=== PATIENT | male | born 1950 | race Caucasian/White ===

== ENCOUNTER 2016-11-22 15:38 | Inpatient (IN) | payer BC, OTHER ==
[~2016-11-22] VITALS: Ht 182.9 cm; Wt 95.0 kg
[2016-11-22 15:41] VITALS: Ht 182.9 cm; Wt 95.0 kg
[2016-11-22] MEDS ORDERED: SODIUM CHLORIDE 0.9% 500ML 500 ML IV STA (15:59)
[2016-11-22] MEDS ORDERED: SODIUM CHLORIDE 0.9% 1000ML 1,000 ML IV STA (15:59)
[2016-11-22] MEDS ORDERED: ONDANSETRON INJ 2 MG/ML 2 ML VIAL IV STA (15:59)
[2016-11-22] MEDS ORDERED: MULT-506 PO (16:11)
[2016-11-22] MEDS ORDERED: ASPI81TA28 PO (16:11)
[2016-11-22] MEDS: MoRPHine SULFATE 10 MG/ML CARP/VIAL IV PRN ×3 (16:13→17:14)
[2016-11-22] MEDS ORDERED: OPTIRAY 320 IV PRN (16:15)
--- NOTE | 2016-11-22 16:22 | EMERGENCY ROOM VISIT NOTE ---
History Report prepared by Ashwin: Sanjuana Yi Under the Supervision of: Dr. Aftab Yañez M.D. First contact with patient: 15:53 Chief Complaint: FALL Stated Complaint: FALL, BACK PAIN History of Present Illness The patient is a 66 year old male who presents to the Emergency Room with complaints of an episode of a fall occurring last night. He tripped going down the carpeted stairs. was outside when the incident occurred. They estimate that he fell down 6-7 stairs. He tumbled down the stairs as opposed to sliding down on his back and buttocks. He denies hitting his head or LOC. The patient is unsure if he hit his back when he fell. Immediately after the fall, he began experiencing back pain. Movement and deep breaths exacerbate his pain. The patient lay on the ground all night because he was having too much pain to move. He states that he feels better if he remains still. His pain comes in spasms and he rates it has a 10/10 in severity. The patient denies neck pain, abdominal pain, numbness, tingling, and any history of back injuries. He was brought to the ED by ambulance. He was given 200 mcg of fentanyl en route, which helped to alleviate some of his pain. He takes a daily baby aspirin and denies any other blood thinners. Family states that the patient's head looks "swollen" so they are not sure if he hit his head or not. Source of History: patient, family, spouse/significant other Onset: last night Position: other (global) Symptom Intensity: 10/10 Quality: other (spasm) Timing: other (episode) Modifying Factors (Worsening): breathing, movement Modifying Factors (Relieving): narcotics, other (remaining still) Associated Symptoms: + back pain, No LOC, No neck pain, No abdominal pain, No numbness Review of Systems See HPI for pertinent positives & negatives. A total of 10 systems reviewed and were otherwise negative. Past Medical & Surgical Medical Problems: (1) UMBILICAL HERNIA W OBSTR Family History No pertinent history stated. Social History Smoking Status: Current Every Day Smoker Alcohol Use: none Drug Use: none Marital Status: Housing Status: lives with family Occupation Status: employed Current/Historical Medications Scheduled Aspirin (Aspirin Ec), 81 MG PO DAILY Multivitamin (Multivitamin), 1 TAB PO DAILY Allergies Coded Allergies: No Known Allergies (Unverified , 11/22/16) Physical Exam Vital Signs Date Time Temp Pulse Resp B/P (MAP) Pulse Ox O2 Delivery O2 Flow Rate FiO2 11/22/16 16:41 99 18 154/94 96 Nasal Cannula 2.0 11/22/16 15:41 37.0 101 16 144/104 90 Room Air Physical Exam GENERAL: Patient is in moderate distress secondary to pain, lying on his right side. HEENT: No acute trauma, normocephalic atraumatic, mucous membranes moist, no nasal congestion, no scleral icterus. NECK: No stridor, no adenopathy, no meningismus, trachea is midline. LUNGS: Clear to auscultation bilaterally, no wheeze, no rhonchi, breath sounds equal. HEART: Without murmurs gallops or rubs, regular rate and rhythm. ABDOMEN: Soft, nontender, bowel sounds positive, no hernias, no peritonitis. BACK: Tender to the upper lumbar spine although there is no bony step-off. He is tender along the left lumbar musculature with what appears to be a contusion forming. Pain worsens with movement. EXTREMITIES: There is no obvious gross deformity. Contusion to the left elbow posteriorly and right knee anteriorly but no cellulitis or edema. NEUROLOGIC: Oriented x 3, no acute motor or sensory deficits, no focal weakness. SKIN: No rash, no jaundice, no diaphoresis. Medical Decision & Procedures ER Provider Diagnostic Interpretation: Radiology results as stated below per my review and radiologist interpretation: CHEST ONE VIEW PORTABLE CLINICAL HISTORY: 66 years-old Male presenting with fall. TECHNIQUE: Portable upright AP view of the chest was obtained. COMPARISON: 05/19/2010. FINDINGS: Cardiomediastinal silhouette shifted to the right, new from prior. Right lung volume loss with elevation of the right hemidiaphragm. Overall increased density of the right lung diffusely. Blunting of the right costophrenic angle. No pneumothorax. Osseous structures normal. Gaseous distention of the stomach. IMPRESSION: 1. Interval development of diffuse right lung volume loss with associated mediastinal shift. This could be related to prior surgery in the appropriate clinical setting. If no prior surgical history exists, further evaluation with CT is warranted. 2. Small right pleural effusion or pleural thickening. Electronically signed by: Charles Castañeda M.D. 11/22/2016 4:59 PM Dictated Date/Time: 11/22/2016 4:56 PM Laboratory Results 11/22/16 16:20 11/22/16 16:20 Test 11/22/16 16:20 Red Blood Count 4.58 M/uL (4.7-6.1) Mean Corpuscular Volume 98.3 fL (80-100) Mean Corpuscular Hemoglobin 34.1 pg (25-34) Mean Corpuscular Hemoglobin Concent 34.7 g/dl (32-36) RDW Standard Deviation 45.3 fL (36.4-46.3) RDW Coefficient of Variation 12.7 % (11.5-14.5) Mean Platelet Volume 10.7 fL (7.4-10.4) Anion Gap 7.0 mmol/L (3-11) Est Creatinine Clear Calc Drug Dose 98.4 ml/min Estimated GFR () 107.1 Estimated GFR (Non- 92.4 BUN/Creatinine Ratio 15.9 (10-20) Calcium Level 8.6 mg/dl (8.5-10.1) Total Bilirubin 0.7 mg/dl (0.2-1) Aspartate Amino Transf (AST/SGOT) 27 U/L (15-37) Alanine Aminotransferase (ALT/SGPT) 43 U/L (12-78) Alkaline Phosphatase 69 U/L (45-117) Total Creatine Kinase 123 U/L (39-308) Troponin I < 0.015 ng/ml (0-0.045) Total Protein 7.8 gm/dl (6.4-8.2) Albumin 3.4 gm/dl (3.4-5.0) Globulin 4.4 gm/dl (2.5-4.0) Albumin/Globulin Ratio 0.8 (0.9-2) Laboratory results reviewed by me. Medications Administered Medications (Trade) Dose Ordered Sig/[place] Route Start Time Stop Time Status Last Admin Dose Admin Morphine Sulfate (MoRPHine SULFATE INJ) 6 mg Q15M PRN IV 11/22/16 16:00 12/06/16 15:59 11/22/16 17:14 6 MG Ondansetron HCl (Zofran Inj) 4 mg NOW STAT IV 11/22/16 15:59 11/22/16 16:04 DC 11/22/16 16:13 4 MG Sodium Chloride 500 ml @ 999 mls/hr Q31M STAT IV 11/22/16 15:59 11/22/16 16:29 DC 11/22/16 15:59 999 MLS/HR ECG Indication: back/shoulder pain Rate (beats per minute): 93 Rhythm: normal sinus Findings: no acute ischemic change, no ectopy ED Course 1553: The patient was evaluated in room C10. A complete history and physical exam was performed. 1559: NSS 1000 ml @ 125 mls/hr IV, NSS 500 ml @ 999 mls/hr IV, Zofran 4 mg IV 1600: Morphine sulfate 6 mg IV - PRN 1722: Lorazepam 1 mg IV 1735: The patient was signed out to Dr. Navas at the change of shift. Medical Decision Differential diagnoses includes lumbar or thoracic fracture, lumbar spasm, cervical spine injury, head injury, dehydration, electrolyte imbalance, anemia, intraabdominal or chest trauma. There is no leukocytosis or concerning anemia. No significant electrolyte abnormality, kidney failure or hepatitis. No evidence for rhabdomyolysis. EKG shows a normal sinus rhythm, no acute ischemia. Cardiac enzyme testing times one is not consistent with acute cardiac injury. Chest x-ray shows some mediastinal shift to the right and a small right pleural effusion-a chest CT was recommended. Imaging of the brain, C-spine, thoracic/lumbar spine, chest and abdomen are pending. The patient received IV saline, he was given IV morphine and IV Zofran, he received IV Ativan. He is still having pain with movement. At this point, the case is being assumed by Dr. Navas, please see her notes for the results of the CT imaging. I suspect the patient will require a hospitalization just given the amount of pain he seems to be experiencing. I am somewhat reassured by the fact that he has no radicular symptoms or numbness or tingling in his lower extremities. He is under log roll only precautions as we are still waiting for the CT results. Certainly, fracture is a concern given his severe pain. Medication Reconcilliation Current Medication List: was personally reviewed by me Blood Pressure Screening Patient's blood pressure: Elevated blood pressure Blood pressure disposition: Elevated BP felt to be situational Impression Primary Impression: Lower back pain Additional Impressions: Abnormal chest xray Fall down stairs Scribe Attestation The scribe's documentation has been prepared under my direction and personally reviewed by me in its entirety. I confirm that the note above accurately reflects all work, treatment, procedures, and medical decision making performed by me. Departure Information Dispostion Still a Patient Referrals Elmer Farias M.D. (PCP) Patient Instructions My [facility] Problem Qualifiers Primary Impression: Lower back pain Chronicity: acute Back pain laterality: left Sciatica presence: without sciatica Qualified Codes: M54.5 - Low back pain Additional Impressions: Fall down stairs Encounter type: initial encounter Qualified Codes: W10.8XXA - Fall (on) ( from) other stairs and steps, initial encounter
[2016-11-22 16:44] LABS: MEAN CELL VOLUME 98.3 fL (80-100); MEAN CORPUSCULAR HEMOGLOBIN 34.1 pg (25-34); MEAN CORPUSCULAR HGB CONC 34.7 g/dl (32-36); MEAN PLATELET VOLUME 10.7 fL (7.4-10.4); PLATELET COUNT 181 K/uL (130-400); RED BLOOD COUNT 4.58 M/uL (4.7-6.1); WHITE BLOOD COUNT 8.42 K/uL (4.8-10.8)
--- NOTE | 2016-11-22 17:01 | DIAGNOSTIC IMAGING REPORT ---
CHEST ONE VIEW PORTABLE CLINICAL HISTORY: 66 years-old Male presenting with fall. TECHNIQUE: Portable upright AP view of the chest was obtained. COMPARISON: 05/19/2010. FINDINGS: Cardiomediastinal silhouette shifted to the right, new from prior. Right lung volume loss with elevation of the right hemidiaphragm. Overall increased density of the right lung diffusely. Blunting of the right costophrenic angle. No pneumothorax. Osseous structures normal. Gaseous distention of the stomach. IMPRESSION: 1. Interval development of diffuse right lung volume loss with associated mediastinal shift. This could be related to prior surgery in the appropriate clinical setting. If no prior surgical history exists, further evaluation with CT is warranted. 2. Small right pleural effusion or pleural thickening. Electronically signed by: Charles Castañeda M.D. 11/22/2016 4:59 PM Dictated Date/Time: 11/22/2016 4:56 PM
[2016-11-22 17:04] LABS: ALT/SGPT 43 U/L (12-78); AST/SGOT 27 U/L (15-37); BLOOD UREA NITROGEN 13 mg/dl (7-18); BUN/CREATININE RATIO 15.9 (10-20); CALCIUM 8.6 mg/dl (8.5-10.1); CARBON DIOXIDE 26 mmol/L (21-32); CHLORIDE 106 mmol/L (98-107); GLUCOSE 124 mg/dl (70-99); POTASSIUM 4.2 mmol/L (3.5-5.1); SODIUM 139 mmol/L (136-145)
[2016-11-22 17:09] LABS: ALB/GLOB RATIO 0.8 (0.9-2); ALKALINE PHOSPHATASE 69 U/L (45-117)
[2016-11-22] MEDS ORDERED: LORAZEPAM 2 MG/ML 1 ML VIAL IV STA (17:22)
--- NOTE | 2016-11-22 17:39 | DIAGNOSTIC IMAGING REPORT ---
CT SCAN OF THE BRAIN WITHOUT IV CONTRAST CLINICAL HISTORY: Fall. Trauma. COMPARISON STUDY: No priors. TECHNIQUE: Unenhanced axial CT scan of the brain is performed from the vertex to the skull base. FINDINGS: Brain parenchyma: There are age-related involutional changes noting mild subcortical and periventricular microangiopathic change. There is no hemorrhage, mass effect, or evidence of acute territorial ischemia by CT criteria. Mineralization is noted in the basal ganglia. Ashley-white matter is preserved. No extra-axial fluid collection is seen. Ventricles, sulci, cisterns: Prominent secondary to involutional change. Intracranial vasculature: There is atherosclerotic calcification of the cavernous carotid arteries. Calvarium: There is no depressed calvarial fracture. Sinuses and mastoids: The visualized paranasal sinuses are clear. The mastoid air cells are well pneumatized. Orbits: The bony orbits are grossly intact. IMPRESSION: No acute intracranial abnormality. Electronically signed by: Aftab Stringer M.D. 11/22/2016 5:28 PM Dictated Date/Time: 11/22/2016 5:26 PM
--- NOTE | 2016-11-22 17:39 | DIAGNOSTIC IMAGING REPORT ---
CT SCAN OF THE CERVICAL SPINE CLINICAL HISTORY: Trauma. Fall. COMPARISON STUDY: No priors. TECHNIQUE: CT scan of the cervical spine is performed from the skull base to the upper thoracic spine. Images are reviewed in the axial, sagittal, and coronal planes. IV contrast was not administered for this examination. A dose lowering technique was utilized adhering to the principles of ALARA. FINDINGS: Skeletal structures: The skeletal structures are osteopenic. There is no evidence of fracture or subluxation involving the cervical spine. Vertebral body height and alignment are maintained. The odontoid process and lateral masses are intact noting mild productive degenerative change. The atlantoaxial articulation is preserved. The spinous processes appear intact. Anterior osteophytes are seen from C4 through C6. There is mild to moderate multilevel cervical spondylosis. Uncovertebral and facet arthropathy are seen at several levels. Intervertebral discs: There is moderate degenerative disc space narrowing seen at C5-C6. Only mild disc space narrowing is seen at the remaining cervical levels. Central canal: A posterior disc osteophyte complex at C5-C6 may contribute to mild acquired compromise of the central canal. Soft tissues: The prevertebral and paraspinous soft tissues are within normal limits. A calcified sialolith is noted in the left parotid gland. Mild atherosclerotic calcification is seen in the left carotid bulb. Calvarium: The visualized calvarium at the skull base appears intact. Brain parenchyma: Partially visualized brain parenchyma the skull base is within normal limits. Sinuses and mastoids: The visualized paranasal sinuses are clear. The mastoid air cells are well pneumatized. Lung apices: Clear as visualized. IMPRESSION: 1. There is no evidence of fracture or subluxation involving the cervical spine. 2. Osteopenia and spondylotic change as above. Electronically signed by: Aftab Stringer M.D. 11/22/2016 5:36 PM Dictated Date/Time: 11/22/2016 5:32 PM
--- NOTE | 2016-11-22 17:56 | DIAGNOSTIC IMAGING REPORT ---
LUMBAR SPINE WITHOUT CLINICAL HISTORY: 66 years-old Male presenting with fall, pain. TECHNIQUE: Multidetector CT of the lumbar spine was performed without the use of intravenous contrast. IV contrast: None. A dose lowering technique was used consistent with the principles of ALARA (as low as reasonably achievable). COMPARISON: Correlation made to CT chest from 2011. CT DOSE (mGy.cm): The estimated cumulative dose is 3017.14 inclusive of the abdomen and pelvis, thoracic and cervical spine. FINDINGS: Lead Nitrate Processor topogram: Unremarkable. Dextroscoliotic curvature of the lumbar spine centered at L2-3. Vertebral body heights and alignment otherwise preserved. L3-4 and L5-S1 demonstrate osteophytosis and small disc bulges. Minimal intervertebral height loss at L5-S1. Multilevel facet arthropathy also noted. No osseous neural foraminal or spinal canal narrowing. No acute fracture or subluxation. Lucent lesion in the right ilium subjacent to the right sacroiliac joint may be degenerative in etiology. Paraspinal soft tissues remarkable for atherosclerosis of the normal caliber abdominal aorta. No paraspinal fat infiltration. IMPRESSION: No acute osseous injury of the lumbar spine. Electronically signed by: Charles Castañeda M.D. 11/22/2016 5:55 PM Dictated Date/Time: 11/22/2016 5:50 PM
--- NOTE | 2016-11-22 17:59 | DIAGNOSTIC IMAGING REPORT ---
CT SCAN OF THE CHEST, ABDOMEN, AND PELVIS WITH IV CONTRAST CLINICAL HISTORY: Trauma. Fall. COMPARISON STUDY: Chest x-ray dated 11/22/2016. Chest CT dated 07/22/2011. TECHNIQUE: Following the IV administration of 116 of Optiray 320, CT scan of the chest, abdomen, and pelvis was performed from the thoracic inlet to the proximal femora. Images are reviewed in the axial, sagittal, and coronal planes. IV contrast was administered without complication. Automated dose control exposure was utilized. A dose lowering technique was utilized adhering to the principles of ALARA. The examination is degraded by streak artifact from the patient's arms which could not be elevated above the chest or abdomen. CT DOSE: 3017.14 mGy.cm FINDINGS: CHEST: Thyroid: Imaged portions of the thyroid gland are normal in size and attenuation. Thoracic aorta: There is mild atherosclerotic calcification of the thoracic aorta, which is normal in caliber and demonstrates standard 3-vessel arch anatomy. No dissection is seen. Pulmonary vasculature: The pulmonary trunk is normal in caliber. There are no filling defects identified in the central pulmonary vessels to indicate pulmonary was. Note that this examination was not protocoled for evaluation of the pulmonary arteries. Heart: The heart is enlarged and without pericardial effusion. There are scattered coronary artery calcifications. Lungs and pleural spaces: No pneumothorax is seen. There is trace left pleural fluid. Segmental atelectasis is seen at the right lung base. No airspace consolidation is seen typical for pneumonia. Scattered calcified granulomas are observed. The trachea and central airways are clear. Mediastinum: There is no mediastinal hematoma. There are scattered subcentimeter mediastinal lymph nodes. These are not pathologically enlarged by size criteria. Pepper: Prominent hilar nodes measure up to 12 mm in short axis. Axillae: There is no axillary lymphadenopathy. Bony thorax: The skeletal structures are osteopenic. There are acute fractures of the left posterior 5th through 11th ribs. Several of the fractures are mildly distracted. There is a comminuted fracture of the right posterior 10th rib. The thoracic spine appears intact. Arthritic change is present in the thoracic spine and shoulders. No lytic or blastic lesions are identified. ABDOMEN AND PELVIS: Liver: The contrast-enhanced liver is top normal in size measuring 17.2 cm in length. The liver demonstrates diffusely diminished attenuation consistent with hepatic steatosis. There is no intrahepatic or ductal dilatation. The hepatic veins and portal veins are patent. Gallbladder: Unremarkable. Spleen: Normal in size and attenuation. Pancreas: Moderately atrophic. Adrenal glands: Unremarkable. Kidneys: The contrast enhanced kidneys demonstrate cortical atrophy and are without hydronephrosis. The kidneys enhance symmetrically. A subcentimeter cortical hypodensity in the left kidney likely represents a cyst but is too small for definitive characterization. Abdominal vasculature: The abdominal aorta is normal in course and caliber noting mild to moderate atherosclerotic calcification. Stomach and bowel: There is a small hiatal hernia. The stomach and duodenum otherwise normal in configuration. No bowel obstruction is seen. There is mild to moderate colonic diverticulosis without CT evidence of acute diverticulitis. The appendix is not identified and reported surgically absent. Peritoneum: There is no intraperitoneal free air or abdominal ascites. Lymphadenopathy: None. Pelvic viscera: The bladder, prostate, and seminal vesicles are normal as visualized. Skeletal structures: The skeletal structures are osteopenic. The lumbosacral spine and bony pelvis appear intact. Mild lumbosacral spondylosis is observed. No lytic or blastic lesions are seen. IMPRESSION: 1. There are acute left posterior 5th through 11th rib fractures. Several of these are mildly distracted. 2. There is a comminuted fracture of the right posterior 10th rib. 3. No pneumothorax is identified. 4. There is trace pleural fluid on the left and segmental atelectasis is present at the right lung base. 5. There is no evidence of traumatic injury to the thoracic aorta. 6. There is no evidence of solid organ injury in the abdomen or pelvis. 7. Hepatic steatosis. 8. Cardiomegaly and hiatal hernia. 9. Mild to moderate colonic diverticulosis without CT evidence of acute diverticulitis. 10. Mildly enlarged hilar lymph nodes are of indeterminant significance. 11. Additional findings as above. Electronically signed by: Aftab Stringer M.D. 11/22/2016 5:58 PM Dictated Date/Time: 11/22/2016 5:37 PM
--- NOTE | 2016-11-22 18:04 | DIAGNOSTIC IMAGING REPORT ---
THORACIC SPINE WITHOUT CLINICAL HISTORY: 66 years-old Male presenting with fall, pain. TECHNIQUE: Multidetector CT of the thoracic spine was performed without the use of intravenous contrast. IV contrast: None. A dose lowering technique was used consistent with the principles of ALARA (as low as reasonably achievable). COMPARISON: CT chest from 2012. CT DOSE (mGy.cm): The estimated cumulative dose is 3017.14 inclusive of the abdomen and pelvis, cervical spine, and lumbar spine. FINDINGS: Acute Care Certified Nursing Assistant topogram: Unremarkable. Vertebral body heights and alignment preserved. Lucent lesion in the T6 vertebral body, indeterminate and likely a hemangioma. No intervertebral disc height loss. Partially visualized fracture of the right posterior 10th rib. No other acute fracture or subluxation. Mild multilevel degenerative changes primarily in the lower thoracic spine including facet arthropathy. Paraspinal soft tissues remarkable for dependent pulmonary opacities, possibly atelectasis. Paraspinal musculature normal. IMPRESSION: No acute osseous injury of the thoracic spine. Partially visualized fracture of the right posterior 10th rib. Electronically signed by: Charles Castañeda M.D. 11/22/2016 6:03 PM Dictated Date/Time: 11/22/2016 5:55 PM
[2016-11-22] MEDS ORDERED: MoRPHine SULFATE 2 MG/ML CARP IV PRN (20:00)
[2016-11-22] MEDS ORDERED: ONDANSETRON INJ 2 MG/ML 2 ML VIAL IV PRN (20:00)
[2016-11-22 20:06] VITALS: BMI 27.2
[2016-11-22] MEDS: OXYCODONE HCL IR 5 MG TAB (IMMEDIATE RELEASE) PO PRN (20:35)
[2016-11-22 20:41] VITALS: BP 153/89; PULSE 99; TEMP 36.5; O2SAT 95
[2016-11-22] MEDS: CeleBREX 100 MG CAP PO SCH (21:36)
[2016-11-22] MEDS: ACETAMINOPHEN IV 1,000 MG in EMPTY BAG 0 ML IV SCH (21:37)
[2016-11-22 23:37] VITALS: BP 154/90; PULSE 77; TEMP 36.5; O2SAT 95
--- NOTE | 2016-11-22 23:46 | EMERGENCY ROOM VISIT NOTE ---
ED Visit Note First contact with patient: 17:37 I received signout at the change of shift from Dr. Aftab Yañez, pending CT scan results. Multiple CT scans had been ordered. Most notable, the patient has acute rib fractures of the left 5 through 11 and a comminuted isolated rib fracture of the right rib 10. Patient has no pneumothorax. There is no solid organ injury. Please refer to radiology's read for further detail. I did speak with Dr. Darryn Mercer of the hospitalist service who stated surgical consult would be advised or transfer. He then requested Dr. Jonas be contacted. I did speak with Dr. Jonas who recommended that I speak with surgery , Dr. Craig. He agreed that the patient is stable for admission to [facility] for pain management. The patient had nearly 24 hours after the fall with no complications such as pneumothorax. The hospitalist service declined admission. Dr. Craig was contacted and did accept the patient for admission and further management. Family was informed of the findings and agrees with the plan. Diagnosis: Multiple rib fractures
[2016-11-23] VITALS (8 sets, daily range): BP systolic 127–160; BP diastolic 82–100; PULSE 72–88; TEMP 36.4–37; O2SAT 92–97
[2016-11-23] MEDS: OXYCODONE HCL IR 5 MG TAB (IMMEDIATE RELEASE) PO PRN ×5 (03:25→22:06)
[2016-11-23 03:47] LABS: URINE APPEARANCE CLEAR (CLEAR); URINE BILIRUBIN NEG (NEG); URINE COLOR YELLOW; URINE NITRITE NEG (NEG); URINE PH 5.5 (4.5-7.5); URINE SPECIFIC GRAVITY > 1.045 (1.000-1.030); UROBILINOGEN NEG (NEG)
[2016-11-23 04:00] LABS: MANUAL MICROSCOPIC REQUIRED? NO; REVIEW REQ? NO
[2016-11-23 05:31] LABS: HEMATOCRIT 43.1 % (42-52); MEAN CELL VOLUME 99.8 fL (80-100); MEAN CORPUSCULAR HEMOGLOBIN 34.5 pg (25-34); MEAN CORPUSCULAR HGB CONC 34.6 g/dl (32-36); MEAN PLATELET VOLUME 10.5 fL (7.4-10.4); PLATELET COUNT 160 K/uL (130-400); RED BLOOD COUNT 4.32 M/uL (4.7-6.1); WHITE BLOOD COUNT 7.72 K/uL (4.8-10.8)
[2016-11-23] MEDS: ACETAMINOPHEN IV 1,000 MG in EMPTY BAG 0 ML IV SCH ×3 (05:57→22:07)
--- NOTE | 2016-11-23 07:15 | History and Physical ---
History & Physical Date & Time of Service: Nov 23, 2016 at 07:11 Chief Complaint: Ribs, Multiple Fractures Primary Care Physician: Elmer Farias M.D. History of Present Illness pt s/p trip /fall down approx 6 steps 2 nights ago. laid on floor overnight secondary to pain. baig-cat scanned and only injury appears to be 5 rib fractures. no other complaints. Past Medical/Surgical History Medical Problems: (1) UMBILICAL HERNIA W OBSTR Status: Resolved Social History Smoking Status: Current Every Day Smoker Drug Use: none Marital Status: Occupational Status: employed Immunizations History of Influenza Vaccine: No History of Tetanus Vaccine?: Yes History of Pneumococcal: No History of Hepatitis B Vaccine: No Multi-Drug Resistant Organisms History of MDRO: No Allergies Coded Allergies: No Known Allergies (Unverified , 11/22/16) Home Medications Scheduled Aspirin (Aspirin Ec), 81 MG PO DAILY Multivitamin (Multivitamin), 1 TAB PO DAILY Review of Systems Cardiovascular: + chest pain Abdomen: + pain Physical Exam Vital Signs Date Time Temp Pulse Resp B/P (MAP) Pulse Ox O2 Delivery O2 Flow Rate FiO2 11/23/16 04:00 96 Nasal Cannula 2.0 11/23/16 03:18 36.7 73 21 139/86 (103) 97 Nasal Cannula 2.0 11/23/16 00:00 95 Nasal Cannula 2.0 11/22/16 23:37 36.5 77 18 154/90 (111) 95 Nasal Cannula 2.0 11/22/16 20:41 36.5 99 18 153/89 (110) 95 Nasal Cannula 2.0 11/22/16 20:06 Nasal Cannula 2.0 11/22/16 20:03 95 18 142/89 96 Room Air 11/22/16 17:57 99 18 145/80 95 Nasal Cannula 2.0 11/22/16 16:41 99 18 154/94 96 Nasal Cannula 2.0 11/22/16 15:41 37.0 101 16 144/104 90 Room Air General Appearance: + mild distress Head: normocephalic, atraumatic Eyes: PERRL, EOMI ENT: hearing grossly normal Neck: supple, no JVD Respiratory/Chest: no respiratory distress, no accessory muscle use Cardiovascular: regular rate, rhythm Abdomen/GI: non tender, soft, + pertinent finding (tenderness over left rib cage diffusely) Neurologic/Psych: alert, oriented x 3 Skin: normal color, warm/dry Diagnostics Laboratory Results Results Past 24 Hours Test 11/22/16 16:20 11/23/16 03:30 11/23/16 05:20 Range/Units White Blood Count 8.42 7.72 4.8-10.8 K/uL Red Blood Count 4.58 4.32 4.7-6.1 M/uL Hemoglobin 15.6 14.9 14.0-18.0 g/dL Hematocrit 45.0 43.1 42-52 % Mean Corpuscular Volume 98.3 99.8 80-100 fL Mean Corpuscular Hemoglobin 34.1 34.5 25-34 pg Mean Corpuscular Hemoglobin Concent 34.7 34.6 32-36 g/dl RDW Standard Deviation 45.3 46.4 36.4-46.3 fL RDW Coefficient of Variation 12.7 12.7 11.5-14.5 % Platelet Count 181 160 130-400 K/uL Mean Platelet Volume 10.7 10.5 7.4-10.4 fL Sodium Level 139 136-145 mmol/L Potassium Level 4.2 3.5-5.1 mmol/L Chloride Level 106 98-107 mmol/L Carbon Dioxide Level 26 21-32 mmol/L Anion Gap 7.0 3-11 mmol/L Blood Urea Nitrogen 13 7-18 mg/dl Creatinine 0.80 0.60-1.40 mg/dl Est Creatinine Clear Calc Drug Dose 98.4 ml/min Estimated GFR () 107.1 Estimated GFR (Non- 92.4 BUN/Creatinine Ratio 15.9 10-20 Random Glucose 124 70-99 mg/dl Calcium Level 8.6 8.5-10.1 mg/dl Total Bilirubin 0.7 0.2-1 mg/dl Aspartate Amino Transf (AST/SGOT) 27 15-37 U/L Alanine Aminotransferase (ALT/SGPT) 43 12-78 U/L Alkaline Phosphatase 69 45-117 U/L Total Creatine Kinase 123 39-308 U/L Troponin I < 0.015 0-0.045 ng/ml Total Protein 7.8 6.4-8.2 gm/dl Albumin 3.4 3.4-5.0 gm/dl Globulin 4.4 2.5-4.0 gm/dl Albumin/Globulin Ratio 0.8 0.9-2 Urine Color YELLOW Urine Appearance CLEAR CLEAR Urine pH 5.5 4.5-7.5 Urine Specific [place] > 1.045 1.000-1.030 Urine Protein NEG NEG Urine Glucose (UA) NEG NEG Urine Ketones 1+ NEG Urine Occult Blood NEG NEG Urine Nitrite NEG NEG Urine Bilirubin NEG NEG Urine Urobilinogen NEG NEG Urine Leukocyte Esterase NEG NEG Diagnostic Radiology rib fx's 5-11. no pneumothorax. no other abnormality Impression Assessment and Plan 1. traumatic rib fractures times 5 stable c/o of severe pain though after speaking to his nurse he did not get anything other than roxicodone overnight as he was sleeping will add duragesic patch as well as abdominal binder. will re-examine later today to see how this regiment does for him d/c planning Advanced Directives Existing Living Will: No Existing Power of Printed Forms Proofreader: No VTE Prophylaxis VTE Risk Assessment Done? Y/N: Yes Risk Level: Moderate
[2016-11-23] MEDS ORDERED: FENTANYL PATCH REMOVE & WASTE SCH (07:29)
[2016-11-23] MEDS ORDERED: FENTANYL 50 MCG/HR TDSY TD SCH (07:30)
[2016-11-23 07:44] LABS: PARTIAL THROMBOPLASTIN RATIO 1.1; PROTHROMBIN TIME (PATIENT) 10.7 SECONDS (9.0-12.0)
[2016-11-23] MEDS: ENOXAPARIN 40 MG/0.4 ML SYR SQ SCH (08:16)
[2016-11-23] MEDS: CeleBREX 100 MG CAP PO SCH ×2 (08:17→21:03)
[2016-11-23] MEDS: CHECK FENTANYL PATCH PLACEMENT SCH ×3 (08:19→23:21)
--- NOTE | 2016-11-23 09:43 | DIAGNOSTIC IMAGING REPORT ---
TWO VIEW CHEST CLINICAL HISTORY: Fall with rib fractures. FINDINGS: PA and lateral chest radiographs are compared to chest x-ray and chest CT dated 11/22/2016. The PA view is degraded by patient rotation. The heart is enlarged. The pulmonary vasculature is noncongested. Segmental atelectasis is present the right lung base. There is a trace right pleural effusion. Mild atelectasis is seen at the left lung base. There is no pneumothorax. Bilateral rib fractures are noted. IMPRESSION: 1. Bilateral rib fractures. No pneumothorax is seen. 2. Segmental atelectasis and trace pleural fluid is again seen at the right lung base. 3. Cardiomegaly without radiographic evidence of congestive failure. Electronically signed by: Aftab Stringer M.D. 11/23/2016 9:42 AM Dictated Date/Time: 11/23/2016 9:39 AM
[2016-11-23] MEDS ORDERED: RXC5 PO (12:10)
[2016-11-23] MEDS ORDERED: DRGTP50 TD (12:10)
[2016-11-23] MEDS ORDERED: CLB100 PO (12:10)
--- NOTE | 2016-11-23 12:12 | Discharge Instructions ---
Discharge Instructions Date of Service Nov 23, 2016. Admission Reason for Admission: Ribs, Multiple Fractures Discharge Discharge Diagnosis / Problem: rib fractures Discharge Goals Goal(s): Decrease discomfort Activity Recommendations Activity Limitations: resume your previous activity Driving or Machine Use: no driving while using patch or Oxycodone . Instructions / Follow-Up Instructions / Follow-Up Dr. Craig in 1-2 weeks, call [phone] to schedule, [address] Continue to use spirometer at home every hour while awake Current Hospital Diet Patient's current hospital diet: Regular Diet Discharge Diet Recommended Diet: Regular Diet Pending Studies Studies pending at discharge: no Medical Emergencies . Who to Call and When: Medical Emergencies: If at any time you feel your situation is an emergency, please call 911 immediately. . Non-Emergent Contact Non-Emergency issues call your: Surgeon Call Non-Emergent contact if: you have a fever, temperature is above 101.5, your pain is not controlled, you have any medication questions . "Provider Documentation" section prepared by Barrett Trevino. . VTE Core Measure Inpt VTE Proph given/why not?: SCD's [place] Drug Monitoring Program Search Results: no issues identified
--- NOTE | 2016-11-23 13:32 | Progress Note ---
Progress Note Date of Service Nov 23, 2016. Progress Note pain control marginal will keep here today if not improved in AM will ask anesthesia to see for possible block
[2016-11-23] MEDS ORDERED: IV FLUIDS COMPLETED PRN (15:45)
[2016-11-23] MEDS: MoRPHine SULFATE 4 MG/ML 1 ML CARP\\VIAL IV PRN (19:48)
[2016-11-24] VITALS (9 sets, daily range): BP systolic 102–150; BP diastolic 69–96; PULSE 72–96; TEMP 36.6–36.9; O2SAT 90–95
[2016-11-24] MEDS: OXYCODONE HCL IR 5 MG TAB (IMMEDIATE RELEASE) PO PRN ×2 (04:02→08:11)
[2016-11-24] MEDS: ACETAMINOPHEN IV 1,000 MG in EMPTY BAG 0 ML IV SCH ×3 (06:04→21:53)
[2016-11-24] MEDS: CHECK FENTANYL PATCH PLACEMENT SCH (08:07)
[2016-11-24] MEDS: ENOXAPARIN 40 MG/0.4 ML SYR SQ SCH (08:08)
[2016-11-24] MEDS: CeleBREX 100 MG CAP PO SCH (08:08)
--- NOTE | 2016-11-24 08:31 | Clinical Documentation Query ---
MARCELLUS Purcell : CLINICAL DOCUMENTATION QUERIES QUERY 1 OF 2 Patient is a 66 year old male admitted s/p fall down approximately 6 steps with acute rib fractures. H&P documentation includes "traumatic rib fractures times 5". CT scan of the chest, however, is read to include "there are acute left posterior 5th through 11th rib fractures and "there is a comminuted fracture of the right posterior 10th rib". To ascertain the clinical integrity of the EMR, please clarify as suggested below. Thank you. In your clinical opinion is this patient being managed for: ( ) Traumatic left posterior rib fractures times 5 ( X) Traumatic left posterior rib fractures times 7 and comminuted traumatic right posterior rib fracture ( ) Other explanation of clinical findings (Please Explain) ( ) Unable to determine (Please Define) ( ) Need to Discuss ( ) Not Agree The medical record reflects the following clinical findings, treatment, and risk factors. Clinical Indicators: As above Treatment: Duragesic, abdominal binder Risk Factors: trauma QUERY 2 OF 2 Initial chest radiograph reading included: "Interval development of diffuse right lung volume loss ". CT scan of the chest reiterated these findings, noting "segmental atelectasis is present at the right lung base". Patient has been ordered incentive spirometry, analgesia, and an abdominal binder in attempt to control pain and enhance oxygenation/willingness to deep breath. As appropriate, consider explicit documentation as suggested below as this impacts DRG assignment. Thank you. In your clinical opinion is this patient being managed for: ( X ) Atelectasis ( ) Other explanation of clinical findings (Please Explain) ( ) Unable to determine (Please Define) ( ) Need to Discuss ( ) Not Agree The medical record reflects the following clinical findings, treatment, and risk factors. Clinical Indicators: As above Treatment:Patient has been ordered incentive spirometry, analgesia, and an abdominal binder Risk Factors: Pain associated with fractures. Please clarify and document your clinical opinion in the progress notes and discharge summary. Terms such as "probable", "suspected", "likely", "questionable", "possible", or "still to be ruled out" are acceptable. IF IN AGREEMENT, YOU MUST DOCUMENT ABOVE DIAGNOSTIC STATEMENT IN DAILY PROGRESS NOTES AND DISCHARGE SUMMARY. This document is not part of the patient's record. Thank You, Juancarlos Clark, MARKO [phone]
--- NOTE | 2016-11-24 09:14 | Surgery Progress Note ---
Surgery Progress Note Date of Service Nov 24, 2016. Subjective + complaints (pain) Objective Vital Signs: Date Time Temp Pulse Resp B/P (MAP) Pulse Ox O2 Delivery O2 Flow Rate FiO2 11/24/16 08:00 Room Air 11/24/16 07:25 36.9 84 18 133/96 (108) 92 Room Air 11/24/16 04:16 36.6 76 18 150/95 (113) 93 Room Air 11/24/16 04:00 Room Air 11/24/16 00:00 36.9 77 20 139/87 (104) 91 Room Air 11/23/16 23:59 Room Air 11/23/16 20:00 Room Air 11/23/16 19:36 37.0 88 18 160/100 (120) 92 Room Air 11/23/16 16:00 Room Air 11/23/16 15:28 36.6 77 22 159/97 (117) 93 Room Air 11/23/16 12:00 Room Air 11/23/16 11:26 36.4 79 18 127/82 (97) 94 Room Air General Appearance: + moderate distress Assessment & Plan multiple rib fx left 5-11, right 10 continues to have pain, will ask anesthesia to see for possible epidural cont IS A/P rib fractures times 7 with atelectasis pt seen. as above. mostly having spasms will add ativan q12 hours for spasms discussed/consult anesthesia for possible block not ready for d/c yet
[2016-11-24] MEDS: MoRPHine SULFATE 4 MG/ML 1 ML CARP\\VIAL IV PRN (09:27)
[2016-11-24] MEDS ORDERED: LORAZEPAM 0.5 MG TAB PO PRN (09:30)
[2016-11-24] MEDS ORDERED: NALOXONE HCL 0.4 MG/1 ML VIAL/CARP IV PRN (09:45)
[2016-11-24] MEDS ORDERED: FENTANYL PATCH REMOVE & WASTE SCH (10:00)
[2016-11-24] MEDS ORDERED: CeleBREX 100 MG CAP PO ONE (10:00)
--- NOTE | 2016-11-24 10:02 | Anesthesiology Progress Note ---
Anesthesia Progress Note Date of Service Nov 24, 2016. Progress Notes Asked to evaluate 66yo male for pain management. Pt fell down stairs and sustained multiple rib fractures. He is presently on IV acetaminophen, fentanyl patch, po and iv narcotic. States he is comfortable lying still, but has severe pain in ribs on movement and has paroxysms of pain. PMH is non- contributory. Pt is a smoker but reportedly was on no meds prior to fall. He did receive Lovenox injection this morning. Thoracic epidural infusion can be used to provide analgesia for rib fractures. However, this morning's Lovenox dose contraindicates epidural at this time. Discussed with surgical staff who planned to D/C Lovenox. Will re-evaluate tomorrow and discuss with pt and surgeon regarding possible epidural for analgesia at that time.
[2016-11-24] MEDS: SODIUM CHLORIDE 0.9% 1000ML 1,000 ML IV SCH (10:25)
[2016-11-24] MEDS: HYDROmorphone HCL 0.5MG/ML 50 ML CASSETTE IV PRN ×4 (10:26→23:18)
[2016-11-24] MEDS: CeleBREX 200 MG CAP PO SCH (20:47)
[2016-11-24] MEDS: LORAZEPAM 0.5 MG TAB PO SCH (20:48)
[2016-11-25 03:51] VITALS: BP 128/85; PULSE 66; TEMP 36.7; O2SAT 91
[2016-11-25] MEDS: ACETAMINOPHEN IV 1,000 MG in EMPTY BAG 0 ML IV SCH ×3 (05:39→22:00)
[2016-11-25] MEDS: HYDROmorphone HCL 0.5MG/ML 50 ML CASSETTE IV PRN ×4 (07:02→22:35)
[2016-11-25 08:05] VITALS: BP 124/82; PULSE 79; TEMP 36.5; O2SAT 91
[2016-11-25] MEDS: CeleBREX 200 MG CAP PO SCH ×2 (09:03→21:58)
[2016-11-25] MEDS: LORAZEPAM 0.5 MG TAB PO SCH ×2 (09:03→21:11)
--- NOTE | 2016-11-25 09:43 | Surgery Progress Note ---
Surgery Progress Note Date of Service Nov 25, 2016. Subjective pain control better, Ativan seemed to help the most, not used GREEN PRIZE PACKER this AM but does have basal of 0.5mg Objective Vital Signs: Date Time Temp Pulse Resp B/P (MAP) Pulse Ox O2 Delivery O2 Flow Rate FiO2 11/25/16 08:05 36.5 79 16 124/82 (96) 91 Room Air 11/25/16 03:51 36.7 66 16 128/85 (99) 91 Room Air 11/25/16 00:20 Room Air 11/24/16 23:12 36.7 77 16 126/69 (88) 90 Room Air 11/24/16 19:05 36.8 83 18 135/85 (102) 91 Room Air 11/24/16 15:45 Room Air 11/24/16 15:35 36.6 81 18 128/82 (97) 90 Room Air 11/24/16 12:02 96 16 102/72 (82) 91 Room Air 11/24/16 11:20 36.9 96 16 91 2.0 General Appearance: no apparent distress Assessment & Plan multiple rib fx left 5-11, right 10 pain control better, will stop basal rate on GREEN PRIZE PACKER anesthesia to see again, see how he is doing without basal rate, Lovenox held for possible epidural hopefully transition to po meds only over next 24-48 hrs (ativan, oxycodone, celebrex) seen with Rafa Mccoy
[2016-11-25 09:46] VITALS: O2SAT 91
[2016-11-25] MEDS ORDERED: LORA-741 PO (10:01)
[2016-11-25] MEDS ORDERED: OXYC-57 PO (10:02)
[2016-11-25] MEDS: SODIUM CHLORIDE 0.9% 1000ML 1,000 ML IV SCH (12:06)
[2016-11-25] MEDS ORDERED: NURSING VERBAL MED ORDER ONE (12:15)
[2016-11-25 12:18] VITALS: BP 152/90; PULSE 70; TEMP 36.7; O2SAT 93
[2016-11-25 15:00] VITALS: BP 155/94; PULSE 73; TEMP 36.7; O2SAT 92
[2016-11-25 23:00] VITALS: BP 137/90; PULSE 77; TEMP 36.9; O2SAT 92
[2016-11-26] VITALS (16 sets, daily range): BP systolic 103–152; BP diastolic 74–99; PULSE 67–110; TEMP 36.5–36.9; O2SAT 90–94
[2016-11-26] MEDS: ACETAMINOPHEN IV 1,000 MG in EMPTY BAG 0 ML IV SCH ×3 (05:44→21:33)
[2016-11-26] MEDS: HYDROmorphone HCL 0.5MG/ML 50 ML CASSETTE IV PRN ×4 (07:07→23:06)
[2016-11-26 08:14] LABS: HEMATOCRIT 40.8 % (42-52); MEAN CELL VOLUME 98.6 fL (80-100); MEAN CORPUSCULAR HGB CONC 35.5 g/dl (32-36); MEAN PLATELET VOLUME 10.7 fL (7.4-10.4); PLATELET COUNT 148 K/uL (130-400); RED BLOOD COUNT 4.14 M/uL (4.7-6.1); WHITE BLOOD COUNT 4.25 K/uL (4.8-10.8)
[2016-11-26 08:49] LABS: CREATININE 0.61 mg/dl (0.60-1.40)
[2016-11-26] MEDS: LORAZEPAM 0.5 MG TAB PO SCH ×2 (09:10→20:44)
[2016-11-26] MEDS: CeleBREX 200 MG CAP PO SCH ×2 (09:11→20:44)
[2016-11-26] MEDS: SODIUM CHLORIDE 0.9% 1000ML 1,000 ML IV SCH (10:03)
--- NOTE | 2016-11-26 10:35 | Surgery Progress Note ---
Surgery Progress Note Date of Service Nov 26, 2016. Subjective No nausea, No vomiting Pain is controlled on his lying still but he is still having some discomfort when he tries to sit up. It difficulty sitting up today when I was into visit. He denies shortness of breath. He has not had a cough or hemoptysis. Objective Vital Signs: Date Time Temp Pulse Resp B/P (MAP) Pulse Ox O2 Delivery O2 Flow Rate FiO2 11/26/16 07:20 Room Air 11/26/16 07:16 36.8 81 19 152/90 (110) 91 Room Air 11/26/16 03:22 36.5 67 16 146/93 (110) 93 Room Air 11/25/16 23:26 Room Air 11/25/16 23:00 36.9 77 16 137/90 (106) 92 Room Air 11/25/16 15:20 Room Air 11/25/16 15:00 36.7 73 20 155/94 (114) 92 Room Air 11/25/16 12:18 36.7 70 16 152/90 (110) 93 Room Air Respiratory/Chest: lungs clear Abdomen: normal bowel sounds, non tender, non distended, soft Laboratory Results: Results Past 24 Hours Test 11/26/16 07:20 Range/Units White Blood Count 4.25 4.8-10.8 K/uL Red Blood Count 4.14 4.7-6.1 M/uL Hemoglobin 14.5 14.0-18.0 g/dL Hematocrit 40.8 42-52 % Mean Corpuscular Volume 98.6 80-100 fL Mean Corpuscular Hemoglobin 35.0 25-34 pg Mean Corpuscular Hemoglobin Concent 35.5 32-36 g/dl RDW Standard Deviation 45.6 36.4-46.3 fL RDW Coefficient of Variation 12.7 11.5-14.5 % Platelet Count 148 130-400 K/uL Mean Platelet Volume 10.7 7.4-10.4 fL Creatinine 0.61 0.60-1.40 mg/dl Est Creatinine Clear Calc Drug Dose 140.5 ml/min Estimated GFR () 119.8 Estimated GFR (Non- 103.3 Assessment & Plan He has multiple rib fractures. He continues to have pain with movement. I don' t think he can go home with this level of discomfort. I discussed with anesthesia placement of an epidural catheter for which she has been previously evaluated. We'll await their opinion. I'll
--- NOTE | 2016-11-26 15:29 | Anesthesiology Progress Note ---
Anesthesia Progress Note Date of Service Nov 26, 2016. Progress Notes Pt seen and interviewed re: thoracic epidural to help with pain control for bilateral rib fractures. Lovenox has been held. Coags wnl. Risks/benefits explained and patient was consented. Procedure done under sterile/aseptic technique. Monitors placed. Attempted placement at T6-T7, and T7-T8 level using both midline and paramedian approach, but unsuccessful. Procedure aborted per patient request. Will discuss with Dr. Morales to see if he can attempt placement. VSS stable throughout.
--- NOTE | 2016-11-26 20:51 | Anesthesiology Progress Note ---
Anesthesia Progress Note Date of Service Nov 26, 2016. Progress Notes Patient evaluated for pain control s/p multiple traumatic rib fractures. Anesthesia department was consulted an a mid thoracic epidural was attempted earlier today by a different physician without success. I spoke with the patient an offered to attempt the procedure myself, which he declined. The patient was sitting up in bed, has been up to chair, is not requiring supplemental oxygen, and was able to deep breathe with some discomfort. Thus I feel his chance for pulmonary complications is low and it is not unreasonable to decline epidural placement. He would actually like to go home. 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 A neuromodulator such as gabapentin ( titrated as tolerated to 300mg TID) may also be of use in transitioning his pain regimen for discharge. Again agree with his out of bed, and incentive breathing regimen. We would be happy to reevaluate the patient for thoracic epidural if he changes his mind and will remain in the hospital for any significant length of time.
[2016-11-27 03:10] VITALS: BP 158/91; PULSE 66; TEMP 36.5; O2SAT 93
[2016-11-27] MEDS: ACETAMINOPHEN IV 1,000 MG in EMPTY BAG 0 ML IV SCH (05:40)
[2016-11-27 07:14] VITALS: BP 186/92; PULSE 66; TEMP 36.6; O2SAT 93
[2016-11-27] MEDS: LORAZEPAM 0.5 MG TAB PO SCH (08:36)
[2016-11-27] MEDS: OXYCODONE HCL IR 5 MG TAB (IMMEDIATE RELEASE) PO PRN ×2 (08:36→12:27)
[2016-11-27] MEDS: CeleBREX 200 MG CAP PO SCH (08:37)
[2016-11-27] MEDS: SODIUM CHLORIDE 0.9% 1000ML 1,000 ML IV SCH (09:44)
--- NOTE | 2016-11-27 13:02 | Surgery Progress Note ---
Surgery Progress Note Date of Service Nov 27, 2016. Subjective No SOB, No nausea, No vomiting Feels better today, less pain Objective Vital Signs: Date Time Temp Pulse Resp B/P (MAP) Pulse Ox O2 Delivery O2 Flow Rate FiO2 11/27/16 09:41 Room Air 11/27/16 07:14 36.6 66 16 186/92 (123) 93 Room Air 11/27/16 03:10 36.5 66 16 158/91 (113) 93 Room Air 11/26/16 23:02 36.7 68 17 123/74 (90) 94 Room Air 11/26/16 23:00 Room Air 11/26/16 19:01 36.9 76 18 144/87 (106) 93 Room Air 11/26/16 16:15 94 Room Air 11/26/16 15:29 36.6 81 18 134/85 (101) 94 Room Air 11/26/16 14:14 104 124/91 (102) 91 Room Air 11/26/16 14:09 121/87 (98) 11/26/16 14:04 104 128/88 (101) 92 Room Air 11/26/16 13:59 103 123/86 (98) 90 Room Air 11/26/16 13:54 110 124/88 (100) 92 Room Air 11/26/16 13:50 106 120/82 (95) 92 Room Air 11/26/16 13:44 107 124/88 (100) 93 Room Air 11/26/16 13:39 105 136/99 (111) 92 Room Air 11/26/16 13:35 103 103/92 (96) 92 Room Air 11/26/16 13:29 95 132/89 (103) 94 Room Air Respiratory/Chest: chest non-tender, lungs clear, normal breath sounds Abdomen: normal bowel sounds, non tender, non distended Assessment & Plan He has multiple rib fractures. Epidural not successful yesterday Feels better Ambulating better Can D/C to home Follow up with Dr. Craig
[2016-11-27 13:09] VITALS: BP 186/92; PULSE 66; TEMP 36.6; O2SAT 93
--- NOTE | 2016-11-29 07:56 | Discharge Summary ---
Discharge Summary Date of Service Nov 29, 2016. Admission Date/Reason Nov 23, 2016 at 14:50 Ribs, Multiple Fractures. Discharge Date/Disposition Nov 27, 2016 Home Diagnosis Principal Diagnosis: Multiple rib fractures left 5-11, right 10 due to fall Procedure(s) Performed Attempt at epidural Consultations Anesthesia for epidural Medication Reconciliation New Medications: Lorazepam (Ativan) 0.5 Mg Tab 0.5 MG PO BID, #30 TAB Oxycodone/Acetaminophen 5MG/325MG (Percocet 5MG/325MG) Tab 1-2 TABLETS PO Q4 PRN for Pain, #60 TAB Celecoxib (Celebrex) 100 Mg Cap 100 MG PO BID, #30 CAP Continued Medications: Aspirin (Aspirin Ec) 81 Mg Tab 81 MG PO DAILY Multivitamin (Multivitamin) Tab 1 TAB PO DAILY, TAB Admission Physical Exam As per Admitting History & Physical. Hospital Course 66 y/o male fell down 6-7 stairs at his home at night. He came to the ED the next evening c/o back/chest pain. CT showed multiple rib fractures, no pneumothorax. He was admitted to the surgery service for observation and pain control. CXR in the morning was stable. His pain control was marginal over the next 24 hours with Duragesic, Celebrex and morphine. We asked anesthesia to evaluate him for epidural but he had already received his daily Lovenox for DVT prophylaxis. We changed him to KILN MECHANIC with continuous and increased Celebrex. He was doing better with the KILN MECHANIC over the next 24 hours but when we discontinued the basal rate his pain increased. Anesthesia saw him again but had difficulty placing an epidural and the patient declined any further attempts. By the next day his pain control was better. Once he was tolerating oral analgesics he was stable for discharge on hospital day 5. Discharge Instructions Follow-up Dr. Craig in 1-2 weeks Please refer to the electronic Patient Visit Report (Discharge Instructions) for additional information.
== END 2016-11-27 13:52 | disposition home or self-care (01) | DRG 184 ==
LOC: EDBD 15:38 → C.EDC 15:41 → C.2T 20:02 → UNDOADMOB 20:02 → ENRESERV 20:05 → OBSVTOIN 11-23 14:50 → ENRESERV 11-24 11:01 → C.MSW 11-24 11:42
PROVIDERS: ADMIT Surgery; ATTEND Surgery
PROC: 3E0R3BZ Introduction of Anesthetic Agent into Spinal Canal, Percutaneous Approach (ICD-10-PCS; principal; 2016-11-26)
DX: S22.42XA Multiple fractures of ribs, left side, initial encounter for closed fracture (principal); J98.11 Atelectasis; W10.9XXA Fall (on) (from) unspecified stairs and steps, initial encounter; F17.200 Nicotine dependence, unspecified, uncomplicated; S22.31XA Fracture of one rib, right side, initial encounter for closed fracture; Z79.82 Long term (current) use of aspirin

== ENCOUNTER 2017-02-16 09:07 | Inpatient (IN) | payer OTHER ==
[~2017-02-16] VITALS: Ht 182.9 cm; Wt 85.2 kg
[2017-02-16] VITALS (9 sets, daily range): BP systolic 91–127; BP diastolic 57–89; PULSE 73–124; TEMP 36.4–39.4; O2SAT 92–98; Ht 182.9 cm; Wt 85.2 kg
[~2017-02-16 09:07] MED LIST: ASPI81TA28 PO; CLB100 PO; MULT-506 PO; OXYC-57 PO
[2017-02-16] MEDS ORDERED: MoRPHine SULFATE 10 MG/ML CARP/VIAL IV STA (09:20)
[2017-02-16] MEDS ORDERED: ASPIRIN 81 MG CHEW PO STA (09:20)
--- NOTE | 2017-02-16 09:21 | EMERGENCY ROOM VISIT NOTE ---
History Report prepared by Ashwin: Calista Gregory Under the Supervision of: Dr. Gray Obrien M.D. First contact with patient: 09:13 Chief Complaint: CHEST PAIN Stated Complaint: CHEST PAINS History of Present Illness The patient is a 67 year old male who presents to the Emergency Room with complaints of persistent central chest pain that began several days ago. He currently rates his discomfort as an 8/10 in severity. The patient states that he became diaphoretic. He states that three months ago he fell and broke multiple left ribs. The patient denies any cardiac history of family history of heart disease. He denies any previous stress test or cardiac catheterization. The patient states that his pain is worsened with pressing on his chest, movement, and deep breathing. He denies taking anything for his discomfort. Source of History: patient Onset: several days ago Position: chest Symptom Intensity: 8/10 Timing: other (persistent) Modifying Factors (Worsening): breathing (deep), movement, other (pressing on chest) Associated Symptoms: + diaphoresis Review of Systems See HPI for pertinent positives & negatives. A total of 10 systems reviewed and were otherwise negative. Past Medical & Surgical Medical Problems: (1) Liver lesion (2) Pulmonary emboli (3) Ribs, multiple fractures (4) UMBILICAL HERNIA W OBSTR Family History No pertinent family history stated Social History Smoking Status: Never Smoker Alcohol Use: none Drug Use: none Marital Status: Housing Status: lives with family Occupation Status: employed Current/Historical Medications Scheduled Aspirin (Aspirin Ec), 81 MG PO DAILY Multivitamin (Multivitamin), 1 TAB PO DAILY Allergies Coded Allergies: No Known Allergies (Unverified , 11/22/16) Physical Exam Vital Signs Date Time Temp Pulse Resp B/P (MAP) Pulse Ox O2 Delivery O2 Flow Rate FiO2 02/16/17 10:40 93 Nasal Cannula 2.0 02/16/17 10:38 100 22 139/92 89 Room Air 02/16/17 09:51 96 22 131/94 92 Room Air 02/16/17 09:29 110 24 139/104 93 Room Air 02/16/17 09:22 105 02/16/17 09:15 93 Room Air 02/16/17 09:13 37.9 110 24 168/125 95 Room Air Physical Exam GENERAL: Patient is a healthy-appearing well-nourished male HEAD: Normocephalic atraumatic EYES: Ocular movements intact pupils equal and react to light OROPHARYNX mucous membranes are moist no exudates present no erythema or edema present NECK: Supple no nuchal rigidity CHEST: Tender in the 5th-6th rib area. LUNGS: Clear and equal to auscultation CARDIAC: Normal S1 and S2 ABDOMEN: Soft nontender no guarding BACK: No CVA tenderness EXTREMITIES: No pain upon palpation normal muscle strength in all groups no clubbing cyanosis or edema NEURO: Patient is following commands and answering questions appropriately. Alert and oriented x3 Cranial Nerves 2-12 grossly intact Medical Decision & Procedures ER Provider Diagnostic Interpretation: Radiology results as stated below per my review and radiologist interpretation: (CHEST FOR PE) ANGIO WITH CT DOSE: 400.84 mGy.cm HISTORY: 67 years-old Male presents with severe atypical chest pain with concern for pulmonary embolus. TECHNIQUE: Multiple CTA images of the chest were obtained after the intravenous administration of 88 mL Optiray 320. Coronal and sagittal MIPS were obtained from the axial data set and were submitted for review. A dose lowering technique was utilized adhering to the principles of ALARA. COMPARISON: CT chest and CT abdomen and pelvis 11/22/2016. FINDINGS: CTA: Heart is mildly enlarged without pericardial effusion. There is mild mixed plaquing of the thoracic aorta with the imaged great vessels patent. No aortic dissection or aneurysm identified. The distal segmental and subsegmental branches of the pulmonary arterial tree are not well seen secondary to contrast bolus timing and respiratory motion. There are multiple pulmonary emboli present bilaterally involving segmental and subsegmental branches of the upper and lower lobes. No definite evidence of right heart strain. CT CHEST: There is a small left and trace right pleural effusion. No large pulmonary infarction identified. There are patchy subsegmental consolidative and groundglass opacities of the left greater than right lung bases ingesting atelectasis. Groundglass and linear consolidative opacities of the medial left upper lobe and lingula suggest scarring. No lobar airspace consolidations. There is mild bronchial wall thickening of the lung bases suspicious for bronchitis. Scattered calcified granulomas. There are multiple ill-defined scattered low attenuating lesions throughout the liver measuring up to 12 mm which appear new from prior study 11/22/2016. Remaining imaged upper abdominal structures are unremarkable. Soft tissues are within normal limits. Multiple subacute to chronic bilateral rib fractures with healing callus identified. No acute fracture identified. IMPRESSION: 1. Multiple bilateral segmental and subsegmental pulmonary emboli involve the upper and lower lobes. No evidence of right heart strain or large pulmonary infarction. 2. Small left and trace right pleural effusions with subsegmental bibasilar groundglass and consolidative opacities suggesting atelectasis. 3. Multiple ill-defined low attenuating lesions throughout the right and left hepatic lobes measuring up to 1.2 cm are new from prior study 11/22/2016 concerning for possible metastatic disease. Further evaluation with CT abdomen and pelvis recommended. 4. Multiple subacute appearing bilateral rib fractures. The above report was generated using voice recognition software. It may contain grammatical, syntax or spelling errors. Electronically signed by: Juan Alberto Barrios M.D. 02/16/2017 10:17 AM Dictated Date/Time: 02/16/2017 10:07 AM Laboratory Results 02/16/17 09:20 Red Blood Count 5.00, Mean Corpuscular Volume 95.6, Mean Corpuscular Hemoglobin 34.4, Mean Corpuscular Hemoglobin Concent 36.0, Mean Platelet Volume 10.6, Neutrophils (%) (Auto) 75.7, Lymphocytes (%) (Auto) 13.7, Monocytes (%) (Auto) 10.0, Eosinophils (%) (Auto) 0.4, Basophils (%) (Auto) 0.0, Neutrophils # (Auto ) 6.47, Lymphocytes # (Auto) 1.17, Monocytes # (Auto) 0.85, Eosinophils # (Auto ) 0.03, Basophils # (Auto) 0.00 02/16/17 09:20 Test 02/16/17 09:20 02/16/17 09:23 02/16/17 09:27 02/16/17 10:34 White Blood Count 8.54 K/uL (4.8-10.8) Red Blood Count 5.00 M/uL (4.7-6.1) Hemoglobin 17.2 g/dL (14.0-18.0) Hematocrit 47.8 % (42-52) Mean Corpuscular Volume 95.6 fL (80-100) Mean Corpuscular Hemoglobin 34.4 pg (25-34) Mean Corpuscular Hemoglobin Concent 36.0 g/dl (32-36) Platelet Count 201 K/uL (130-400) Mean Platelet Volume 10.6 fL (7.4-10.4) Neutrophils (%) (Auto) 75.7 % Lymphocytes (%) (Auto) 13.7 % Monocytes (%) (Auto) 10.0 % Eosinophils (%) (Auto) 0.4 % Basophils (%) (Auto) 0.0 % Neutrophils # (Auto) 6.47 K/uL (1.4-6.5) Lymphocytes # (Auto) 1.17 K/uL (1.2-3.4) Monocytes # (Auto) 0.85 K/uL (0.11-0.59) Eosinophils # (Auto) 0.03 K/uL (0-0.5) Basophils # (Auto) 0.00 K/uL (0-0.2) RDW Standard Deviation 44.2 fL (36.4-46.3) RDW Coefficient of Variation 12.7 % (11.5-14.5) Immature Granulocyte % (Auto) 0.2 % Immature Granulocyte # (Auto) 0.02 K/uL (0.00-0.02) Prothrombin Time 10.9 SECONDS (9.0-12.0) Prothromb Time International Ratio 1.0 (0.9-1.1) Activated Partial Thromboplast Time 29.4 SECONDS (21.0-31.0) Partial Thromboplastin Ratio 1.1 Est Creatinine Clear Calc Drug Dose 78.4 ml/min Estimated GFR () 90.3 Estimated GFR (Non- 77.9 BUN/Creatinine Ratio 7.7 (10-20) Calcium Level 8.8 mg/dl (8.5-10.1) Total Bilirubin 1.3 mg/dl (0.2-1) Direct Bilirubin 0.4 mg/dl (0-0.2) Aspartate Amino Transf (AST/SGOT) 18 U/L (15-37) Alanine Aminotransferase (ALT/SGPT) 28 U/L (12-78) Alkaline Phosphatase 72 U/L (45-117) Total Creatine Kinase 20 U/L (39-308) Creatine Kinase MB < 0.5 ng/ml (0.5-3.6) Creatine Kinase MB Ratio (0-3.0) Troponin I < 0.015 ng/ml (0-0.045) Total Protein 8.3 gm/dl (6.4-8.2) Albumin 3.1 gm/dl (3.4-5.0) Lipase 89 U/L (73-393) Bedside Hemoglobin 17.0 g/dl (14.0-18.0) Bedside Hematocrit 50 % (42-52) Bedside Sodium 136 mEq/L (135-144) Bedside Potassium 4.1 mEq/L (3.3-5.0) Bedside Chloride 96 mEq/L (101-112) Bedside Total CO2 28 mEq/l (24-31) Anion Gap 17.0 mmol/L (16-25) Bedside Blood Urea Nitrogen 7 mg/dl (7-18) Bedside Creatinine 0.8 mg/dl (0.6-1.3) Bedside Glucose (other) 129 mg/dl (70-99) Bedside Ionized Calcium (Bettye) 1.00 mmol/l (1.12-1.32) Bedside Lactic Acid Venous 2.12 mmol/L (0.90-1.70) Labs reviewed by ED physician. Medications Administered Medications (Trade) Dose Ordered Sig/[place] Route Start Time Stop Time Status Last Admin Dose Admin Morphine Sulfate (MoRPHine SULFATE INJ) 8 mg NOW STAT IV 02/16/17 09:20 02/16/17 09:23 DC 02/16/17 09:28 8 MG Aspirin (Aspirin Chew) 324 mg NOW STAT PO 02/16/17 09:20 02/16/17 09:23 DC 02/16/17 09:28 324 MG Albuterol/ Ipratropium (Duoneb) 12 ml ONE ONCE INH 02/16/17 10:30 02/16/17 10:31 DC 02/16/17 10:46 12 ML Sodium Chloride 500 ml @ 999 mls/hr Q31M STAT IV 02/16/17 10:26 02/16/17 10:56 DC 02/16/17 10:37 999 MLS/HR Ondansetron HCl (Zofran Inj) 4 mg NOW STAT IV 02/16/17 10:26 02/16/17 10:28 DC 02/16/17 10:37 4 MG ECG Indication: chest pain Rate (beats per minute): 111 Rhythm: sinus tachycardia Findings: no acute ischemic change, no ectopy ED Course 0916: Past medical records reviewed. The patient was evaluated in room A2. A complete history and physical examination was performed. 0920: Ordered Aspirin 324 mg PO, Morphine Sulfate 8 mg IV 1028: I reevaluated the patient and he is resting comfortably. I discussed the exam findings with him and I discussed the treatment plan. He verbalized complete understanding and agreement. He is going to be evaluated for further treatment. 1032: I discussed the patients case with SATNAM Barboza. He is going to evaluate the patient for further treatment. Medical Decision Differential diagnosis: Etiologies such as cardiac ischemia, aortic dissection, pulmonary embolism, pneumonia, pneumothorax, musculoskeletal, infections, pericarditis, myocarditis , esophageal rupture, gastrointestinal, as well as others were entertained. This is a 59-year-old male who presents emergency department complaining of chest pain as well as hypoxia. The patient was given morphine for the pain. Repeat examination revealed improvement the patient's symptoms. I will note that the patient is hypoxic here in emergency department. He was sent for CT PE rule out. He is positive for pulmonary embolus. I did discuss the case with the hospitalist service. The patient's CAT scan is also concerning for multiple lesions on his liver therefore he was also sent for a CAT scan of the abdomen pelvis. Medication Reconcilliation Current Medication List: was personally reviewed by me Blood Pressure Screening Patient's blood pressure: Elevated blood pressure Blood pressure disposition: Referred to PCP Consults Time Called: 1027 Consulting Physician: SATNAM Barboza Returned Call: 1032 I discussed the patients case with SATNAM Barboza. He is going to evaluate the patient for further treatment. Impression Primary Impression: Hypoxia Additional Impression: Pulmonary emboli Scribe Attestation The scribe's documentation has been prepared under my direction and personally reviewed by me in its entirety. I confirm that the note above accurately reflects all work, treatment, procedures, and medical decision making performed by me. Departure Information Dispostion Being Evaluated By Hospitalist Referrals Elmer Farias M.D. (PCP) Problem Qualifiers Additional Impression: Pulmonary emboli Pulmonary embolism type: other Chronicity: unspecified Acute cor pulmonale presence: without acute cor pulmonale Qualified Codes: I26.99 - Other pulmonary embolism without acute cor pulmonale
[2017-02-16 09:33] LABS: COMPLETE YES; EOS % 0.4 %; HEMATOCRIT 47.8 % (42-52); IG% 0.2 %; LYMPH % 13.7 %; LYMPH ABS # 1.17 K/uL (1.2-3.4); MEAN CELL VOLUME 95.6 fL (80-100); MEAN CORPUSCULAR HEMOGLOBIN 34.4 pg (25-34); MEAN PLATELET VOLUME 10.6 fL (7.4-10.4); NEUT % 75.7 %; PLATELET COUNT 201 K/uL (130-400); WHITE BLOOD COUNT 8.54 K/uL (4.8-10.8)
[2017-02-16 09:36] LABS: ISTAT CREATININE 0.8 mg/dl (0.6-1.3)
[2017-02-16 09:51] LABS: ALT/SGPT 28 U/L (12-78); AST/SGOT 18 U/L (15-37); BLOOD UREA NITROGEN 8 mg/dl (7-18); BUN/CREATININE RATIO 7.7 (10-20); CALCIUM 8.8 mg/dl (8.5-10.1); CARBON DIOXIDE 30 mmol/L (21-32); CHLORIDE 98 mmol/L (98-107); CREATININE 0.99 mg/dl (0.60-1.40); GLUCOSE 125 mg/dl (70-99); POTASSIUM 4.1 mmol/L (3.5-5.1); SODIUM 134 mmol/L (136-145)
[2017-02-16 09:56] LABS: ALKALINE PHOSPHATASE 72 U/L (45-117)
--- NOTE | 2017-02-16 10:19 | DIAGNOSTIC IMAGING REPORT ---
(CHEST FOR PE) ANGIO WITH CT DOSE: 400.84 mGy.cm HISTORY: 67 years-old Male presents with severe atypical chest pain with concern for pulmonary embolus. TECHNIQUE: Multiple CTA images of the chest were obtained after the intravenous administration of 88 mL Optiray 320. Coronal and sagittal MIPS were obtained from the axial data set and were submitted for review. A dose lowering technique was utilized adhering to the principles of ALARA. COMPARISON: CT chest and CT abdomen and pelvis 11/22/2016. FINDINGS: CTA: Heart is mildly enlarged without pericardial effusion. There is mild mixed plaquing of the thoracic aorta with the imaged great vessels patent. No aortic dissection or aneurysm identified. The distal segmental and subsegmental branches of the pulmonary arterial tree are not well seen secondary to contrast bolus timing and respiratory motion. There are multiple pulmonary emboli present bilaterally involving segmental and subsegmental branches of the upper and lower lobes. No definite evidence of right heart strain. CT CHEST: There is a small left and trace right pleural effusion. No large pulmonary infarction identified. There are patchy subsegmental consolidative and groundglass opacities of the left greater than right lung bases ingesting atelectasis. Groundglass and linear consolidative opacities of the medial left upper lobe and lingula suggest scarring. No lobar airspace consolidations. There is mild bronchial wall thickening of the lung bases suspicious for bronchitis. Scattered calcified granulomas. There are multiple ill-defined scattered low attenuating lesions throughout the liver measuring up to 12 mm which appear new from prior study 11/22/2016. Remaining imaged upper abdominal structures are unremarkable. Soft tissues are within normal limits. Multiple subacute to chronic bilateral rib fractures with healing callus identified. No acute fracture identified. IMPRESSION: 1. Multiple bilateral segmental and subsegmental pulmonary emboli involve the upper and lower lobes. No evidence of right heart strain or large pulmonary infarction. 2. Small left and trace right pleural effusions with subsegmental bibasilar groundglass and consolidative opacities suggesting atelectasis. 3. Multiple ill-defined low attenuating lesions throughout the right and left hepatic lobes measuring up to 1.2 cm are new from prior study 11/22/2016 concerning for possible metastatic disease. Further evaluation with CT abdomen and pelvis recommended. 4. Multiple subacute appearing bilateral rib fractures. The above report was generated using voice recognition software. It may contain grammatical, syntax or spelling errors. Electronically signed by: Juan Alberto Barrios M.D. 02/16/2017 10:17 AM Dictated Date/Time: 02/16/2017 10:07 AM
[2017-02-16] MEDS ORDERED: SODIUM CHLORIDE 0.9% 500ML 500 ML IV STA (10:26)
[2017-02-16] MEDS ORDERED: ONDANSETRON INJ 2 MG/ML 2 ML VIAL IV STA (10:26)
[2017-02-16] MEDS ORDERED: ALBUT/IPRATROP 3MG/0.5MG NEB 3 ML VIAL INH ONE (10:30)
[2017-02-16] MEDS ORDERED: POLYETHYLENE (MIRALAX) 17 GM PACK PO PRN (10:45)
[2017-02-16] MEDS ORDERED: ALUMINUM/MAGNESIUM/SIMETH (MAALOX MAX) 30 ML UDC PO PRN (10:45)
[2017-02-16] MEDS ORDERED: MoRPHine SULFATE 2 MG/ML CARP IV PRN (10:45)
[2017-02-16] MEDS ORDERED: ONDANSETRON INJ 2 MG/ML 2 ML VIAL IV PRN (10:45)
[2017-02-16] MEDS ORDERED: ZOLPIDEM TARTRATE 5 MG TAB PO PRN (10:45)
[2017-02-16] MEDS ORDERED: ACETAMINOPHEN 325 MG TAB PO PRN (10:45)
[2017-02-16] MEDS ORDERED: MAGNESIUM HYDROXIDE SUSP 30 ML UDC PO PRN (10:45)
[2017-02-16 10:51] LABS: PARTIAL THROMBOPLASTIN RATIO 1.1; PROTHROMBIN TIME (PATIENT) 10.9 SECONDS (9.0-12.0)
--- NOTE | 2017-02-16 10:51 | History and Physical ---
History & Physical Date & Time of Service: Feb 16, 2017 at 10:37 Chief Complaint: Chest Pains Primary Care Physician: Elmer Farias M.D. History of Present Illness Source: patient 67 y/o M denies any active medical issues excepting recent multiple rib fractures and excessive alcohol use. Presents with acute onset CP, SOB and diaphoresis. Pain is largely pleuritic, nonradiating - denies N/V. Does not have a history of cardiovascular disease. A CTA in the ER revealed B/L segmental pulmonary emboli. Unfortunately there is an incidental finding of hepatic lesions as well which may be consistent with metastatic disease. 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 and drinks approximately 10 Vodka-based drinks daily Smoking Status: Never Smoker Drug Use: none Marital Status: Occupational Status: employed Immunizations History of Influenza Vaccine: No History of Tetanus Vaccine?: Yes History of Pneumococcal: No History of Hepatitis B Vaccine: No Multi-Drug Resistant Organisms History of MDRO: No Allergies Coded Allergies: No Known Allergies (Unverified , 11/22/16) Home Medications Scheduled Aspirin (Aspirin Ec), 81 MG PO DAILY Multivitamin (Multivitamin), 1 TAB PO DAILY Review of Systems Constitutional: + sweats, No fever, No chills Eyes: No worsening of vision, No eye pain ENT: No hearing loss, No unusual epistaxis, No nasal symptoms Respiratory: + shortness of breath, + dyspnea on exertion, + dyspnea at rest, No cough, No sputum, No wheezing Cardiovascular: + chest pain, No orthopnea, No PND Abdomen: No pain, No nausea, No vomiting Musculoskeletal: No joint pain Genitourinary - Male: No hematuria, No dysuria, No urinary frequency, No urinary urgency Neurologic: No memory loss, No paralysis, No weakness Psychiatric: No depression symptoms Endocrine: No fatigue Hematologic / Lymphatic: No abnormal bleeding/bruising Integumentary: No rash Allergic / Immunologic: No environmental allergies Physical Exam Vital Signs Date Time Temp Pulse Resp B/P (MAP) Pulse Ox O2 Delivery O2 Flow Rate FiO2 02/16/17 09:51 96 22 131/94 92 Room Air 02/16/17 09:29 110 24 139/104 93 Room Air 02/16/17 09:22 105 02/16/17 09:15 93 Room Air 02/16/17 09:13 37.9 110 24 168/125 95 Room Air General Appearance: WD/WN, no apparent distress Head: normocephalic Eyes: normal inspection ENT: normal ENT inspection, pharynx normal Neck: supple, no JVD Respiratory/Chest: chest non-tender, lungs clear, normal breath sounds Cardiovascular: no edema, no gallop, no JVD, no murmur, normal peripheral pulses, + tachycardia Abdomen/GI: normal bowel sounds, non tender, soft Extremities/Musculoskelatal: normal inspection, no calf tenderness, normal capillary refill, no pedal edema, normal range of motion 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, no motor/sensory deficits, alert, oriented x 3 Skin: normal color, warm/dry, no rash Diagnostics Laboratory Results Results Past 24 Hours Test 02/16/17 09:20 02/16/17 09:23 02/16/17 09:27 02/16/17 10:34 Range/Units White Blood Count 8.54 4.8-10.8 K/uL Red Blood Count 5.00 4.7-6.1 M/uL Hemoglobin 17.2 14.0-18.0 g/dL Hematocrit 47.8 42-52 % Mean Corpuscular Volume 95.6 80-100 fL Mean Corpuscular Hemoglobin 34.4 25-34 pg Mean Corpuscular Hemoglobin Concent 36.0 32-36 g/dl Platelet Count 201 130-400 K/uL Mean Platelet Volume 10.6 7.4-10.4 fL Neutrophils (%) (Auto) 75.7 % Lymphocytes (%) (Auto) 13.7 % Monocytes (%) (Auto) 10.0 % Eosinophils (%) (Auto) 0.4 % Basophils (%) (Auto) 0.0 % Neutrophils # (Auto) 6.47 1.4-6.5 K/uL Lymphocytes # (Auto) 1.17 1.2-3.4 K/uL Monocytes # (Auto) 0.85 0.11-0.59 K/uL Eosinophils # (Auto) 0.03 0-0.5 K/uL Basophils # (Auto) 0.00 0-0.2 K/uL RDW Standard Deviation 44.2 36.4-46.3 fL RDW Coefficient of Variation 12.7 11.5-14.5 % Immature Granulocyte % (Auto) 0.2 % Immature Granulocyte # (Auto) 0.02 0.00-0.02 K/uL Sodium Level 134 136-145 mmol/L Potassium Level 4.1 3.5-5.1 mmol/L Chloride Level 98 98-107 mmol/L Carbon Dioxide Level 30 21-32 mmol/L Anion Gap 6.0 17.0 16-25 mmol/L Blood Urea Nitrogen 8 7-18 mg/dl Creatinine 0.99 0.60-1.40 mg/dl Est Creatinine Clear Calc Drug Dose 78.4 ml/min Estimated GFR () 90.3 Estimated GFR (Non- 77.9 BUN/Creatinine Ratio 7.7 10-20 Random Glucose 125 70-99 mg/dl Calcium Level 8.8 8.5-10.1 mg/dl Total Bilirubin 1.3 0.2-1 mg/dl Direct Bilirubin 0.4 0-0.2 mg/dl Aspartate Amino Transf (AST/SGOT) 18 15-37 U/L Alanine Aminotransferase (ALT/SGPT) 28 12-78 U/L Alkaline Phosphatase 72 45-117 U/L Total Creatine Kinase 20 39-308 U/L Creatine Kinase MB < 0.5 0.5-3.6 ng/ml Creatine Kinase MB Ratio 0-3.0 Troponin I < 0.015 0-0.045 ng/ml Total Protein 8.3 6.4-8.2 gm/dl Albumin 3.1 3.4-5.0 gm/dl Lipase 89 73-393 U/L Bedside Hemoglobin 17.0 14.0-18.0 g/dl Bedside Hematocrit 50 42-52 % Bedside Sodium 136 135-144 mEq/L Bedside Potassium 4.1 3.3-5.0 mEq/L Bedside Chloride 96 101-112 mEq/L Bedside Total CO2 28 24-31 mEq/l Bedside Blood Urea Nitrogen 7 7-18 mg/dl Bedside Creatinine 0.8 0.6-1.3 mg/dl Bedside Glucose (other) 129 70-99 mg/dl Bedside Ionized Calcium (Bettye) 1.00 1.12-1.32 mmol/l Bedside Lactic Acid Venous 2.12 0.90-1.70 mmol/L Microbiology Results 02/16/17 Blood Culture, Ordered Pending 02/16/17 Blood Culture, Received Pending Diagnostic Radiology CTA: 1.Multiple bilateral segmental and subsegmental pulmonary emboli involve the upper and lower lobes. No evidence of right heart strain or large pulmonary infarction. 2. Small left and trace right pleural effusions with subsegmental bibasilar groundglass and consolidative opacities suggesting atelectasis. 3. Multiple ill-defined low attenuating lesions throughout the right and left hepatic lobes measuring up to 1.2 cm are new from prior study 11/22/2016 concerning for possible metastatic disease. Further evaluation with CT abdomen and pelvis recommended. 4. Multiple subacute appearing bilateral rib fractures. EKG Sinus tach Impression Assessment and Plan 67 y/o M denies any active medical issues excepting recent multiple rib fractures and excessive alcohol use. Presents with acute onset CP, SOB and diaphoresis. Pain is largely pleuritic, nonradiating - denies N/V. Does not have a history of cardiovascular disease. A CTA in the ER revealed B/L segmental pulmonary emboli. Unfortunately there is an incidental finding of hepatic lesions as well which may be consistent with metastatic disease. 1) B/L PEs - placed on IV Heparin, 02 as needed. LE ultrasound pending. 2) Liver lesions - CT abd/pelvis ordered - will review result with pt. 3) ETOH abuse - placed on scheduled Librium, Ativan PRN, daily banana bag. Full code - full dose Heparin Total time for this admit including review of labs, meds, imaging, EKG - discussion with pt and ER attending - 40 min Level of Care Telemetry Resuscitation Status FULL RESUSCITATION VTE Prophylaxis Given or contraindicated: Other Anticoagulation
[2017-02-16] MEDS ORDERED: LORAZEPAM 2 MG/ML 1 ML VIAL IV PRN ×3 (11:30→19:15)
--- NOTE | 2017-02-16 11:59 | DIAGNOSTIC IMAGING REPORT ---
ABDOMEN AND PELVIS CT WITH IV CONTRAST CT DOSE: 537.33 mGy.cm HISTORY: Abnormal chest CT. Pt c/o liver mets TECHNIQUE: Multiaxial CT images of the abdomen and pelvis were performed following the use of intravenous contrast. A dose lowering technique was utilized adhering to the principles of ALARA. COMPARISON STUDY: Abdomen and pelvis CT 11/22/2016. FINDINGS: Bilateral pulmonary emboli are better appreciated on the same day chest CT. There is confirmation of the multiple small subtle hypodense lesions seen scattered throughout the liver. These appear to be new from the prior studies. Majority of the lesions are subcentimeter in size. Dominant lesion within the right hepatic lobe measures 1.2 cm. The gallbladder, spleen, adrenal glands, pancreas, and right kidney are unremarkable. A 9 mm hypodense lesion within the left kidney is too small to characterize but favors a cyst. No hydronephrosis. No retroperitoneal lymphadenopathy. Contrast within the bladder. No definite bladder wall thickening. Trace left pleural effusion. Multiple subacute left posterior rib fractures. Healing right posterior 10th rib fracture. No suspicious lytic or blastic osseous lesions. Colonic diverticulosis. No bowel wall thickening or obstruction. No retroperitoneal lymphadenopathy. The IVC appears patent. The mesenteric vessels and portal vein appear patent. IMPRESSION: 1. Confirmation of the multiple small subtle hypodense lesions seen scattered throughout the liver with the largest measuring 1.2 cm. These are incompletely characterized on this single phase study. These could represent microabscesses or possible metastatic disease given the multiple lesions. Correlation with LFTs and one month abdominal CT/MRI follow-up is recommended. 2. Bilateral pulmonary emboli are better appreciated on the same day chest CT. 3. Trace left pleural effusion. 4. Colonic diverticulosis. 5. No bowel wall thickening or obstruction. Electronically signed by: Polo Ulloa M.D. 02/16/2017 11:58 AM Dictated Date/Time: 02/16/2017 11:13 AM
--- NOTE | 2017-02-16 12:12 | DIAGNOSTIC IMAGING REPORT ---
BILATERAL LOWER EXTREMITY VENOUS DOPPLER HISTORY: Pulmonary embolus. Assess for DVT. COMPARISON STUDY: None. FINDINGS: There is normal compressibility, flow, and augmentation within the bilateral lower extremity deep venous systems. IMPRESSION: No DVT within the right or left lower extremity. Electronically signed by: Polo Ulloa M.D. 02/16/2017 12:11 PM Dictated Date/Time: 02/16/2017 12:11 PM
[2017-02-16] MEDS ORDERED: HEPARIN 25000 UNIT/500 ML D5W ONE (12:20)
[2017-02-16] MEDS ORDERED: MULTI-VITAMIN INFUSION INJ 10 ML, THIAMINE HCL INJ 100 MG, FoLIC ACID INJ 1 MG in SODIU... IV ONE (13:30)
[2017-02-16] MEDS: CHLORDIAZEPOXIDE 10 MG CAP PO SCH ×2 (14:27→20:52)
--- NOTE | 2017-02-16 15:48 | Oncology Consultation ---
Oncology/Heme Consultation Date of Consultation: Feb 16, 2017. Attending Physician: Jose Daniels M.D. Reason for Consultation: Pulmonary emboli New hepatic defects seen on CT scan History of Present Illness Mr. Sparks is a 67-year-old gentleman with virtually no past medical history. He states that a couple of days ago he developed what sounded like rather severe and abrupt chest pain. He stated he laid down and when he woke up the pain was somewhat better however he was short of breath. He presented to the emergency room and was found to have multiple pulmonary emboli. CT scans also demonstrated very small hepatic defects that are new when compared to a CT done in October. In October of this year the patient fell at home down the steps and had several CTs done of his vertebrae as well as his abdomen. CT scan in October was really unremarkable. He does admit to about a 20 pound weight loss in the past few months. He states he just has no appetite. He denies any recent trauma. He has been very active. He does admit to a considerable amount of alcohol ingestion daily. He denies any long plane flights or being in any stationary position of any long duration. There is no family history of blood clots that he can recall. Past Medical/Surgical History Medical Problems: (1) Abnormal chest xray Status: Acute (2) Fall down stairs Status: Acute (3) Hypoxia Status: Acute (4) Lower back pain Status: Acute Family History No history of blood clots in the family. Social History Negative for smoking. He states he drinks a fair amount of alcohol daily. Smoking Status: Former Smoker Drug Use: none Marital Status: Housing Status: lives with family Occupation Status: employed Allergies Coded Allergies: No Known Allergies (Unverified , 11/22/16) Home Medications Scheduled Aspirin (Aspirin Ec), 81 MG PO DAILY Multivitamin (Multivitamin), 1 TAB PO DAILY Current Inpatient Medications Current Inpatient Medications Medications (Trade) Dose Ordered Sig/[place] Route Start Time Stop Time Status Last Admin Dose Admin Heparin Sodium/ Dextrose 1 ea Q30M N/A 02/16/17 10:50 03/18/17 10:49 02/16/17 11:20 1 EA Acetaminophen (Tylenol Tab) 650 mg Q4H PRN PO 02/16/17 10:45 03/18/17 10:44 Al Hydrox/Mg Hydrox/Simethicone (Maalox Max Susp) 15 ml Q4H PRN PO 02/16/17 10:45 03/18/17 10:44 Magnesium Hydroxide (Milk Of Magnesia Susp) 30 ml Q12H PRN PO 02/16/17 10:45 03/18/17 10:44 Zolpidem Tartrate (Ambien Tab) 5 mg HSZ PRN PO 02/16/17 10:45 03/18/17 10:44 Ondansetron HCl (Zofran Inj) 4 mg Q6H PRN IV 02/16/17 10:45 03/18/17 10:44 Morphine Sulfate (MoRPHine SULFATE INJ) 2 mg Q30M PRN IV 02/16/17 10:45 03/02/17 10:44 Polyethylene (Miralax Powder Packet) 17 gm DAILY PRN PO 02/16/17 10:45 03/18/17 10:44 Chlordiazepoxide (Librium Cap) 10 mg TID PO 02/16/17 14:00 03/18/17 13:59 02/16/17 14:27 10 MG Lorazepam (Ativan Inj) 1 mg Q4H PRN IV 02/16/17 11:30 03/18/17 11:29 Lorazepam (Ativan Inj) 2 mg Q4H PRN IV 02/16/17 11:30 03/18/17 11:29 Multivitamins 10 ml/Thiamine HCl 100 mg/Folic Acid 1 mg/Sodium Chloride 1,011.2 ml @ 200 mls/ hr DAILY IV 02/17/17 09:00 03/19/17 08:59 Multivitamins 10 ml/Thiamine HCl 100 mg/Folic Acid 1 mg/Sodium Chloride 1,011.2 ml @ 200 mls/ hr Q5H4M ONCE IV 02/16/17 13:30 02/16/17 18:33 02/16/17 14:27 200 MLS/HR Heparin Sodium/ Dextrose 500 ml @ 29 mls/hr [id number] PRN IV 02/16/17 13:45 03/18/17 13:44 Review of Systems Constitutional: Negative for night sweats, or fever. Again he admits to about a 20 pound weight loss over the past few months. Did have one evening of night sweats on the day or night of his recent abrupt chest pain episode as described in the HPI Eyes: Negative for event change of vision ENT: Negative for epistaxis, nasal discharge, sore throat, or deafness Cardiovascular: Negative for palpitations, dizziness, diaphoresis Respiratory: Negative for hemoptysis, or purulent cough Gastrointestinal: Negative for diarrhea, hematemesis, melena, nausea, vomiting , or dyspepsia Integumentary (skin): Negative for rash or jaundice discoloration Genitourinary: Negative for urinary frequency, hematuria, or dysuria Neurological: Negative for weakness, seizure activity, headache, or dizziness Lymphatic/Hematologic: Negative for petechiae, bleeding or new adenopathy Musculoskeletal: Negative for new joint or back pain Allergic/Immunologic: Negative for unusual rash or pruritis. Physical Exam Date Time Temp Pulse Resp B/P (MAP) Pulse Ox O2 Delivery O2 Flow Rate FiO2 02/16/17 15:11 37.7 115 20 127/69 (88) 94 Nasal Cannula 2.0 02/16/17 13:08 37.2 124 20 124/89 (101) 95 Room Air 02/16/17 12:41 129 20 121/81 93 02/16/17 12:25 125 20 131/89 94 Room Air 02/16/17 11:08 104 22 162/101 96 Nebulizer 02/16/17 10:46 93 20 98 Nasal Cannula 2.0 02/16/17 10:45 96 Nasal Cannula 2.0 02/16/17 10:40 93 Nasal Cannula 2.0 02/16/17 10:38 100 22 139/92 89 Room Air 02/16/17 09:51 96 22 131/94 92 Room Air 02/16/17 09:29 110 24 139/104 93 Room Air 02/16/17 09:22 105 02/16/17 09:15 93 Room Air 02/16/17 09:13 37.9 110 24 168/125 95 Room Air Constitutional: vitals are stable. Mildly plethoric delightful gentleman. Eyes: Eyes are ОЛЕГ EOMI without conjuctival erythema or icterus. ENT: External examination was negative for masses. Neck: Negative for masses or palpable thyromegaly Respiratory: Lung sounds were generally clear bilaterally Cardiovascular: Heart was RRR without significant murmur, gallops aoe rubs Gastrointestinal: No palpable hepatic or splenomegaly. The abdomen was soft with normal bowel sounds. Lymphatic system: there was no palpable peripheral lymphadenopathy Musculoskeletal System: The musculoskeletal system seemed concordant with age. Skin: The skin was negative for jaundice. Neurologic exam: The exam was negative for any focal findings. Deep tendon reflexes were equal and symmetrical. Psychiatric exam: Was essentially negative with normal mood and effect. Extremities: Negative for significant edema or erythema. I should note that he has denied any leg discomfort. Laboratory Results Last 24 Hours Test 02/16/17 09:20 02/16/17 09:23 02/16/17 09:27 02/16/17 10:34 White Blood Count 8.54 K/uL Red Blood Count 5.00 M/uL Hemoglobin 17.2 g/dL Hematocrit 47.8 % Mean Corpuscular Volume 95.6 fL Mean Corpuscular Hemoglobin 34.4 pg Mean Corpuscular Hemoglobin Concent 36.0 g/dl Platelet Count 201 K/uL Mean Platelet Volume 10.6 fL Neutrophils (%) (Auto) 75.7 % Lymphocytes (%) (Auto) 13.7 % Monocytes (%) (Auto) 10.0 % Eosinophils (%) (Auto) 0.4 % Basophils (%) (Auto) 0.0 % Neutrophils # (Auto) 6.47 K/uL Lymphocytes # (Auto) 1.17 K/uL Monocytes # (Auto) 0.85 K/uL Eosinophils # (Auto) 0.03 K/uL Basophils # (Auto) 0.00 K/uL RDW Standard Deviation 44.2 fL RDW Coefficient of Variation 12.7 % Immature Granulocyte % (Auto) 0.2 % Immature Granulocyte # (Auto) 0.02 K/uL Prothrombin Time 10.9 SECONDS Prothromb Time International Ratio 1.0 Activated Partial Thromboplast Time 29.4 SECONDS Partial Thromboplastin Ratio 1.1 Sodium Level 134 mmol/L Potassium Level 4.1 mmol/L Chloride Level 98 mmol/L Carbon Dioxide Level 30 mmol/L Anion Gap 6.0 mmol/L 17.0 mmol/L Blood Urea Nitrogen 8 mg/dl Creatinine 0.99 mg/dl Est Creatinine Clear Calc Drug Dose 78.4 ml/min Estimated GFR () 90.3 Estimated GFR (Non- 77.9 BUN/Creatinine Ratio 7.7 Random Glucose 125 mg/dl Calcium Level 8.8 mg/dl Total Bilirubin 1.3 mg/dl Direct Bilirubin 0.4 mg/dl Aspartate Amino Transf (AST/SGOT) 18 U/L Alanine Aminotransferase (ALT/SGPT) 28 U/L Alkaline Phosphatase 72 U/L Total Creatine Kinase 20 U/L Creatine Kinase MB < 0.5 ng/ml Creatine Kinase MB Ratio Troponin I < 0.015 ng/ml Total Protein 8.3 gm/dl Albumin 3.1 gm/dl Lipase 89 U/L Bedside Hemoglobin 17.0 g/dl Bedside Hematocrit 50 % Bedside Sodium 136 mEq/L Bedside Potassium 4.1 mEq/L Bedside Chloride 96 mEq/L Bedside Total CO2 28 mEq/l Bedside Blood Urea Nitrogen 7 mg/dl Bedside Creatinine 0.8 mg/dl Bedside Glucose (other) 129 mg/dl Bedside Ionized Calcium (Bettye) 1.00 mmol/l Bedside Lactic Acid Venous 2.12 mmol/L Test 02/16/17 14:32 Assessment & Plan Pulmonary emboli -cause unclear. These new hepatic defects are worrisome. They are very small and I do not believe are easily approachable for a percutaneous biopsy by radiology. His chemistries are unremarkable as is his physical exam. He has never had a colonoscopy. He describes small caliber stools but he also states at the same time that there has really not been any trouble with moving his bowels. I suspect it will come to an eventual biopsy of one of these liver lesions and it will probably have to be a laparoscopic procedure. I would consult surgery in anticipation of doing an eventual laparoscopic biopsy whether it be done during this hospitalization or in a few weeks once the pulmonary emboli are treated for 3-4 weeks and perhaps a repeat CT scan is done. Probably safer in light of recent pulmonary emboli to delay at least 3-4 weeks. Finally would approach his PE's with LMWH (Lovenox) - BID 1 mg/kg/day. Recheck CBC q o day while on heparin.
[2017-02-16 18:37] LABS: PARTIAL THROMBOPLASTIN RATIO 1.7
[2017-02-16] MEDS ORDERED: NURSING VERBAL MED ORDER ONE (19:15)
[2017-02-16] MEDS ORDERED: HEPARIN IV BOLUS 3,000 UNIT in SYRINGE 0 ML IV ONE (19:30)
[2017-02-16] MEDS: ACETAMINOPHEN IV 1,000 MG in EMPTY BAG 0 ML IV SCH (19:33)
[2017-02-16] MEDS ORDERED: CLONIDINE HCL 0.1 MG TAB PO ONE (19:45)
[2017-02-17] VITALS (10 sets, daily range): BP systolic 101–132; BP diastolic 59–86; PULSE 67–116; TEMP 36.5–38.1; O2SAT 92–96
[2017-02-17 01:11] LABS: PARTIAL THROMBOPLASTIN RATIO 6.2
[2017-02-17 02:46] LABS: HEMATOCRIT 40.2 % (42-52); MEAN CELL VOLUME 96.6 fL (80-100); MEAN CORPUSCULAR HEMOGLOBIN 34.4 pg (25-34); MEAN CORPUSCULAR HGB CONC 35.6 g/dl (32-36); MEAN PLATELET VOLUME 10.4 fL (7.4-10.4); PLATELET COUNT 166 K/uL (130-400); RED BLOOD COUNT 4.16 M/uL (4.7-6.1); WHITE BLOOD COUNT 4.77 K/uL (4.8-10.8)
[2017-02-17 02:51] LABS: BUN/CREATININE RATIO 9.7 (10-20); CREATININE 0.8 mg/dl (0.60-1.40); POTASSIUM 3.7 mmol/L (3.5-5.1)
[2017-02-17 02:54] LABS: PARTIAL THROMBOPLASTIN RATIO 3.6
[2017-02-17] MEDS: HEPARIN 25,000 UNIT/500ML D5W 500 ML IV PRN ×2 (03:17→08:18)
[2017-02-17] MEDS: ACETAMINOPHEN IV 1,000 MG in EMPTY BAG 0 ML IV SCH ×3 (04:41→19:47)
[2017-02-17] MEDS: CHLORDIAZEPOXIDE 10 MG CAP PO SCH ×3 (08:07→21:19)
[2017-02-17] MEDS: MULTI-VITAMIN INFUSION INJ 10 ML, THIAMINE HCL INJ 100 MG, FoLIC ACID INJ 1 MG in SODIU... IV SCH (08:07)
--- NOTE | 2017-02-17 08:46 | Clinical Documentation Query ---
JEANINE Little : CLINICAL DOCUMENTATION QUERY Patient is a 67 year old male admitted for evaluation of CP, SOB, and diaphoresis, subsequently determined to have acute bilateral pulmonary emboli. Multiple hepatic lesions noted on radiologic scans. Oncology consulted with reason being "may be consistent with mets". General surgery consulted for possible liver biopsy. In ther interim, consider explicit documentation of the possible disease processes you are actively investigating/treating. Thank you. In your clinical opinion is this patient being managed for: ( X ) (Possible/Suspected) Secondary malignant neoplasm of liver due to unknown primary ( ) Not Agree ( ) Other explanation of clinical findings (Please Explain) ( ) Unable to determine (Please Define) ( ) Need to Discuss The medical record reflects the following clinical findings, treatment, and risk factors. Clinical Indicators: As above, acute bilateral PE Treatment:Oncology consulted with reason being "may be consistent with mets". General surgery consulted for possible liver biopsy Risk Factors: Age, alcohol use Please clarify and document your clinical opinion in the progress notes and discharge summary. Terms such as "probable", "suspected", "likely", "questionable", "possible", or "still to be ruled out" are acceptable. IF IN AGREEMENT, YOU MUST DOCUMENT ABOVE DIAGNOSTIC STATEMENT IN DAILY PROGRESS NOTES AND DISCHARGE SUMMARY. This document is not part of the patient's record. Thank You, Juancarlos Clark, MARKO [phone]
[2017-02-17 09:16] LABS: PARTIAL THROMBOPLASTIN RATIO 3.3
--- NOTE | 2017-02-17 10:55 | Hematology/Oncology Prog Note ---
Hematology/Onc Progress Note Date of Service Feb 17, 2017. Diagnoses Pulmonary emboli New hepatic defects Medications Medications Administered Medications (Trade) Dose Ordered Sig/[place] Route Start Time Stop Time Status Last Admin Dose Admin Morphine Sulfate (MoRPHine SULFATE INJ) 8 mg NOW STAT IV 02/16/17 09:20 02/16/17 09:23 DC 02/16/17 09:28 8 MG Aspirin (Aspirin Chew) 324 mg NOW STAT PO 02/16/17 09:20 02/16/17 09:23 DC 02/16/17 09:28 324 MG Albuterol/ Ipratropium (Duoneb) 12 ml ONE ONCE INH 02/16/17 10:30 02/16/17 10:31 DC 02/16/17 10:46 12 ML Sodium Chloride 500 ml @ 999 mls/hr Q31M STAT IV 02/16/17 10:26 02/16/17 10:56 DC 02/16/17 10:37 999 MLS/HR Ondansetron HCl (Zofran Inj) 4 mg NOW STAT IV 02/16/17 10:26 02/16/17 10:28 DC 02/16/17 10:37 4 MG Heparin Sodium/ Dextrose 1 ea Q30M N/A 02/16/17 10:50 02/16/17 17:10 DC 02/16/17 11:20 1 EA Acetaminophen (Tylenol Tab) 650 mg Q4H PRN PO 02/16/17 10:45 03/18/17 10:44 02/16/17 17:19 650 MG Chlordiazepoxide (Librium Cap) 10 mg TID PO 02/16/17 14:00 03/18/17 13:59 02/17/17 08:07 10 MG Lorazepam (Ativan Inj) 1 mg Q4H PRN IV 02/16/17 11:30 03/18/17 11:29 02/16/17 17:19 1 MG Multivitamins 10 ml/Thiamine HCl 100 mg/Folic Acid 1 mg/Sodium Chloride 1,011.2 ml @ 200 mls/ hr DAILY IV 02/17/17 09:00 03/19/17 08:59 02/17/17 08:07 200 MLS/HR Multivitamins 10 ml/Thiamine HCl 100 mg/Folic Acid 1 mg/Sodium Chloride 1,011.2 ml @ 200 mls/ hr Q5H4M ONCE IV 02/16/17 13:30 02/16/17 18:33 DC 02/16/17 14:27 200 MLS/HR Heparin Sodium/ Dextrose (Heparin 25,000 Unit/500ml D5W) 25,000 unit STK-MED ONCE .ROUTE 02/16/17 12:20 02/16/17 12:21 DC 02/16/17 12:24 25,000 UNIT Heparin Sodium/ Dextrose 500 ml @ 24 mls/hr [id number] PRN IV 02/16/17 13:45 03/18/17 13:44 02/17/17 08:18 27 MLS/HR Acetaminophen 1000 mg/Empty Bag 100 ml @ 400 mls/hr Q8H IV 02/16/17 20:00 03/18/17 19:59 02/17/17 04:41 400 MLS/HR Heparin Sodium (Porcine) 3000 unit/Syringe 3 ml @ 10 mls/min NOW ONCE IV 02/16/17 19:30 02/16/17 19:31 DC 02/16/17 19:29 10 MLS/MIN Clonidine HCl (Catapres Tab) 0.1 mg ONE ONCE PO 02/16/17 19:45 02/16/17 19:46 DC 02/16/17 19:49 0.1 MG Subjective Seems to be doing well. Still has some pleuritic pain that could be called pleuritic. Otherwise he denies hemoptysis or worsening shortness of breath or abdominal pain. Review of Systems: Constitutional: Negative for night sweats, or fever Eyes: Negative for event change of vision ENT: Negative for epistaxis, nasal discharge, sore throat, or deafness Cardiovascular: Negative for chest pain, palpitations, dizziness, diaphoresis Respiratory: Negative for worsening shortness of breath,hemoptysis, or purulent cough Gastrointestinal: Negative for diarrhea, hematemesis, melena, nausea, vomiting , or dyspepsia Integumentary (skin): Negative for rash or jaundice discoloration Genitourinary: Negative for urinary frequency, hematuria, or dysuria Neurological: Negative for weakness, seizure activity, headache, or dizziness Lymphatic/Hematologic: Negative for petechiae, bleeding or new adenopathy Musculoskeletal: Negative for new joint or back pain Allergic/Immunologic: Negative for unusual rash or pruritis. Vital Signs Vital Signs Past 12 Hours Date Time Temp Pulse Resp B/P (MAP) Pulse Ox O2 Delivery O2 Flow Rate FiO2 02/17/17 08:00 94 Room Air 02/17/17 07:41 36.7 78 19 101/79 (86) 96 Room Air 02/17/17 04:16 36.7 67 18 109/60 (76) 96 Nasal Cannula 1.0 02/17/17 04:00 Nasal Cannula 2.0 02/16/17 23:59 Nasal Cannula 2.0 02/16/17 23:47 36.4 73 16 91/57 (68) 96 Nasal Cannula 1.0 Physical Exam Constitutional: vitals are stable. Eyes: Eyes are ОЛЕГ EOMI without conjuctival erythema or icterus. ENT: External examination was negative for masses. Neck: Negative for masses or palpable thyromegaly Respiratory: Lung sounds were generally clear bilaterally Cardiovascular: Heart was RRR without significant murmur, gallops aoe rubs Gastrointestinal: No palpable hepatic or splenomegaly. The abdomen was soft with normal bowel sounds. Lymphatic system: there was no palpable peripheral lymphadenopathy Musculoskeletal System: The musculoskeletal system seemed concordant with age. Skin: The skin was negative for jaundice. Neurologic exam: The exam was negative for any focal findings. Deep tendon reflexes were equal and symmetrical. Psychiatric exam: Was essentially negative with normal mood and effect. Extremities: Negative for edema erythema Laboratory Last 24 Hours Test 02/16/17 18:19 02/17/17 00:26 02/17/17 02:20 02/17/17 08:45 Activated Partial Thromboplast Time 44.1 SECONDS 162.0 SECONDS 93.8 SECONDS 85.8 SECONDS Partial Thromboplastin Ratio 1.7 6.2 3.6 3.3 Carcinoembryonic Antigen < 0.5 ng/ml White Blood Count 4.77 K/uL Red Blood Count 4.16 M/uL Hemoglobin 14.3 g/dL Hematocrit 40.2 % Mean Corpuscular Volume 96.6 fL Mean Corpuscular Hemoglobin 34.4 pg Mean Corpuscular Hemoglobin Concent 35.6 g/dl RDW Standard Deviation 45.6 fL RDW Coefficient of Variation 12.9 % Platelet Count 166 K/uL Mean Platelet Volume 10.4 fL Nucleated RBC Absolute Count (auto) 0.00 K/uL Nucleated Red Blood Cells % 0.0 % Sodium Level 139 mmol/L Potassium Level 3.7 mmol/L Chloride Level 102 mmol/L Carbon Dioxide Level 30 mmol/L Anion Gap 7.0 mmol/L Blood Urea Nitrogen 8 mg/dl Creatinine 0.80 mg/dl Est Creatinine Clear Calc Drug Dose 97.0 ml/min Estimated GFR () 106.4 Estimated GFR (Non- 91.8 BUN/Creatinine Ratio 9.7 Random Glucose 117 mg/dl Calcium Level 8.0 mg/dl Magnesium Level 2.0 mg/dl Assessment & Plan Pulmonary emboli. He appears clinically stable. Currently on IV heparin. He tells me that financially he would not be able to afford a drug like Lovenox. Subsequently I believe her conversion then to Coumadin would be reasonable to achieve an INR 2.0-3.0. Should note he cannot recall any history of cancer in first-degree relatives. In regards to assessing the liver defects I believe it would be preferable to wait at least a month if not more before biopsying the liver. Would ask for surgical consultation. His lab work has remained stable.
--- NOTE | 2017-02-17 11:27 | Hospitalist Progress Note ---
Hospitalist Progress Note Date of Service Feb 17, 2017. Subjective Pt evaluation today including: conversation w/ patient, conversation w/ family , physical exam, chart review, lab review, review of studies, conversation w/ economics consultant (Radiology and Gen Surg), review of inpatient medication list Pain: L Pleuritic CP PO Intake: Adequate Voiding: no voiding problems Patient seen and evaluated. No acute events overnight. Continues to have pleuritic CP but reports no difficulty breathing. Discussed plan for anticoagulation. He is unsure if he can afford Lovenox but will assess insurance and if not utilize Warfarin. Discussed liver bx with radiology. Recommend U/S to better locate lesions for possible Bx. Gen Surg does not feel they can reach them percutaneously. Constitutional: No fever, No chills Respiratory: No shortness of breath Cardiovascular: + chest pain (pleuritic - L chest), No palpitations Abdomen: No pain, No nausea, No vomiting, No diarrhea, No constipation Musculoskeletal: No swelling, No calf pain Male : No dysuria Psychiatric: + substance abuse (10-12 liquor drinks/day), No depression symptoms, No anxiety Heme: No abnormal bleeding/bruising Medications Current Inpatient Medications Medications (Trade) Dose Ordered Sig/[place] Route Start Time Stop Time Status Last Admin Dose Admin Acetaminophen (Tylenol Tab) 650 mg Q4H PRN PO 02/16/17 10:45 03/18/17 10:44 02/16/17 17:19 650 MG Al Hydrox/Mg Hydrox/Simethicone (Maalox Max Susp) 15 ml Q4H PRN PO 02/16/17 10:45 03/18/17 10:44 Magnesium Hydroxide (Milk Of Magnesia Susp) 30 ml Q12H PRN PO 02/16/17 10:45 03/18/17 10:44 Zolpidem Tartrate (Ambien Tab) 5 mg HSZ PRN PO 02/16/17 10:45 03/18/17 10:44 Ondansetron HCl (Zofran Inj) 4 mg Q6H PRN IV 02/16/17 10:45 03/18/17 10:44 Morphine Sulfate (MoRPHine SULFATE INJ) 2 mg Q30M PRN IV 02/16/17 10:45 03/02/17 10:44 Polyethylene (Miralax Powder Packet) 17 gm DAILY PRN PO 02/16/17 10:45 03/18/17 10:44 Chlordiazepoxide (Librium Cap) 10 mg TID PO 02/16/17 14:00 03/18/17 13:59 02/17/17 08:07 10 MG Lorazepam (Ativan Inj) 1 mg Q4H PRN IV 02/16/17 11:30 03/18/17 11:29 02/16/17 17:19 1 MG Lorazepam (Ativan Inj) 2 mg Q4H PRN IV 02/16/17 11:30 03/18/17 11:29 Multivitamins 10 ml/Thiamine HCl 100 mg/Folic Acid 1 mg/Sodium Chloride 1,011.2 ml @ 200 mls/ hr DAILY IV 02/17/17 09:00 03/19/17 08:59 02/17/17 08:07 200 MLS/HR Heparin Sodium/ Dextrose 500 ml @ 24 mls/hr [id number] PRN IV 02/16/17 13:45 03/18/17 13:44 02/17/17 08:18 27 MLS/HR Lorazepam (Ativan Inj) PRN Dosing -Active Protocol Q1H PRN IV 02/16/17 19:15 03/18/17 19:14 Acetaminophen 1000 mg/Empty Bag 100 ml @ 400 mls/hr Q8H IV 02/16/17 20:00 03/18/17 19:59 02/17/17 04:41 400 MLS/HR Objective Vital Signs Date Time Temp Pulse Resp B/P (MAP) Pulse Ox O2 Delivery O2 Flow Rate FiO2 02/17/17 08:00 94 Room Air 02/17/17 07:41 36.7 78 19 101/79 (86) 96 Room Air 02/17/17 04:16 36.7 67 18 109/60 (76) 96 Nasal Cannula 1.0 02/17/17 04:00 Nasal Cannula 2.0 02/16/17 23:59 Nasal Cannula 2.0 02/16/17 23:47 36.4 73 16 91/57 (68) 96 Nasal Cannula 1.0 02/16/17 20:28 37.1 02/16/17 20:00 Nasal Cannula 2.0 02/16/17 19:46 38.5 02/16/17 19:44 119/70 (86) 02/16/17 18:58 39.4 122 22 98/65 (76) 92 Nasal Cannula 2.0 02/16/17 16:00 Nasal Cannula 2.0 02/16/17 15:11 37.7 115 20 127/69 (88) 94 Nasal Cannula 2.0 02/16/17 13:08 37.2 124 20 124/89 (101) 95 Room Air 02/16/17 12:41 129 20 121/81 93 02/16/17 12:25 125 20 131/89 94 Room Air Physical Exam General Appearance: no apparent distress, + thin Eyes: sclerae normal ENT: hearing grossly normal Neck: supple, no JVD, trachea midline Respiratory/Chest: lungs clear, normal breath sounds, no respiratory distress, no accessory muscle use Cardiovascular: regular rate, rhythm, no gallop, no murmur Abdomen: normal bowel sounds, non tender, soft Neurologic/Psychiatric: alert, oriented x 3 Skin: normal color, warm/dry Laboratory Results Last 24 Hours Test 02/16/17 18:19 02/17/17 00:26 02/17/17 02:20 02/17/17 08:45 Activated Partial Thromboplast Time 44.1 SECONDS 162.0 SECONDS 93.8 SECONDS 85.8 SECONDS Partial Thromboplastin Ratio 1.7 6.2 3.6 3.3 Carcinoembryonic Antigen < 0.5 ng/ml White Blood Count 4.77 K/uL Red Blood Count 4.16 M/uL Hemoglobin 14.3 g/dL Hematocrit 40.2 % Mean Corpuscular Volume 96.6 fL Mean Corpuscular Hemoglobin 34.4 pg Mean Corpuscular Hemoglobin Concent 35.6 g/dl RDW Standard Deviation 45.6 fL RDW Coefficient of Variation 12.9 % Platelet Count 166 K/uL Mean Platelet Volume 10.4 fL Nucleated RBC Absolute Count (auto) 0.00 K/uL Nucleated Red Blood Cells % 0.0 % Sodium Level 139 mmol/L Potassium Level 3.7 mmol/L Chloride Level 102 mmol/L Carbon Dioxide Level 30 mmol/L Anion Gap 7.0 mmol/L Blood Urea Nitrogen 8 mg/dl Creatinine 0.80 mg/dl Est Creatinine Clear Calc Drug Dose 97.0 ml/min Estimated GFR () 106.4 Estimated GFR (Non- 91.8 BUN/Creatinine Ratio 9.7 Random Glucose 117 mg/dl Calcium Level 8.0 mg/dl Magnesium Level 2.0 mg/dl Assessment and Plan Mr. Sparks is a 67 y/o male with PMHx of ETOH abuse who presents with B/L PEs and incidental hepatic lesions Bilateral Pulmonary Embolism: - Patient stable without supplemental O2 needs - continues to have pleuritic CP - Change to Lovenox 1.5 mg/kg SC and will initiate Coumadin - discussed with case management to assess ability for insurance coverage of Lovenox vs Coumadin Hepatic Lesions: - Discussed with Gen Surg who will not be able to percutaneously obtain sample - Discussed with radiology - will obtain liver U/S for better visualization but feels that likely will not be able to be done by them - Possible need for open surgical resection or referral to specialist - Unsure if this may be a metastatic process vs other etiology - Liver function testing WNL with only mild elevation in total bili - Heme/Onc following ETOH Abuse: - Reports drinking 10-12 liquor containing drinks daily - Daily banana bag with AWSS protocol - Librium 10 mg TID and will taper accordingly DVT Prophylaxis: Therapeutic Lovenox and Coumadin bridge Disposition: - Likely unable to do bx at this time. Pending insurance coverage can start Coumadin and bridge with Lovenox. - Likely D/C 1-2 days pending coverage with outpatient F/U with Heme/Onc and Gen Surg Continued [facility] stay due to: multiple IV medications needed Discharge planning: home
[2017-02-17] MEDS ORDERED: ENOXAPARIN 1.5 MG/KG SQ ONE (11:30)
[2017-02-17] MEDS ORDERED: ENOXAPARIN 150 MG/1ML SYR SQ ONE (12:15)
--- NOTE | 2017-02-17 14:34 | DIAGNOSTIC IMAGING REPORT ---
ULTRASOUND RIGHT UPPER QUADRANT ABDOMEN CLINICAL HISTORY: Liver lesion. Assess for liver biopsy. COMPARISON STUDY: Abdominal CT dated 02/16/2017. TECHNIQUE: Real-time, grayscale, and color flow sonography of the right upper quadrant of the abdomen was performed. Images are reviewed in the transverse and longitudinal planes. FINDINGS: Liver: The liver is normal in size and demonstrate heterogeneously increased echotexture consistent with hepatic steatosis. There is no intrahepatic biliary ductal dilatation. The main portal vein is patent. Tiny hyperechoic lesions are suggested and measure up to 1.2 cm. It is unclear if these correspond to the lesions seen by CT. Gallbladder: The gallbladder is normal in appearance. No gallstones are identified. There is no gallbladder wall thickening or pericholecystic fluid. A sonographic Ronquillo's sign is reportedly absent. The common bile duct measures up to 0.4 cm in diameter. Pancreas: Not well visualized due to overlying bowel gas. Right kidney: Survey images of the right kidney demonstrate mild cortical atrophy. There is no hydronephrosis. Ascites: None. IMPRESSION: 1. No acute sonographic abnormality is identified. No gallstones are seen. 2. The liver demonstrates heterogeneously increased echotexture consistent with hepatic steatosis. 3. The tiny liver lesions seen by CT are not well visualized by ultrasound and are not seen well enough to attempt ultrasound-guided biopsy. Electronically signed by: Aftab Stringer M.D. 02/17/2017 2:33 PM Dictated Date/Time: 02/17/2017 2:29 PM
[2017-02-17 16:05] LABS: PARTIAL THROMBOPLASTIN RATIO 1.9
[2017-02-17] MEDS: WARFARIN SOD 5 MG TAB PO SCH (16:34)
[2017-02-18 03:10] VITALS: BP 116/79; PULSE 73; TEMP 36.9; O2SAT 93
[2017-02-18] MEDS: ACETAMINOPHEN IV 1,000 MG in EMPTY BAG 0 ML IV SCH (04:00)
[2017-02-18 06:12] LABS: MEAN CELL VOLUME 95.1 fL (80-100); MEAN CORPUSCULAR HEMOGLOBIN 33.7 pg (25-34); MEAN CORPUSCULAR HGB CONC 35.4 g/dl (32-36); MEAN PLATELET VOLUME 10.5 fL (7.4-10.4); PLATELET COUNT 156 K/uL (130-400); WHITE BLOOD COUNT 3.83 K/uL (4.8-10.8)
[2017-02-18 06:27] LABS: INR 1.1 (0.9-1.1); PROTHROMBIN TIME (PATIENT) 12.3 SECONDS (9.0-12.0)
[2017-02-18 06:46] LABS: BUN/CREATININE RATIO 13.9 (10-20); CALCIUM 8.2 mg/dl (8.5-10.1); CREATININE 0.54 mg/dl (0.60-1.40); POTASSIUM 3.7 mmol/L (3.5-5.1)
[2017-02-18] MEDS: CHLORDIAZEPOXIDE 10 MG CAP PO SCH ×3 (07:50→20:44)
[2017-02-18] MEDS: ENOXAPARIN 150 MG/1ML SYR SQ SCH (07:54)
[2017-02-18 07:59] VITALS: BP 98/80; PULSE 75; TEMP 36.6; O2SAT 94
[2017-02-18] MEDS ORDERED: ENOXAPARIN 1.5 MG/KG SQ SCH (09:00)
[2017-02-18] MEDS: MULTI-VITAMIN INFUSION INJ 10 ML, THIAMINE HCL INJ 100 MG, FoLIC ACID INJ 1 MG in SODIU... IV SCH (09:57)
[2017-02-18 11:11] VITALS: BP 109/71; PULSE 84; TEMP 36.4; O2SAT 93
--- NOTE | 2017-02-18 11:18 | Progress Note ---
Subjective Date of Service: Feb 18, 2017. Subjective Pt evaluation today including: conversation w/ patient, conversation w/ family ( at bedside), physical exam, chart review, lab review, review of studies ( CTs, u/s, etc), conversation w/ inside sales consultant (infectious disease by phone), review of inpatient medication list Pain: none PO Intake: very good breakfast Voiding: no voiding problems, no incontinence tele - 8 beat run of wide complex tachycardia, irregular feels "much better" denies any cp, sob, fever/chills - although had latter last night (nurses documenting rigors yesterday) no recent tick bites, travel no sick contacts 20 pound weight loss with anorexia over last few months Problem List Medical Problems: (1) Abnormal chest xray Status: Acute (2) Fall down stairs Status: Acute (3) Hypoxia Status: Acute (4) Lower back pain Status: Acute Review of Systems Constitutional: + fever, + chills Respiratory: No cough, No shortness of breath Cardiac: No chest pain, No orthopnea Abdomen: No pain, No nausea, No vomiting, No diarrhea Male : No dysuria Objective Vital Signs Date Time Temp Pulse Resp B/P (MAP) Pulse Ox O2 Delivery O2 Flow Rate FiO2 02/18/17 07:59 36.6 75 18 98/80 (86) 94 Room Air 02/18/17 04:16 Room Air 02/18/17 03:10 36.9 73 16 116/79 (91) 93 Room Air 02/18/17 00:51 Room Air 02/17/17 23:16 36.5 74 18 102/59 (73) 93 Room Air 02/17/17 20:04 Room Air 02/17/17 18:59 37.4 97 18 102/68 (79) 93 Room Air 02/17/17 17:34 37.5 02/17/17 16:33 38.1 02/17/17 16:00 Room Air 02/17/17 15:28 38.0 116 18 103/63 (76) 92 Room Air 02/17/17 12:52 37.0 02/17/17 12:00 Room Air 02/17/17 11:10 36.7 84 18 132/86 (101) 95 Room Air Physical Exam General Appearance: no apparent distress ENT: pharynx normal Neck: no JVD Respiratory/Chest: lungs clear, no respiratory distress, no accessory muscle use, + rales (minimal, dry, bases) Cardiovascular: regular rate, rhythm, no gallop, no murmur Abdomen: normal bowel sounds, non tender, soft, + hepatomegaly (liver edge palpable) Extremities: no pedal edema Neurologic/Psychiatric: alert, oriented x 3, + pertinent finding (no tremors or other outward signs of etoh withdrawal ) Skin: no rash Lymphatic: no adenopathy (no cervical or axillary lymph nodes) Laboratory Results Last 24 Hours Test 02/17/17 15:24 02/18/17 05:54 Activated Partial Thromboplast Time 49.8 SECONDS Partial Thromboplastin Ratio 1.9 White Blood Count 3.83 K/uL Red Blood Count 4.10 M/uL Hemoglobin 13.8 g/dL Hematocrit 39.0 % Mean Corpuscular Volume 95.1 fL Mean Corpuscular Hemoglobin 33.7 pg Mean Corpuscular Hemoglobin Concent 35.4 g/dl RDW Standard Deviation 44.4 fL RDW Coefficient of Variation 12.8 % Platelet Count 156 K/uL Mean Platelet Volume 10.5 fL Erythrocyte Sedimentation Rate 42 mm/hr Prothrombin Time 12.3 SECONDS Prothromb Time International Ratio 1.1 Sodium Level 138 mmol/L Potassium Level 3.7 mmol/L Chloride Level 105 mmol/L Carbon Dioxide Level 26 mmol/L Anion Gap 7.0 mmol/L Blood Urea Nitrogen 8 mg/dl Creatinine 0.54 mg/dl Est Creatinine Clear Calc Drug Dose 143.7 ml/min Estimated GFR () 125.0 Estimated GFR (Non- 107.9 BUN/Creatinine Ratio 13.9 Random Glucose 93 mg/dl Calcium Level 8.2 mg/dl C-Reactive Protein 9.09 mg/dl Assessment and Plan 68yo male - 1. b/l PEs - unprovoked - has been transitioned to lovenox 1.5mg/kg with coumadin he drinks heavily and will SIGNIFICANT counseling about interaction of coumadin with etoh with the liver lesions & weight loss - occult cancer? heme/onc consult appreciated agree that liver bx at this time would be risky in light of anticoagulation 2. fever/SIRS - cause? had temp >39 a few days ago - although fever is possible with VTE the level of fever would be unusual for VTE also concerning is that he had fever WHILE ON TYLENOL liver w/ numerous lesions - microabscesses? but blood cx's negative thus far stop tylenol; observe temps off of such reculture blood if another spike no signs of lymphoma on CT imaging consider tick-borne tests (lyme's) etoh withdrawal can cause fever but not showing much in the way of withdrawal otherwise check u/a check echo to r/o valvular lesions sed rate/crp mildly high - unsure of significance 3. etoh abuse - on librium for prevention/treatment of etoh withdrawal continue banana bag daily ativan prn 4. wide complex tachycardia - no symptoms lytes are stable echo pending 5. mild leukopenia - viral? tick-borne? other? repeat CBC in am hold off on discharge today due to fever Continued [facility] stay due to: fever, abnormal vital signs, multiple IV medications needed Discharge planning: home
[2017-02-18] MEDS ORDERED: PERFLUTREN LIPID MICROSPHERE (DEFINITY) IV ONE (11:59)
--- NOTE | 2017-02-18 12:56 | ECHOCARDIOGRAM REPORT ---
*NOTICE TO RECEIVING DEMOCRAT AGENCY This information is strictly Confidential and protected under [place] law. [place] law prohibits you from making any further disclosure of this information unless further disclosure is expressly permitted by the written consent of the person to whom it pertains or is authorized by law. A general authorization for the release of medical or other information is not sufficient for this purpose. Hospital accepts no responsibility if the information is made available to any other person, INCLUDING THE PATIENT. Interpretation Summary * Name: KELSY MCCORMACK Study Date: 02/18/2017 11:26 AM BP: 98/80 mmHg * Patient Location: .2E\S\E210\S\1 HR: 76 * : 1950 (M/d/yyyy) Gender: Male Height: 72 in * Age: 67 yrs Ethnicity: CA Weight: 189 lb * Ordering Physician: Sincere Jonas * Referring Physician: Self, Referred * Performed By: Woo Singh RDCS * * Reason For Study: NSVT, fevers * BSA: 2.1 m2 * -- Conclusions -- * Left ventricular systolic function is low normal. * No regional wall motion abnormalities noted. * Ejection Fraction = 50-55%. * There is mild concentric left ventricular hypertrophy. * Grade I diastolic dysfunction, (abnormal relaxation pattern). * There is mild mitral regurgitation. * There is mild tricuspid regurgitation. Procedure Details * A complete two-dimensional transthoracic echocardiogram was performed (2D, M-mode, Doppler and color flow Doppler). * The study was technically difficult. * The study was technically difficult, but visualization was adequate with the administration of Definity ultrasound contrast. * A contrast injection of Definity was performed to improve assessment of LV function. * One vial of Definity ultrasound contrast was diluted in normal saline to a total volume of 10 ml. A total of '4' ml of solution was administered during imaging. * Lot # [id number] of Definity utilized for procedure. * Expiration date . * The attending nurse who injected the contrast agent was MARKO Dinh. Left Ventricle * The left ventricle is normal in size. * There is mild concentric left ventricular hypertrophy. * Left ventricular systolic function is low normal. * Ejection Fraction = 50-55%. * No regional wall motion abnormalities noted. Right Ventricle * The right ventricle is not well visualized. * The right ventricular systolic function is normal as assessed by tricuspid annular plane systolic excursion (TAPSE) (normal >1.5 cm). Atria * The left atrium is mildly dilated. * Right atrium not well visualized. * There is no evidence of atrial septal defect, but resolution does not allow assessment for a patent foramen ovale. Mitral Valve * The mitral valve anatomy is normal. * Mitral stenosis is absent. * There is mild mitral regurgitation. Tricuspid Valve * The tricuspid valve anatomy is normal. * There is mild tricuspid regurgitation. Aortic Valve * The aortic valve is normal in structure and function. * Aortic stenosis is absent. * Trace aortic regurgitation. Pulmonic Valve * The pulmonary valve is not well seen, but the Doppler examination is normal without significant regurgitation or stenosis. Great Vessels * Borderline aortic root dilatation. * The pulmonary is not well visualized. Pericardium/Pleural * There is no pericardial effusion. Great Vessels * Normal inferior vena cava size and collapsability with sniff indicates a normal right atrial pressure of 3 mmHg Left Ventricular Diastolic Function * Grade I diastolic dysfunction, (abnormal relaxation pattern). MMode 2D Measurements and Calculations IVSd 0.96 cm IVSs 1.4 cm LVIDd 4.6 cm LVIDs 3.2 cm LVPWd 0.97 cm LVPWs 1.3 cm IVS/LVPW 0.99 FS 29.6 % EDV(Teich) 96.4 ml ESV(Teich) 41.7 ml EF(Teich) 56.7 % EDV(cubed) 96.1 ml ESV(cubed) 33.5 ml EF(cubed) 65.1 % % IVS thick 45.5 % % LVPW thick 38.3 % LV mass(C)d 149.3 grams LV mass(C)dI 71.8 grams/m\S\2 LV mass(C)s 148.0 grams LV mass(C)sI 71.2 grams/m\S\2 SV(Teich) 54.6 ml SI(Teich) 26.3 ml/m\S\2 SV(cubed) 62.6 ml SI(cubed) 30.1 ml/m\S\2 Ao root diam 3.2 cm Ao root area 8.0 cm\S\2 ACS 2.2 cm LA dimension 4.1 cm asc Aorta Diam 3.3 cm LA/Ao 1.3 LVOT diam 2.0 cm LVOT area 3.1 cm\S\2 LVAd ap4 28.1 cm\S\2 LVLd ap4 7.1 cm EDV(MOD-sp4) 86.0 ml LVAs ap4 16.9 cm\S\2 LVLs ap4 6.0 cm ESV(MOD-sp4) 40.2 ml EF(MOD-sp4) 53.3 % LVAd ap2 26.3 cm\S\2 LVLd ap2 7.4 cm EDV(MOD-sp2) 77.3 ml LVAs ap2 17.6 cm\S\2 LVLs ap2 6.5 cm ESV(MOD-sp2) 38.2 ml EF(MOD-sp2) 50.6 % SV(MOD-sp4) 45.8 ml SI(MOD-sp4) 22.0 ml/m\S\2 SV(MOD-sp2) 39.1 ml SI(MOD-sp2) 18.8 ml/m\S\2 Doppler Measurements and Calculations MV E max tricia 61.1 cm/sec MV A max tricia 68.9 cm/sec MV E/A 0.89 MV dec time 0.24 sec Ao V2 max 97.9 cm/sec Ao max PG 3.8 mmHg Ao max PG (full) 1.6 mmHg SHARON(V,A) 2.4 cm\S\2 SHARON(V,D) 2.4 cm\S\2 LV V1 max PG 2.3 mmHg LV V1 max 75.2 cm/sec PA V2 max 91.2 cm/sec PA max PG 3.3 mmHg PI end-d tricia 90.1 cm/sec
[2017-02-18 15:12] LABS: URINE APPEARANCE CLEAR (CLEAR); URINE BILIRUBIN NEG (NEG); URINE COLOR YELLOW; URINE NITRITE NEG (NEG); URINE PH 7.5 (4.5-7.5); URINE SPECIFIC GRAVITY 1.012 (1.000-1.030); UROBILINOGEN NEG (NEG)
[2017-02-18 15:16] LABS: MANUAL MICROSCOPIC REQUIRED? NO; REVIEW REQ? NO
[2017-02-18 15:29] VITALS: BP 115/80; PULSE 80; TEMP 36.7; O2SAT 95
[2017-02-18] MEDS: WARFARIN SOD 5 MG TAB PO SCH (15:56)
[2017-02-18 20:45] VITALS: BP 124/80; PULSE 81; TEMP 36.7; O2SAT 94
[2017-02-18 23:48] VITALS: BP 117/69; PULSE 77; TEMP 37.6; O2SAT 93
[2017-02-19 05:18] VITALS: BP 119/69; PULSE 81; TEMP 37.4; O2SAT 90
[2017-02-19 06:05] LABS: BASO % 0.2 %; BASO ABS # 0.01 K/uL (0-0.2); COMPLETE YES; EOS % 3.4 %; HEMATOCRIT 41.2 % (42-52); LYMPH % 35.8 %; LYMPH ABS # 1.71 K/uL (1.2-3.4); MEAN CELL VOLUME 95.4 fL (80-100); MEAN CORPUSCULAR HEMOGLOBIN 33.6 pg (25-34); MEAN CORPUSCULAR HGB CONC 35.2 g/dl (32-36); MEAN PLATELET VOLUME 10.9 fL (7.4-10.4); MONO % 16.6 %; PLATELET COUNT 179 K/uL (130-400); RED BLOOD COUNT 4.32 M/uL (4.7-6.1); WHITE BLOOD COUNT 4.77 K/uL (4.8-10.8)
[2017-02-19 06:14] LABS: INR 1.6 (0.9-1.1); PROTHROMBIN TIME (PATIENT) 17.4 SECONDS (9.0-12.0)
[2017-02-19 07:37] VITALS: BP 131/86; PULSE 87; TEMP 37.1; O2SAT 93
[2017-02-19] MEDS: CHLORDIAZEPOXIDE 10 MG CAP PO SCH (08:08)
[2017-02-19] MEDS: ENOXAPARIN 150 MG/1ML SYR SQ SCH (08:09)
[2017-02-19] MEDS ORDERED: CEROVITE ADV FORMULA TAB PO SCH (09:00)
[2017-02-19] MEDS ORDERED: THIAMINE HCL 100 MG TAB PO SCH (09:00)
[2017-02-19 10:11] VITALS: BP 131/86; PULSE 87; TEMP 37.1; O2SAT 93
[2017-02-19] MEDS ORDERED: LVNIS150 SQ (10:28)
[2017-02-19] MEDS ORDERED: THM100 PO (10:28)
[2017-02-19] MEDS ORDERED: CMD5 PO (10:28)
[2017-02-19] MEDS ORDERED: LBR10 PO (10:28)
[2017-02-19] MEDS ORDERED: LOVENOX TEACHING KIT SCH (10:30)
--- NOTE | 2017-02-19 10:42 | Discharge Instructions ---
Discharge Instructions Date of Service Feb 19, 2017. Admission Reason for Admission: Liver Lesion, Pulmonary Emboli VTE Date & Time Date of VTE Diagnosis: Feb 16, 2017 Time of VTE Diagnosis: 09:20 Discharge Goals Goal(s): Learn about illness, Diagnostic testing, Therapeutic intervention Activity Recommendations Activity Limitations: as noted below For the next week would perform "light duty" activities. That is - avoid heavy exertional activities as you likely will become short of breath with doing those activities. Heavy exertional activities include outdoor yard work, lifting over 20 pounds, heavy indoor chores/jobs, etc. Light walks are fine. . Instructions / Follow-Up Instructions / Follow-Up From Dr. Jonas: 1. Blood clot and coumadin (also known as warfarin) information: Medication Instructions: * Warfarin is a medicine prescribed to prevent blood clots * Warfarin will thin your blood and help prevent new clots * Take your medications exactly as directed * Never skip a dose. Never take a double dose. If you miss a dose, take it as soon as you remember * It is important for your doctor to monitor your prothrombin time (PT) and INR. This is a lab test. I like to call it the "coumadin level." * Please report to Dr. Farias's office on 02/20/17, for a blood draw to check your PT/INR. Bring the script with you that has the lab order. Risk of Adverse Drug Reactions and Interactions: * Warfarin increases your risk of bleeding * The food you eat and other medications you take can affect how Warfarin works in your body * STOP YOUR ASPIRIN at this time * It is very important to talk with your doctor about all of the other medicines , antibiotics, vitamins or herbal products that you are taking * All of your medication must be approved by your doctor, including new medicines, as well as medicines you have taken before you started taking Warfarin Diet: * In order for Warfarin to work properly, it is important to keep your intake of Vitamin K as consistent as possible * You should avoid any sudden change in Vitamin K intake. High vitamin K foods include certain cereals, leafy greens, etc. * Report any significant changes in your diet or weight to your doctor Call your Primary Care doctor if you experience any of the following: * Swelling or Pain in your leg * Sudden, continuous pain deep in a muscle * Pain that worsens when you are active or when you stand still for a long time * Chest Pain * Sudden Shortness of Breath * Rapid or pounding heart beat * Fainting * Dizziness * Cough with blood or bloody sputum * Sweating more than normal * Bruises * Heavy or uncontrolled bleeding * Blood in your urine, stool or vomit * Black or tarry stools Caring for Your Self at Home: * Avoid sitting, standing or lying down for long periods without moving your legs and feet * When traveling by car, stop to get out and move around at least once every 3 hours * On long airplane, train or bus rides, get up and move around when possible * If you can't get up, wiggle your toes and tighten your calves to keep your blood moving Other recommendations: 1. when shaving please use an ELECTRIC razor rather than a traditional straight razor. 2. Alcohol intake of any kind interacts heavily with coumadin. Please try to moderate your alcohol intake by cutting back to 2 drinks each day OR LESS. Coumadin aside -- cutting back your alcohol intake is important for your overall health and well-being. Larger amounts of alcohol will cause the coumadin levels in your blood to rise and make you more susceptible to bleeding. 3. Take the lovenox injections once daily starting TOMORROW MORNING on . Dr. Farias will let you know when the lovenox injections can be stopped. 4. START coumadin 5mg once daily TONIGHT on 02/19/17. Take the coumadin in the late afternoon. Try to take coumadin about the same time every day. 2. Follow-up appointments - * see separate section with appointment dates/times. * see Dr. Leonel Lloyd, [facility], in about 2 weeks * Dr. Lloyd can coordinate a liver biopsy in the next few weeks 3. Return to [facility] if - * you develop recurrent fever greater than 100.5 degrees * you have worsening shortness of breath * you have worsening chest pain * you develop bleeding from the nose, rectum, penis * any other concerns Current Hospital Diet Patient's current hospital diet: Regular Diet Discharge Diet Recommended Diet: Regular Diet Procedures Procedures Performed: CAT scan of the lungs showing bilateral pulmonary emboli (blood clots). CAT scan of the abdomen & pelvis showing multiple liver lesions. Ultrasound of liver - no cirrhosis. Ultrasound of legs - NO blood clots seen. Echocardiogram (ultrasound of heart) - normal heart function, normal valve function, no evidence of any infection on the heart valves. Pending Studies Studies pending at discharge: no Medical Emergencies . Who to Call and When: Medical Emergencies: If at any time you feel your situation is an emergency, please call 911 immediately. . Non-Emergent Contact Non-Emergency issues call your: Primary Care Provider Call Non-Emergent contact if: temperature is above 100.5, you have any medication questions . . "Provider Documentation" section prepared by Sincere Jonas. . VTE Core Measure Inpt VTE Proph given/why not?: Enoxaparin (Lovenox)SQ, Warfarin (Coumadin) Reason no anticoag overlap I/P: Treatment provided - N/A Reason no anticoag overlap @DC: Treatment provided - N/A
[2017-02-19] MEDS ORDERED: ENOXAPARIN 150 MG/1ML SYR SQ SCH (10:45)
--- NOTE | 2017-02-19 18:20 | Discharge Summary ---
Discharge Summary Date of Service Feb 19, 2017. Discharge Summary Admission Date: Feb 16, 2017 at 10:43 Discharge Date: Feb 19, 2017 Discharge Disposition: Home Principal Diagnosis: bilateral pulmonary emboli Problems/Secondary Diagnoses: 1. multiple hepatic lesions - cause uncertain 2. SIRS 2nd to PEs 3. alcoholism 4. probable mild alcohol withdrawal 5. recent weight loss Immunizations: Have You Had Influenza Vaccine: No History of Tetanus Vaccine?: Yes History of Pneumococcal: No History of Hepatitis B Vaccine: No Procedures: 1. CTA chest: IMPRESSION: 1. Multiple bilateral segmental and subsegmental pulmonary emboli involve the upper and lower lobes. No evidence of right heart strain or large pulmonary infarction. 2. Small left and trace right pleural effusions with subsegmental bibasilar groundglass and consolidative opacities suggesting atelectasis. 3. Multiple ill-defined low attenuating lesions throughout the right and left hepatic lobes measuring up to 1.2 cm are new from prior study 11/22/2016 concerning for possible metastatic disease. Further evaluation with CT abdomen and pelvis recommended. 4. Multiple subacute appearing bilateral rib fractures. 2. CT abd/pelvis: IMPRESSION: 1. Confirmation of the multiple small subtle hypodense lesions seen scattered throughout the liver with the largest measuring 1.2 cm. These are incompletely characterized on this single phase study. These could represent microabscesses or possible metastatic disease given the multiple lesions. Correlation with LFTs and one month abdominal CT/MRI follow-up is recommended. 2. Bilateral pulmonary emboli are better appreciated on the same day chest CT. 3. Trace left pleural effusion. 4. Colonic diverticulosis. 5. No bowel wall thickening or obstruction. 3. b/l lower extremity venous duplex exam negative for DVT 4. liver u/s - no features of cirrhosis. Hepatic lesions seen on CT were NOT appreciated on ultrasound. 5. echocardiogram: * -- Conclusions -- * Left ventricular systolic function is low normal. * No regional wall motion abnormalities noted. * Ejection Fraction = 50-55%. * There is mild concentric left ventricular hypertrophy. * Grade I diastolic dysfunction, (abnormal relaxation pattern). * There is mild mitral regurgitation. * There is mild tricuspid regurgitation. Consultations: heme/onc - Leonel Lloyd, DO Medication Reconciliation New Medications: Chlordiazepoxide (Chlordiazepoxide HCl) 10 Mg Cap 10 MG PO DIRECTED, #9 CAP 0 Refills start 02/19/17: take 1 tablet twice daily x 3 days, then 1 tablet daily x 3 days, then stop. Enoxaparin (Lovenox) 150 Mg/1 Ml Inj 130 MG SQ DAILY, #3 SYR 0 Refills Thiamine HCl (Vitamin B-1) 100 Mg Tab 200 MG PO BID for 30 Days, #120 TAB 0 Refills Warfarin Sod (Coumadin) 5 Mg Tab 5 MG PO DAILY, #30 TAB 5 Refills Continued Medications: Multivitamin (Multivitamin) Tab 1 TAB PO DAILY, TAB Discontinued Medications: Aspirin (Aspirin Ec) 81 Mg Tab 81 MG PO DAILY Referrals At Discharge Follow up Referrals: Oncology/Hematology Referral - Within 2 Weeks with Leonel Lloyd D.O. Discharge Exam Physical Exam: General Appearance: WD/WN, no apparent distress ENT: pharynx normal Neck: no JVD Respiratory/Chest: lungs clear, no respiratory distress, no accessory muscle use Cardiovascular: regular rate, rhythm, no gallop, no murmur, normal peripheral pulses Abdomen / GI: normal bowel sounds, non tender, soft, no organomegaly Extremities: no pedal edema Neurologic/Psychiatric: alert, oriented x 3 Skin: no rash Lymphatic: no adenopathy (no cervical, axillary, or inguinal lymphadenopathy ) Hospital Course HISTORY OF PRESENT ILLNESS: 67yo male with recent multiple rib fractures and excessive alcohol use who presented with the acute onset CP, SOB and diaphoresis. Pain was largely pleuritic, nonradiating - denied N/V. Denied any history of cardiovascular disease. A CTA in the ER revealed B/L segmental pulmonary emboli. Unfortunately there was an incidental finding of hepatic lesions as well which may be consistent with metastatic disease. HOSPITAL COURSE: The patient was initially treated with heparin infusion for his bilateral pulmonary emboli. He required NC O2 just briefly. His pleuritic pain improved over several days. The exact cause of his VTE was uncertain as he denied recent travel/prolonged immobilization, family history of VTE, or recent surgery. However, the liver lesions were concerning that perhaps an occult cancer was the cause. A hypercoagulable work-up was sent by the admitting physician. Mr. Sparks was seen in consult by Dr. Leonel Lloyd, hematology/oncology, who recommended transitioning Mr. Sparks to a lovenox bridge with coumadin. Ideally his VTE would be best treated with lovenox alone (if the lesions in the liver route returner to be metastatic cancer) but unfortunately the patient lacks medication insurance and thus the cost would be prohibitive. He was deemed not a candidate for the newer anticoagulants (eliquis, etc) as well due to the concern that the PEs were malignancy-related. INR on day of discharge was 1.6. He was sent home on lovenox 130mg once daily along with coumadin 5mg once daily. He will need at least 2 days of overlap therapy once INR is >2. He will obtain an INR on 02/20/17, to help guide his coumadin dosing. EXTENSIVE counseling was given to the patient and his children about the strong interaction between alcohol and coumadin. He was advised to cut back his drinking to 2 servings of alcohol or less per day, if possible. With respect to the liver lesions Dr. Lloyd felt it would be best to wait until after discharge to biopsy one of the lesions. This will need to be coordinated with radiology at [facility]. Mr. Sparks also had fevers throughout his stay. Blood cultures were negative, u/a was normal, CT chest did not show pneumonia, and no other source of infection was found. Echo did NOT show evidence of valvular vegetations. The likelihood that the liver lesions were microabscesses was quite low. In the 24 hours prior to discharge he had no temperature greater than 38 degrees. It is possible that the acute PEs caused the fever. Also, even alcohol withdrawal could have produced low-grade fever. Lastly, it is likely the patient had mild alcohol withdrawal while hospitalized and was treated with benzodiazepines, fluids, vitamin supplementation, and supportive care. Again he was advised to moderate his drinking or even abstain fully. The patient expressed little interest in doing so, however. Total Time Spent: Greater than 30 minutes This includes examination of the patient, discharge planning, medication reconciliation, and communication with other providers. Discharge Instructions Please refer to the electronic Patient Visit Report (Discharge Instructions) for additional information. Follow-Up 1. PT/INR on 02/20/[address] Elmer Farias on 02/22/17 3. [facility] on March 02 at 11:00 am Additional Copies To Leonel Lloyd D.O.; Elmer Farias M.D.
[2017-02-20] MEDS ORDERED: ENOXAPARIN 150 MG/1ML SYR SQ SCH (09:00)
[2017-02-20 13:20] LABS: AFP TUMOR MARKER SERUM 2.2 NG/ML (<6.1)
[2017-02-21 19:35] LABS: ANTITHROMBINIII ACTIVITY** 77 % activity (80-120); B2 GLYCOPROTEIN IGA <9 SAU (<=20); B2 GLYCOPROTEIN IGG <9 SGU (<=20); B2 GLYCOPROTEIN IGM <9 SMU (<=20); LUPUS ANTICOAGULANT** TC36573X Negative (Negative); PROTEIN C ACTIVITY** TC 1777X 65 % (70-180); PROTEIN S ACT(FUNCT)**1779X 60 % (70-150)
== END 2017-02-19 11:26 | disposition home or self-care (01) | DRG 176 ==
LOC: C.EDB 09:09 → C.2E 10:43 → ENRESERV 10:52
PROVIDERS: ADMIT Internal Medicine; ATTEND Internal Medicine
DX: I26.99 Other pulmonary embolism without acute cor pulmonale (principal); F10.239 Alcohol dependence with withdrawal, unspecified; K76.9 Liver disease, unspecified; R63.4 Abnormal weight loss; R50.9 Fever, unspecified; R00.0 Tachycardia, unspecified; D72.819 Decreased white blood cell count, unspecified; Z79.82 Long term (current) use of aspirin; Z82.49 Family history of ischemic heart disease and other diseases of the circulatory system

== ENCOUNTER → 2017-03-17 | Outpatient (CLI) | payer OTHER ==
[~2017-03-17] MED LIST changes: -ASPI81TA28 PO; -CLB100 PO; -OXYC-57 PO; +WARF5TAB90 PO
--- NOTE | 2017-03-17 13:53 | DIAGNOSTIC IMAGING REPORT ---
ABD/PELVIS IV AND ORAL CONT CLINICAL HISTORY: 67 years-old Male presenting with PULMONARY EMBOLISM. TECHNIQUE: Multidetector CT of the abdomen and pelvis was performed after the administration of oral and intravenous contrast. IV contrast: 120 mL of Optiray 320. A dose lowering technique was used consistent with the principles of ALARA (as low as reasonably achievable). COMPARISON: 02/16/2017. CT DOSE (mGy.cm): The estimated cumulative dose is 927.[address] chest. FINDINGS: Shirt Ironer topogram: External device projects over the right lower quadrant. Lung bases: Bandlike opacity in the right middle lobe and lingula likely scarring or atelectasis. Minimal atelectasis also noted in the bilateral lower lobes dependently. Normal heart size. No pericardial or pleural effusion. Liver: Normal morphology. Well-defined hypodensity in the left hepatic lobe, unchanged and likely hepatic cyst or hamartoma. Previously noted ill-defined multifocal lesions in the right hepatic lobe are only minimally apparent on the current exam (series 7 image 121). Patent hepatic vasculature. Biliary: No intrahepatic or extrahepatic biliary ductal dilatation. Normal gallbladder. Pancreas: Normal. Spleen: Normal. Adrenal glands: Normal. Kidneys and ureters: Hypodensity in the left kidney likely simple cyst. No hydronephrosis. No nephrolithiasis. Normal ureters. Bladder: Mild circumferential bladder wall thickening. Pelvic organs: Prostate and seminal vesicles normal. Bowel: Limited diverticulosis of the sigmoid and descending colon. No bowel obstruction. Peritoneal cavity: No free fluid or intraperitoneal gas. Lymph nodes: Several prominent portacaval lymph nodes, possibly reactive, stable to slightly increased in size from prior exam. Vasculature: Atherosclerosis of the normal caliber abdominal aorta. IVC patent. Abdominal wall: Normal. Musculoskeletal: Degenerative changes of the spine. Multiple chronic rib fractures again noted. IMPRESSION: 1. Significant interval decrease in appearance of the multifocal ill-defined lesions in the liver. Only minimally apparent abnormality in this region remains. This could suggest resolving microabscesses. 2. Prominent portacaval lymph nodes, possibly reactive. 3. Mild circumferential bladder wall thickening could indicate cystitis or chronic outlet obstruction. Correlate with urinalysis if clinically indicated. Electronically signed by: Charles Castañeda M.D. 03/17/2017 1:52 PM Dictated Date/Time: 03/17/2017 1:43 PM
--- NOTE | 2017-03-17 13:56 | DIAGNOSTIC IMAGING REPORT ---
CHEST CT WITH CONTRAST CT DOSE: 927.64 mGy.cm HISTORY: Follow-up study in a patient with history of pulmonary embolus PULMONARY EMBOLISM TECHNIQUE: Multiaxial CT images of the chest were performed following the intravenous administration of contrast. A dose lowering technique was utilized adhering to the principles of ALARA. COMPARISON: CTA of the chest 02/16/2017, CT chest 11/22/2016 and 08/30/2010. FINDINGS: Thyroid is homogeneous. Multiple prominent and mildly enlarged lymph nodes are seen about the mediastinum and mary jane. For example there is a right paratracheal lymph node measuring 9 mm on image 154 series 6, unchanged. 1.1 x 1.0 cm lymph node of the right hilum on image 174 series 6 is unchanged. Heart is mildly enlarged. No pericardial effusion. Mild to moderate atherosclerosis of the thoracic aorta without aneurysm or dissection. The pulmonary arterial tree is well-opacified. Minimal filling defects are seen within segmental branches of the left upper and lower lobes which have decreased in size from prior study. No large filling defects identified on the right. There is no pneumothorax or pleural effusion. Calcified granulomas are present within the left lung base. 6 mm solid noncalcified pulmonary nodule of the lateral basal segment right lower lobe is seen on image 261 of series 6, stable from 08/30/2010 compatible with benign etiology. Mild bibasilar atelectasis. Mild bilateral bronchial wall thickening suggests bronchitis. No new or suspicious pulmonary nodules identified. Mildly heterogeneous appearance of the liver, further described on CT abdomen and pelvis of same day. Mild colonic diverticulosis. Soft tissues are unremarkable. Multiple remote bilateral rib fractures. IMPRESSION: 1. Near complete resolution of the previously described multiple pulmonary emboli. There is minimal areas of peripheral filling defects within segmental pulmonary arterial branches of the left upper and lower lobes as above suggesting areas of fibrin stranding. No new pulmonary emboli identified. 2. Mild bilateral bronchial wall thickening may reflect bronchitis. 3. Unchanged mild mediastinal and hilar adenopathy. 4. 6 mm pulmonary nodule of the lateral basal segment right lower lobe is stable dating back to at least 2010 compatible with benign etiology. Electronically signed by: Juan Alberto Barrios M.D. 03/17/2017 1:55 PM Dictated Date/Time: 03/17/2017 1:43 PM
== END | disposition home or self-care (01) ==
LOC: C.CTS 11:24
PROVIDERS: ATTEND Internal Medicine Hematology & Oncology
DX: I26.99 Other pulmonary embolism without acute cor pulmonale (principal); K76.9 Liver disease, unspecified; R93.41 Abnormal radiologic findings on diagnostic imaging of renal pelvis, ureter, or bladder; R91.8 Other nonspecific abnormal finding of lung field; R91.1 Solitary pulmonary nodule

== ENCOUNTER → 2017-03-20 | Outpatient (CLI) | payer OTHER ==
[~2017-03-20] MED LIST changes: +GADOXETATE DISODIUM (NON-WT BASED PROCEDURE) IV PRN
--- NOTE | 2017-03-21 06:46 | DIAGNOSTIC IMAGING REPORT ---
MRI LIVER COMBO CLINICAL HISTORY: R93.8 Abnormal finding on [id number] hepatic masses. TECHNIQUE: Imaging was performed prior to and following IV contrast injection. COMPARISON STUDY: CT scans of the abdomen pelvis dated 11/22/2016, 02/16/2017, at 03/17/2017 FINDINGS: Imaging was performed in the sagittal and coronal planes, before and after the administration of 10 cc of intravenous Gadavist. There is a 9 mm T2 bright mid pole left renal lesion consistent with a cyst. There is no pathologic abdominal aortic dilatation. No splenic masses are visualized. No pancreatic masses are visualized. No adrenal masses are visualized. No gallbladder abnormalities are visualized. There is no ductal dilatation. The common bile measures 4 mm. There is no pathologic upper abdominal adenopathy. Within the liver, there is a 5 mm nonenhancing T2 bright lesion within the lateral segment the left lobe. This likely represents a tiny hepatic cyst. There is been interval resolution of the previously identified multifocal hepatic lesions. IMPRESSION: 1. Nonenhancing 5 mm T2 bright lesion within the lateral segment of the left hepatic lobe. This likely represents a cyst 2. Interval resolution of the previously identified multifocal hepatic lesions. 3. 9 mm left renal cyst Electronically signed by: Jhony Cannon M.D. 03/21/2017 6:45 AM Dictated Date/Time: 03/21/2017 6:34 AM
== END | disposition home or self-care (01) ==
LOC: C.MRI 17:55
PROVIDERS: ATTEND Internal Medicine
DX: R93.8 Abnormal findings on diagnostic imaging of other specified body structures (principal); R93.2 Abnormal findings on diagnostic imaging of liver and biliary tract; N28.1 Cyst of kidney, acquired

== ENCOUNTER 2023-02-12 09:45 | Inpatient (IN) ==
--- NOTE | 2023-02-12 10:37 | XRay Report ---
XR chest 1V not portable CLINICAL HISTORY: Chest pain, nonspecific TECHNIQUE: Single frontal radiograph of the chest was obtained. Comparison: Comparison is made to chest radiograph 11/22/2016 FINDINGS: No lines and tubes are seen. Calcified aortic knob is seen. The lungs are clear. No evidence of pleur al effusion or pneumothorax. Old healed rib fractures are seen on the left. IMPRESSION: No acute chest disease. ACT 112: Negative or not required by law. Electronically signed by: Nain Petersen M.D. 02/12/2023 10:36 AM
[2023-02-12 10:53] LABS: Albumin Globulin Ratio 0.8 (0.9-2); Albumin Level 3.5 gm/dl (3.4-5.0); BUN Creatinine Ratio 12.2 (10-20); Bilirubin,Total 1.8 mg/dl (0.2-1.0); Calcium 7.8 mg/dl (8.6-10.3); Creatinine Clr Calc Pharmacy 49.7 ml/min; Est GFR (African American) 57.5 ml/min; Est GFR (Non-African American) 49.6 ml/min; Globulin 4.2 gm/dl (2.5-4.0); Potassium 3.8 mmol/L (3.5-5.1); Total Protein 7.7 gm/dl (6.0-8.3)
[2023-02-12 11:10] LABS: Hematocrit (blood only) 42.5 % (42.0-52.0); Hemoglobin 15.1 g/dl (14.0-18.0); Mean Corpuscular Hemoglobin 37.2 pg (25.0-34.0); Mean Corpuscular Hgb Conc 35.5 g/dL (32.0-36.0); Mean Corpuscular Volume 104.7 fL (80.0-100.0); Mean Platelet Volume 12.2 fL (9.4-12.4); Nucleated RBC # (auto) 0.02 K/uL (0.00-0.12); Nucleated RBC % (auto) 0.3 %; Platelet Count 92 K/uL (130-400); RDW Coefficient of Variation 14.3 % (11.5-14.5); RDW Standard Deviation 53.8 fL (36.4-46.3); Red Blood Count 4.06 M/uL (4.70-6.10); White Blood Count 6.31 K/ul (4.8-10.8)
[2023-02-12 11:11] LABS: Basophils # (auto) 0.02 K/uL (0.00-0.20); Basophils % (auto) 0.3 %; Eosinophils # (auto) 0.01 K/uL (0.00-0.50); Eosinophils % (auto) 0.2 %; Immature Granulocytes # (auto) 0.03 K/uL (0.01-0.20); Immature Granulocytes % (auto) 0.5 %; Lymphocytes # (auto) 1.86 K/uL (1.20-3.40); Lymphocytes % (auto) 29.5 %; Macrocytosis Present; Monocytes # (auto) 0.67 K/uL (0.11-0.59); Monocytes % (auto) 10.6 %; Neutrophils # (auto) 3.72 K/uL (1.40-6.50); Neutrophils % (auto) 58.9 %; Platelet Estimate Decreased (Normal); Polychromasia 1+
[2023-02-12 11:13] LABS: INR 1.1 (0.9-1.1); Partial Thromboplastin Time 27.7 Seconds (21.0-31.0); Prothrombin Time 12.4 Seconds (9.0-12.0)
[2023-02-12 11:33] LABS: Troponin I High Sensitivity 256.2 pg/ml (0-20)
[2023-02-12] MEDS ORDERED: OPTIRAY 320 500ml IV ONE (11:46)
--- NOTE | 2023-02-12 11:46 | Emergency Department Note ---
Impression & Plan Saddle pulmonary embolus ED Provider Note NAME: KELSY MCCORMACK AGE: 73 SEX: M : 1950 ARRIVES VIA: Walk-In INFORMANT: Patient, ED PROVIDER(S): Elizabeth De Leon MD CHIEF COMPLAINT: Shortness of breath HPI: This is a 73-year-old male with history of previous PE presenting for shortness of breath. Patient states that many years ago he had a pulmonary embolism that felt similar to the symptoms he has now. Whenever he walks around he feels short of breath. He has no chest pain with this. He notes no nausea vomiting, leg swelling or leg pain. He is not on any anticoagulation that he is aware of at this time. Overall he states he just feels unwell. He notes he actually passed out 2 days ago. He had walked out onto his porch and felt like he was in a pass out and then before he could even sit down he syncopized. ROS: See above HPI for pertinent positives & negatives. A total of 10 systems reviewed and were otherwise negative. PAST MEDICAL HISTORY: See Below PAST SURGICAL HISTORY: See Below FAMILY HISTORY: See Below SOCIAL HISTORY: See Below HOME MEDICATIONS: See Below ALLERGIES: See Below VITALS: See Below PHYSICAL EXAMINATION: General: resting comfortably in no acute distress Head: Normocephalic and atraumatic Eyes: Normal inspection, extraocular muscles intact, no conjunctival pallor Ear, nose, throat: Normal external exam Neck: Normal range of motion Respiratory: Patient is in no respiratory distress, lungs clear to auscultation bilaterally Cardiovascular: RRR without murmur appreciated GI: soft, nontender, no guarding or rebound Extremities: pulses intact with good cap refills, no LE pitting edema or calf te nderness Neuro: The patient awake and alert, appropriately conversive,no focal decifits Skin: Warm, dry, and intact MEDICAL DECISION MAKING: This is a 73-year-old male with history of previous PE not on AC presenting for shortness of breath. Patient states he has similar symptoms from his previous PE. Consider ACS versus PE at this time. Patient EKG is reviewed showing a sinus tachycardia at a rate of 119, prolonged QT at 585, otherwise slight ischemic changes with T wave inversions in the inferior and lateral leads. We will get stat CTA to rule out PE. Patient does have slight tachycardia at this time as well as an episode of syncope related to this. Due to this, patient will be sent stat to CTA. Upon my preliminary read of CTA, I do see a saddle embolism with right heart strain. We will do heparin at this time. Discussed this with hospitalist who accepts for admission because of stable vital signs. ICU was also attempted to be contacted, who discussed with hospitalist himself. Does not need to be transferred, can go to floor without ICU needs as per Dr. Ramos. Triage Nursing notes reviewed. Prior medical records reviewed Vital Signs: reviewed and remarkable for no significant abnormalities Differential diagnosis: PE, ACS, dissection ER treatment provided: See below Diagnostics interpreted by me: ECG: As above Cardiac Monitoring: An order was placed for continuous cardiac monitoring. The monitor shows a rate of 102 with sinus rhythm Laboratory studies: As stated above and show below. Imaging studies: See below. Radiographic imaging was reviewed by myself Consultation(s): None Past Med/Surg History Medical History (Updated 02/12/23 @ 17:22 by Elizabeth De Leon MD) Alcoholism Dizziness Hearing loss Left asymmetrical SNHL Liver lesion Pre-syncope Pulmonary emboli Ribs, multiple fractures Sensorineural hearing loss (SNHL) of both ears Umbilical hernia with obstruction (03/23/12) Surgical History History of hernia repair Family History Other Myocardial infarction Denies family history of Ovarian cancer Prostate cancer Breast cancer Colorectal cancer Social History Smoking Status: Never smoker Second Hand Exposure: No; Do You Dip or Chew Tobacco: No; Tobacco Cessation Education Requested by Patient: No Hx Alcohol Use: Yes Alcohol type: hard liquor Alcohol Intake Frequency: 4 or More x per/Week Alcohol Intake Frequency Comment: 1 gallon of vodka a week Hx Substance Use: Yes Last Used Substance: Days (ago) Preferred Language: [place] Visual Impairment: No Limitations Hearing Ability: Use of Hearing Aid Deputy General Counsel Required: No Beliefs That Will Affect Care: None marital status: Current Living Situation: Spouse current occupational status: retired Feels Safe at Home: Yes Safety Concerns: Feels Safe At This Time Childhood Exposure to Second-Hand Smoke: Yes Dental Care, Regularly: No Physical Activity Frequency: 1-2 Times per Week Assistive Devices: Denture - Upper, Glasses and Hearing Aid - Bilateral Allergies Allergies Allergy/AdvReac Type Severity Reaction Status Date / Time No Known Allergies Allergy Unverified 10/27/21 13:05 Home Meds Home Medications Medication Instructions Recorded Confirmed multivitamin 1 tab PO DAILY 02/12/23 02/12/23 Results & Data (ED) Vital Signs Vital Signs - 24 hr 02/12/23 10:10 02/12/23 10:24 02/12/23 10:25 Temperature 36.5 C Temperature Source Temporal Artery Scan Pulse Rate 115 H 108 H Pulse Rate from SpO2 Sensor Respiratory Rate 18 Respiratory Effort / Characteristics Non-Labored Respiratory Depth Normal Respiratory Pattern Regular Blood Pressure 111/72 Blood Pressure Mean 85 Pulse Oximetry 98 95 Oxygen Delivery Method Room Air Room Air Sepsis Recent Fever Within 48 Hours No Sepsis New/Unexplained Change in Mental Status N/A Sepsis Action Taken by Nursing No Action Required 02/12/23 10:42 02/12/23 11:00 02/12/23 11:30 Temperature Temperature Source Pulse Rate 96 H 95 H Pulse Rate from SpO2 Sensor 96 H 95 H Respiratory Rate 21 22 Respiratory Effort / Characteristics Respiratory Depth Respiratory Pattern Blood Pressure 120/84 107/86 Blood Pressure Mean 96 93 Pulse Oximetry 95 95 95 Oxygen Delivery Method Room Air Room Air Room Air Sepsis Recent Fever Within 48 Hours Sepsis New/Unexplained Change in Mental Status Sepsis Action Taken by Nursing 02/12/23 12:05 02/12/23 12:30 02/12/23 13:00 Temperature Temperature Source Pulse Rate 96 H 95 H 102 H Pulse Rate from SpO2 Sensor 96 H 95 H 102 H Respiratory Rate 23 22 21 Respiratory Effort / Characteristics Respiratory Depth Respiratory Pattern Blood Pressure 140/98 134/109 H 116/89 Blood Pressure Mean 112 116 98 Pulse Oximetry 96 95 95 Oxygen Delivery Method Room Air Room Air Room Air Sepsis Recent Fever Within 48 Hours Sepsis New/Unexplained Change in Mental Status Sepsis Action Taken by Nursing Laboratory Data 02/12/23 10:20 02/12/23 10:20 Lab Results 02/12/23 02/12/23 02/12/23 Range/Units 10:20 10:20 10:20 WBC 6.31 (4.8-10.8) K/ul RBC 4.06 L (4.70-6.10) M/uL Hgb 15.1 (14.0-18.0) g/dl Hct 42.5 (42.0-52.0) % MCV 104.7 H (80.0-100.0) fL MCH 37.2 H (25.0-34.0) pg MCHC 35.5 (32.0-36.0) g/dL RDW Std Deviation 53.8 H (36.4-46.3) fL RDW Coeff of Sandra 14.3 (11.5-14.5) % Plt Count 92 L (130-400) K/uL MPV 12.2 (9.4-12.4) fL Immature Gran % (Auto) 0.5 % Neut % (Auto) 58.9 % Lymph % (Auto) 29.5 % Sunflower % (Auto) 10.6 % Eos % (Auto) 0.2 % Baso % (Auto) 0.3 % Neut # (Auto) 3.72 (1.40-6.50) K/uL Lymph # (Auto) 1.86 (1.20-3.40) K/uL Sunflower # (Auto) 0.67 H (0.11-0.59) K/uL Eos # (Auto) 0.01 (0.00-0.50) K/uL Baso # (Auto) 0.02 (0.00-0.20) K/uL Immature Gran # (Auto) 0.03 (0.01-0.20) K/uL Absolute Nucleated RBC 0.02 (0.00-0.12) K/uL Nucleated RBC % (auto) 0.3 % Platelet Estimate Decreased L (Normal) Polychromasia 1+ Macrocytosis Present PT 12.4 H (9.0-12.0) Seconds INR 1.1 (0.9-1.1) APTT 27.7 (21.0-31.0) Seconds PTT Ratio 1.0 Sodium 132 L (136-145) mmol/L Potassium 3.8 (3.5-5.1) mmol/L Chloride 91 L (98-107) mmol/L Carbon Dioxide 25 (21-32) mmol/L Anion Gap 16 H (3-11) BUN 17 (6-23) mg/dl Creatinine 1.39 (0.6-1.4) mg/dl Est Cr Clr Drug Dosing 49.7 ml/min Est GFR ( Amer) 57.5 ml/min Est GFR (Non-Af Amer) 49.6 ml/min BUN/Creatinine Ratio 12.2 (10-20) Glucose 115 H (70-99(Fasting)) mg/dl Calcium 7.8 L (8.6-10.3) mg/dl Total Bilirubin 1.8 H (0.2-1.0) mg/dl AST 56 H (13-39) U/L ALT 36 (7-52) U/L Alkaline Phosphatase 78 (34-104) U/L Troponin I High Sens 256.2 H* (0-20) pg/ml B-Natriuretic Peptide (0-100) pg/ml Total Protein 7.7 (6.0-8.3) gm/dl Albumin 3.5 (3.4-5.0) gm/dl Globulin 4.2 H (2.5-4.0) gm/dl Albumin/Globulin Ratio 0.8 L (0.9-2) 02/12/23 02/12/23 Range/Units 12:00 12:04 WBC (4.8-10.8) K/ul RBC (4.70-6.10) M/uL Hgb (14.0-18.0) g/dl Hct (42.0-52.0) % MCV (80.0-100.0) fL MCH (25.0-34.0) pg MCHC (32.0-36.0) g/dL RDW Std Deviation (36.4-46.3) fL RDW Coeff of Sandra (11.5-14.5) % Plt Count (130-400) K/uL MPV (9.4-12.4) fL Immature Gran % (Auto) % Neut % (Auto) % Lymph % (Auto) % Sunflower % (Auto) % Eos % (Auto) % Baso % (Auto) % Neut # (Auto) (1.40-6.50) K/uL Lymph # (Auto) (1.20-3.40) K/uL Sunflower # (Auto) (0.11-0.59) K/uL Eos # (Auto) (0.00-0.50) K/uL Baso # (Auto) (0.00-0.20) K/uL Immature Gran # (Auto) (0.01-0.20) K/uL Absolute Nucleated RBC (0.00-0.12) K/uL Nucleated RBC % (auto) % Platelet Estimate (Normal) Polychromasia Macrocytosis PT (9.0-12.0) Seconds INR (0.9-1.1) APTT (21.0-31.0) Seconds PTT Ratio Sodium (136-145) mmol/L Potassium (3.5-5.1) mmol/L Chloride (98-107) mmol/L Carbon Dioxide (21-32) mmol/L Anion Gap (3-11) BUN (6-23) mg/dl Creatinine (0.6-1.4) mg/dl Est Cr Clr Drug Dosing ml/min Est GFR ( Amer) ml/min Est GFR (Non-Af Amer) ml/min BUN/Creatinine Ratio (10-20) Glucose (70-99(Fasting)) mg/dl Calcium (8.6-10.3) mg/dl Total Bilirubin (0.2-1.0) mg/dl AST (13-39) U/L ALT (7-52) U/L Alkaline Phosphatase (34-104) U/L Troponin I High Sens 193.0 H* D (0-20) pg/ml B-Natriuretic Peptide 499 H (0-100) pg/ml Total Protein (6.0-8.3) gm/dl Albumin (3.4-5.0) gm/dl Globulin (2.5-4.0) gm/dl Albumin/Globulin Ratio (0.9-2) Administered Medications Heparin Sodium/Dextrose (Heparin Sodium/Dextrose) 25,000 units in 500 mls @ 29 mls/hr IV .[id number] COUNT INCLUDES THE [facility]; Protocol Stop: 03/14/23 12:14 Last Admin: 02/12/23 12:17 Dose: 1,450 units/hr, 29 mls/hr Documented By: LOIS Co-signed By: OL Discontinued Medications Heparin Sodium (Porcine) (Heparin Sod (Porcine) 1000 Unit/Ml) 6,000 units IV NOW ONE Stop: 02/12/23 12:16 Last Admin: 02/12/23 12:17 Dose: 6,000 units Documented By: LOIS Co-signed By: RYAN Ioversol (Optiray 320 500ml) 114 ml IV ONCE ONE Stop: 02/12/23 11:47 Last Admin: 02/12/23 11:46 Dose: 114 ml Documented By: CHRIS Phenobarbital Sodium (Phenobarbital Sodium 65 Mg/Ml Vial) 200 mg IV NOW STA Stop: 02/12/23 13:22 Last Admin: 02/12/23 13:58 Dose: 200 mg Documented By: LOIS Imaging Data Radiologist's Impression: Chest X-Ray 02/12/23 10:23 XR chest 1V not portable CLINICAL HISTORY: Chest pain, nonspecific TECHNIQUE: Single frontal radiograph of the chest was obtained. Comparison: Comparison is made to chest radiograph 11/22/2016 FINDINGS: No lines and tubes are seen. Calcified aortic knob is seen. The lungs are clear. No evidence of pleural effusion or pneumothorax. Old healed rib fractures are seen on the left. IMPRESSION: No acute chest disease. ACT 112: Negative or not required by law. Electronically signed by: Nain Petersen M.D. 02/12/2023 10:36 AM Chest CTA 02/12/23 11:40 CT angio chest PE protocol CLINICAL HISTORY: PE TECHNIQUE: Multidetector row helical CT of the chest was performed with angiographic protocol. Coronal and sagittal reformations were obtained. Coronal and sagittal MIPS were obtained from the axial data set and were submitted for review. Automated dose lowering techniques and/or adjustment according to patient size were utilized for this exam. CT DOSE: 726.66 mGy.cm Comparison: Comparison is made to CT chest 03/17/2017 FINDINGS: Lungs and pleura: Atelectasis versus scarring is seen in the dependent portions of the lungs. Small bilateral pleural effusions Heart and pericardium: There is flattening of the interventricular septum with enlargement of the right ventricle compatible with right heart strain. Vessels: A nonocclusive saddle embolus is seen and there are bilateral main pulmonary artery emboli with extension into the branches. Mediastinum and mary jane: Subcentimeter lymph nodes are seen. Chest wall and lower neck: Unremarkable. Abdomen: Unremarkable. Bones: Degenerative changes of the thoracic spine. Old healed rib fractures are seen. IMPRESSION: 1. Bilateral pulmonary emboli including a saddle embolus and involvement of all lobes bilaterally, with a large thrombus burden and right heart strain. 2. Small bilateral pleural effusions with underlying atelectasis. 3. Nonspecific mediastinal lymph nodes. ACT 112: Negative or not required by law. Electronically signed by: Nain Petersen M.D. 02/12/2023 12:42 PM Discharge Plan Visit Data Chief Complaint: Shortness of Breath/Dyspnea Stated Complaint: SOB ED Provider: Elizabeth De Leon Discharge Problem: Saddle pulmonary embolus Patient Disposition: Admitted As Inpatient Discharge Instructions Interventions: ED Discharge Assessment Last Done: 02/12/23 14:54
[2023-02-12] MEDS ORDERED: Heparin IV Adult Wt-Based Standard WITH Bolus Protocol IV STA (11:55)
[2023-02-12] MEDS ORDERED: HEPARIN SOD (PORCINE) 1000 UNIT/ML IV ONE ×4 (12:10→14:15)
[2023-02-12] MEDS: HEPARIN SODIUM/DEXTROSE 25,000 UNITS/500 ML BAG IV SCH (12:17)
--- NOTE | 2023-02-12 12:39 | History & Physical Report ---
Date of Service February 12, 2023 Assessment & Plan (1) Saddle pulmonary embolus: Plan: Saddle pulmonary embolus Submassive, no hemodynamic instability/hypotension Patient with right heart findings on EKG, elevated troponin Thrombolytics not indicated at time of admission. Admit on heparin GTT with bolus to PCU Monitor for hypotension closely. If patient becomes hypotensive --> criteria for massive saddle PE and give TNKase 25 mg x 1 and transfer to ICU. Unprovoked, second episode. First blood clot was provoked in the setting of rib injury/trauma. Was on warfarin for period of time, is not on long-term blood thinners Patient does have left-sided pedal edema which began several weeks ago and some right-sided ankle edema. Likely has lower extremity DVT, is already anticoagulated as noted Denies taking current medications/aspirin/blood thinner Has not had hypercoagulability panel testing. Has never been evaluated for Eliquis/Xarelto rather than warfarin. (2) Alcoholism: Plan: Patient drinks on average a handle of vodka every other day sometimes more sometimes less Patient had 1 drink yesterday during the game at approximately 23 PM. Otherwise was/regularly drinking the evening prior. He has never had withdrawal/tremors/sweats, but notes he cannot remember the last time he went more than 2 or 3 days without alcohol High risk, and withdrawal tachycardia and instability is especially high risk in the setting of submassive PE being treated as above Given high risk discussed risk/benefits of phenobarbital for withdrawal suppression. Patient agreeable. Phenobarbital 20 mg IV load x1 now, then 60 mg 3 times daily for 1 day, 30 mg 3 times daily for 1 day, 30 mg twice daily for 1 day, 30 mg daily for 1 day, then stop AWSS monitoring (3) Pre-syncope: (4) Hypothyroidism: Plan: Previously on Synthroid (5) Elevated troponin: Plan: Downtrending following heparinization, echo pending Suspect demand with right heart strain due to submassive PE BNP elevated consistent with right heart strain Plan DVT prophylaxis: Anticoagulated Disposition: PCU, transfer to ICU if patient becomes hypotensive CODE STATUS: DNR/DNI Diet: Heart healthy History of Present Illness Primary Care Provider: Barrett Tavera, DO 1 months of dyspnea, presyncope. Progressively worsening dyspnea and with some episodes of lightheadedness with 1 episode of syncope 3 days ago which presented him to come in for evaluation. Feels similar to an episode of pulmonary emboli he had several years ago after he broke a few ribs no leg swelling no recent long trips no injuries or trauma no tobacco No chest pain, chest pressure. No inspiratory pain. He has not short of yanna ath at rest, but is easily fatigued with exertion no family history of blood clots Did have 1 episode of syncope 3 days ago. Had prodome then passed out. OWas out for a few months < at most. No incontinence. History of blood clots with PEs a few years ago after he fell and broke ribs, developed post-traumatic lcots. Was on a blood thinner for 'a short time a few months.' Etoh- half gallon of vodka q3-4d. 1 drink yesterday ~3:30, none the day before,. Has not been more than 3 days without alcohol for as long as he can remember, liquor intake equates out to approximately a handle every other day on average sometimes more sometimes less. No history of seizure Medical History: Reviewed Medications: Reviewed Surgical History: Reviewed Family history: Reviewed Allergies: Reviewed Social History: Alcohol intake as noted, high risk Code Status: DNR/DNI Allergies Allergy/AdvReac Type Severity Reaction Status Date / Time No Known Allergies Allergy Unverified 10/27/21 13:05 Home Medications Medication Instructions Recorded Confirmed Type multivitamin 1 tab PO DAILY 02/12/23 02/12/23 History Past Med/Surg History Medical History (Updated 02/12/23 @ 13:06 by Charles Gallardo MD) Alcoholism Dizziness Hearing loss Left asymmetrical SNHL Liver lesion Pre-syncope Pulmonary emboli Ribs, multiple fractures Sensorineural hearing loss (SNHL) of both ears Umbilical hernia with obstruction (03/23/12) Surgical History History of hernia repair Family History Other Myocardial infarction Denies family history of Ovarian cancer Prostate cancer Breast cancer Colorectal cancer Social History Smoking Status: Never smoker Second Hand Exposure: No; Do You Dip or Chew Tobacco: No; Hx Alcohol Use: Yes Alcohol type: hard liquor Alcohol Intake Frequency: 4 or More x per/Week Alcohol Intake Frequency Comment: 1 gallon of vodka a week Hx Substance Use: No Visual Impairment: No Limitations Hearing Ability: Use of Hearing Aid marital status: Current Living Situation: Spouse current occupational status: retired Feels Safe at Home: Yes Childhood Exposure to Second-Hand Smoke: Yes Dental Care, Regularly: No Physical Activity Frequency: 1-2 Times per Week Physical Exam Physical Exam: General: A&Ox3. NAD. Cooperative. HEENT: Atraumatic, normocephalic. Vision/hearing intact Pulm: Diminished, grossly clear. symmetrical chest rise. No increased work of breathing. No respiratory distress. Cardiac: RRR, -mrg. Radial pulses intact and symmetrical. Abdominal: Nontender, nondistended, soft. BS present. Extremities: Bilateral pedal edema is present, no calf asymmetry. He is not tremulous Results & Data Results & Data Vital Signs (Past 12 Hours) Vital Signs Temp Pulse Resp BP Pulse Ox O2 Del Method 02/12/23 11:00 96 H 21 120/84 95 Room Air 02/12/23 10:42 95 Room Air 02/12/23 10:25 95 Room Air 02/12/23 10:24 108 H 02/12/23 10:10 36.5 C 115 H 18 111/72 98 Room Air PG Care Time/CCT Total # of Minutes Spent Total Time Spent with Patient: Total time spent is greater than 50% in coordination of care (as documented) at patient's floor/unit and/or counseling patient: Coding Level of Care Code 64567 INT INP/OBS CARE 3/75MIN Diagnoses Saddle pulmonary embolus I26.92 Alcoholism F10.20 Pre-syncope R55 Hypothyroidism E03.9 Elevated troponin R79.89
--- NOTE | 2023-02-12 12:45 | CT Scan Report ---
CT angio chest PE protocol CLINICAL HISTORY: PE TECHNIQUE: Multidetector row helical CT of the chest was performed with angiographic protocol. Grande l and sagittal reformations were obtained. Coronal and sagittal MIPS were obtained from the axial rocio a set and were submitted for review. Automated dose lowering techniques and/or adjustment according to patient size were utilized for this exam. CT DOSE: 726.66 mGy.cm Comparison: Comparison is made to CT chest 03/17/2017 FINDINGS: Lungs and pleura: Atelectasis versus scarring is seen in the dependent portions of the lungs. Small b ilateral pleural effusions Heart and pericardium: There is flattening of the interventricular septum with enlargement of the rig ht ventricle compatible with right heart strain. Vessels: A nonocclusive saddle embolus is seen and there are bilateral main pulmonary artery emboli w ith extension into the branches. Mediastinum and mary jane: Subcentimeter lymph nodes are seen. Chest wall and lower neck: Unremarkable. Abdomen: Unremarkable. Bones: Degenerative changes of the thoracic spine. Old healed rib fractures are seen. IMPRESSION: 1. Bilateral pulmonary emboli including a saddle embolus and involvement of all lobes bilaterally, w ith a large thrombus burden and right heart strain. 2. Small bilateral pleural effusions with underlying atelectasis. 3. Nonspecific mediastinal lymph nodes. ACT 112: Negative or not required by law. Electronically signed by: Nain Petersen M.D. 02/12/2023 12:42 PM
[2023-02-12] MEDS ORDERED: PHENobarbital sodium 65 MG/ML VIAL IV STA ×3 (12:49→13:21)
[2023-02-12] MEDS ORDERED: PHENobarbitaL 30 MG TAB PO SCH (14:00)
[2023-02-12] MEDS ORDERED: ACETAMINOPHEN 325 MG TAB PO PRN (15:01)
[2023-02-12] MEDS ORDERED: INFLUENZA VACCINE HIGH-DOSE (HD-IIV4) PF 65+ 0.7mL SYR IM ONE (15:13)
[2023-02-12] MEDS ORDERED: LORazepam 0.5 MG TAB PO PRN (18:19)
[2023-02-12 19:26] LABS: Partial Thromboplastin Ratio > 4.9
[2023-02-12] MEDS ORDERED: PHENobarbital PO Alcohol Withdrawal PO SCH (20:00)
[2023-02-12] MEDS: PHENobarbitaL 30 MG TAB PO SCH (20:51)
[2023-02-12 20:59] LABS: Partial Thromboplastin Time > 139.0 Seconds (21.0-31.0)
[2023-02-12 22:05] LABS: Partial Thromboplastin Ratio 1.9
[2023-02-12 22:28] LABS: Partial Thromboplastin Time 54.1 Seconds (21.0-31.0)
[2023-02-13] MEDS: PHENobarbitaL 30 MG TAB PO SCH ×3 (04:06→23:21)
[2023-02-13 04:28] LABS: Basophils # (auto) 0.01 K/uL (0.00-0.20); Basophils % (auto) 0.2 %; Eosinophils # (auto) 0.04 K/uL (0.00-0.50); Eosinophils % (auto) 0.8 %; Hematocrit (blood only) 35.3 % (42.0-52.0); Hemoglobin 12.6 g/dl (14.0-18.0); Immature Granulocytes # (auto) 0.02 K/uL (0.01-0.20); Immature Granulocytes % (auto) 0.4 %; Lymphocytes # (auto) 1.42 K/uL (1.20-3.40); Lymphocytes % (auto) 27.4 %; Mean Corpuscular Hemoglobin 36.8 pg (25.0-34.0); Mean Corpuscular Hgb Conc 35.7 g/dL (32.0-36.0); Mean Corpuscular Volume 103.2 fL (80.0-100.0); Mean Platelet Volume 11.5 fL (9.4-12.4); Monocytes # (auto) 0.63 K/uL (0.11-0.59); Monocytes % (auto) 12.2 %; Neutrophils # (auto) 3.06 K/uL (1.40-6.50); Platelet Count 79 K/uL (130-400); RDW Coefficient of Variation 14.2 % (11.5-14.5); RDW Standard Deviation 53.1 fL (36.4-46.3); Red Blood Count 3.42 M/uL (4.70-6.10); White Blood Count 5.18 K/ul (4.8-10.8)
[2023-02-13 04:45] LABS: BUN Creatinine Ratio 15.5 (10-20); Calcium 7.3 mg/dl (8.6-10.3); Creatinine Clr Calc Pharmacy 71.2 ml/min; Est GFR (African American) 88.8 ml/min; Est GFR (Non-African American) 76.6 ml/min; Potassium 3.2 mmol/L (3.5-5.1)
[2023-02-13] MEDS ORDERED: POTASSIUM CHLORIDE CRTAB 20 MEQ TABCR PO ONE (05:19)
[2023-02-13 05:25] LABS: Partial Thromboplastin Ratio 1.9
[2023-02-13] MEDS: MAGNESIUM SULFATE / D5W 1 GM/100 ML BAG IV SCH ×4 (05:39→11:27)
[2023-02-13 06:15] LABS: Partial Thromboplastin Time 54.9 Seconds (21.0-31.0)
[2023-02-13] MEDS ORDERED: POTASSIUM CHLORIDE CRTAB 20 MEQ TABCR PO STA (07:12)
[2023-02-13] MEDS: NSS + 20MEQ KCL 20 MEQ/1,000 ML BAG IV SCH ×2 (07:57→20:11)
[2023-02-13] MEDS: THIAMINE HCL 500 MG in SODIUM CHLORIDE 0.9% 50 ML IV SCH ×3 (07:58→23:21)
[2023-02-13] MEDS: FOLIC ACID 1 MG TAB PO SCH (07:59)
[2023-02-13] MEDS: HEPARIN SODIUM/DEXTROSE 25,000 UNITS/500 ML BAG IV SCH (08:09)
[2023-02-13] MEDS ORDERED: THIAMINE HCL 100 MG TAB PO SCH (09:00)
--- NOTE | 2023-02-13 09:07 | Ultrasound Report ---
BILATERAL LOWER EXTREMITY VENOUS DOPPLER CLINICAL HISTORY: saddle PE; eval DVT COMPARISON STUDY: Bilateral lower extremity venous Doppler ultrasound February 16, 2017. TECHNIQUE: Sonography of the deep venous system of the bilateral lower extremities was performed. Co mpression and augmentation were evaluated. FINDINGS: There is deep venous thrombus within the right popliteal, posterior tibial and peroneal vei ns. There is no deep venous thrombus within the left lower extremity. IMPRESSION: 1. Deep venous thrombus within the right popliteal, posterior tibial and peroneal veins. 2. No deep venous thrombus within the left lower extremity. ACT 112: Negative or not required by law. Electronically signed by: Elijah Larry M.D. 02/13/2023 9:06 AM
--- NOTE | 2023-02-13 16:56 | XCELERA ---
[id number]
--- NOTE | 2023-02-13 21:10 | Hospitalist Progress Note ---
Date of Service February 13, 2023 Assessment & Plan (1) Saddle pulmonary embolus: Plan: Saddle pulmonary embolus with numerous b/l PEs in main PAs along with segmental and sub-segmental arteries. Submassive - no shock, tachycardia, etc. Suspect PEs are subacute - he has been short of breath for several weeks. Likely was throwing PEs during that time frame. Dopplers today + RLE DVT. Although patient reports he was not sedentary until his breathing got worse a few weeks ago, his daughter reports that he is in fact very sedentary on most days for a long period of time. Echo today returned with acute cor pulmonale but preserved LV function. Plan - * gentle IV fluids - he is preload dependent * cont heparin drip * pulmonary consult in am * lovenox/coumadin when ready to leave hospital vs DOAC? Alcohol use complicates the matter. Will try to get the opinion of Dr Hilton from the anticoagulation clinic. Certainly a DOAC would be easier from a compliance standpoint * although he has been sedentary, I would still pursue occult malignancy w/u in the future - including but not limited to EGD, colonoscopy, PSA, etc - to r/o hypercoagulability from cancer * he denies any recent COVID infection 2017 - PE event. Prothrombin gene mutation, factor V Leiden mutation, homocysteine level - negative or normal. Protein C and S levels were mildly low in the setting of his acute VTE. Protein C and Protein S levels were repeated 06/2017 OFF of anticoagulation - normal levels (91, 69 respectively). Anti-thrombin 3 activity was slightly low but checked at the time of his 2017 VTE. Antiphospholipid ab's were negative. Thus, no genetic or heritable cause found. Completed 3 months of coumadin in 2017 for his VTE event. (2) Acute cor pulmonale due to saddle embolus of pulmonary artery: Plan: echo c/w acute cor pulmonale fortunately he is hemodynamically stable with normal BP he is not hypoxic will need to follow with cardiology and pulmonary as outpatient for his submassive PEs & acute cor pulmonale (3) Right leg DVT: Plan: as seen on dopplers today cont heparin drip (4) Alcoholism: Plan: For etoh withdrawal prophylaxis -- Phenobarbital 20 mg IV load x1 yesterday, followed by 60 mg TID x 1 day, 30 mg TID x 1 day, 30 mg twice daily for 1 day, then 30 mg daily for 1 day, then stop Continue AWSS monitoring Thiamine / folate supplementation Telemetry (5) Pre-syncope: Plan: 2nd to submassive PEs and acute cor pulmonale Trend BPs (6) Hypothyroidism: Plan: Previously on Synthroid now no longer on such Repeat TFTs am (7) Elevated troponin: Plan: 2nd to right heart strain from submassive PEs BNP also elevated consistent with right heart strain he has no evidence of pulmonary edema no evidence of ischemia (8) Hypomagnesemia: Plan: replace with IV mag repeat level am (9) Hypokalemia: Plan: replace repeat level am (10) Macrocytic anemia: Plan: Check TSH Check B12 Trend cbc (11) Thrombocytopenia: Plan: 2nd to direct toxic effects of alcohol Stable platelet count thus far No evidence of bleeding Proceed with heparin drip cautiously Plan updated pt's daughter Rubina Mix - [phone] - evening of 02/13 care d/w Dr Graham - pulmonary Admission and Anticipated Discharge Date Admission Date: February 12, 2023 Subjective patient resting in bed comfortably reports dyspnea and HEATH for 2-3 weeks before coming to the hospital then he had syncope recently at home all of the above ultimately prompted coming to [facility] denies any chest pain or pleuritic pain denies dyspnea at rest no longer on NC O2 denies recent surgery denies recent prolonged travel he denies being sedentary chronically - only sedentary last 2-3 weeks per his daughter she reports he has been sedentary for months good appetite of late no weight loss has never had colonoscopy or EGD pt reports heavy vodka use - gallon every few days denies ever having withdrawal Review of Systems Review of Systems: cv - no orthopnea; denies edema of legs musculo - no recent calf pain or thigh pain pulm - no cough GI - no abd pain Physical Exam Physical Exam: gen - NAD, no respiratory distress neck - JVD present to the jaw mouth - MMM heart - RRR, s1 s2, no murmur lungs - CTA b/l abd - soft NT ND BS+; no HSM ext - no edema, pulses 2+ b/l musculo - right leg is larger than left leg; scar over right knee neuro - no signs of etoh withdrawal Results & Data Results & Data Vital Signs (Past 12 Hours) Vital Signs Temp Pulse Resp BP Pulse Ox O2 Del Method 02/13/23 20:00 90 24 96 02/13/23 19:46 92 H 28 H 95 02/13/23 19:46 36.7 C 139/90 02/13/23 18:00 97 H 26 H 97 02/13/23 16:02 86 18 93 Room Air 02/13/23 16:02 132/100 02/13/23 16:00 84 18 94 02/13/23 16:08 36.9 C 02/13/23 16:00 89 02/13/23 12:00 89 24 97 02/13/23 11:29 132/85 02/13/23 11:29 89 23 92 Room Air 02/13/23 11:58 36.8 C Laboratory Results Laboratory Results - last 24 hr 02/13/23 02/13/23 02/13/23 04:12 04:12 04:12 WBC 5.18 RBC 3.42 L Hgb 12.6 L Hct 35.3 L MCV 103.2 H MCH 36.8 H MCHC 35.7 RDW Std Deviation 53.1 H RDW Coeff of Sandra 14.2 Plt Count 79 L MPV 11.5 Immature Gran % (Auto) 0.4 Neut % (Auto) 59.0 Lymph % (Auto) 27.4 [place] % (Auto) 12.2 Eos % (Auto) 0.8 Baso % (Auto) 0.2 Neut # (Auto) 3.06 Lymph # (Auto) 1.42 [place] # (Auto) 0.63 H Eos # (Auto) 0.04 Baso # (Auto) 0.01 Immature Gran # (Auto) 0.02 APTT 54.9 H* PTT Ratio 1.9 Sodium 134 L Potassium 3.2 L Chloride 96 L Carbon Dioxide 26 Anion Gap 12 H BUN 15 Creatinine 0.97 D Est Cr Clr Drug Dosing 71.2 Est GFR ( Amer) 88.8 Est GFR (Non-Af Amer) 76.6 BUN/Creatinine Ratio 15.5 Glucose 105 H Calcium 7.3 L Magnesium 1.0 L Diagnostic Findings Venous Doppler Study 02/13/23 07:13 BILATERAL LOWER EXTREMITY VENOUS DOPPLER CLINICAL HISTORY: saddle PE; eval DVT COMPARISON STUDY: Bilateral lower extremity venous Doppler ultrasound February 16, 2017. TECHNIQUE: Sonography of the deep venous system of the bilateral lower extremi ties was performed. Compression and augmentation were evaluated. FINDINGS: There is deep venous thrombus within the right popliteal, posterior tibial and peroneal veins. There is no deep venous thrombus within the left lower extremity. IMPRESSION: 1. Deep venous thrombus within the right popliteal, posterior tibial and peroneal veins. 2. No deep venous thrombus within the left lower extremity. ACT 112: Negative or not required by law. Electronically signed by: Elijah Larry M.D. 02/13/2023 9:06 AM PG Care Time/CCT Total # of Minutes Spent Total Time Spent with Patient: Total time spent is greater than 50% in coordination of care (as documented) at patient's floor/unit and/or counseling patient: Coding Level of Care Code 12548 SUB INP/OBS CARE 3/50MIN Diagnoses Saddle pulmonary embolus I26.92 Acute cor pulmonale due to saddle embolus of pulmonary artery I26.02 Right leg DVT I82.401 Alcoholism F10.20 Pre-syncope R55 Hypothyroidism E03.9 Elevated troponin R79.89 Hypomagnesemia E83.42 Hypokalemia E87.6 Macrocytic anemia D53.9 Thrombocytopenia D69.6
[2023-02-14 04:24] LABS: BUN Creatinine Ratio 15.2 (10-20); Calcium 7.2 mg/dl (8.6-10.3); Creatinine Clr Calc Pharmacy 87.4 ml/min; Est GFR (African American) 102.5 ml/min; Est GFR (Non-African American) 88.5 ml/min; Magnesium 1.8 mg/dl (1.7-2.4); Potassium 3.7 mmol/L (3.5-5.1)
[2023-02-14 04:31] LABS: Basophils # (auto) 0.01 K/uL (0.00-0.20); Basophils % (auto) 0.3 %; Eosinophils # (auto) 0.07 K/uL (0.00-0.50); Eosinophils % (auto) 2.1 %; Hematocrit (blood only) 35.2 % (42.0-52.0); Immature Granulocytes # (auto) 0.02 K/uL (0.01-0.20); Immature Granulocytes % (auto) 0.6 %; Lymphocytes # (auto) 1.21 K/uL (1.20-3.40); Lymphocytes % (auto) 36.9 %; Mean Corpuscular Hemoglobin 36.3 pg (25.0-34.0); Mean Corpuscular Hgb Conc 34.1 g/dL (32.0-36.0); Mean Corpuscular Volume 106.3 fL (80.0-100.0); Monocytes # (auto) 0.48 K/uL (0.11-0.59); Monocytes % (auto) 14.6 %; Neutrophils # (auto) 1.49 K/uL (1.40-6.50); Neutrophils % (auto) 45.5 %; Platelet Count 78 K/uL (130-400); RDW Coefficient of Variation 14.5 % (11.5-14.5); RDW Standard Deviation 55.6 fL (36.4-46.3); Red Blood Count 3.31 M/uL (4.70-6.10); White Blood Count 3.28 K/ul (4.8-10.8)
[2023-02-14 04:39] LABS: Thyroid Stimulating Hormone 4.867 uIu/ml (0.300-4.500)
[2023-02-14 04:51] LABS: Partial Thromboplastin Ratio 2.2
[2023-02-14 05:04] LABS: Partial Thromboplastin Time 61.5 Seconds (21.0-31.0)
[2023-02-14 05:15] LABS: T4 Free Thyroxine 1.11 ng/dl (0.61-1.60)
--- NOTE | 2023-02-14 06:49 | Electrocardiogram Report ---
Test Reason : Blood Pressure : / mmHG Vent. Rate : 119 BPM Atrial Rate : 119 BPM P-R Int : 144 ms QRS Dur : 098 ms QT Int : 416 ms P-R-T Axes : 067 060 237 degrees QTc Int : 585 ms Sinus tachycardia with Premature supraventricular complexes Incomplete right bundle branch block Prolonged QT Abnormal ECG When compared with ECG of 16-FEB-2017 09:12, Premature supraventricular complexes are now Present Incomplete right bundle branch block is now Present Confirmed by Gt Cortez ([id number]) on 02/14/2023 6:49:05 AM Referred By: Confirmed By:Gt Cortez
--- NOTE | 2023-02-14 06:54 | Electrocardiogram Report ---
Test Reason : Blood Pressure : / mmHG Vent. Rate : 100 BPM Atrial Rate : 100 BPM P-R Int : 118 ms QRS Dur : 092 ms QT Int : 464 ms P-R-T Axes : 041 052 -80 degrees QTc Int : 598 ms Sinus rhythm with occasional Premature ventricular complexes T wave abnormality, consider inferior ischemia T wave abnormality, consider anterolateral ischemia Prolonged QT Abnormal ECG When compared with ECG of 12-FEB-2023 10:19, (unconfirmed) Premature ventricular complexes are now Present Premature supraventricular complexes are no longer Present Confirmed by Gt Cortez ([id number]) on 02/14/2023 6:54:31 AM Referred By: REFERRED SELF Confirmed By:Gt Cortez
[2023-02-14] MEDS: THIAMINE HCL 500 MG in SODIUM CHLORIDE 0.9% 50 ML IV SCH ×3 (07:32→23:52)
[2023-02-14] MEDS: HEPARIN SODIUM/DEXTROSE 25,000 UNITS/500 ML BAG IV SCH (07:32)
[2023-02-14] MEDS: FOLIC ACID 1 MG TAB PO SCH (07:33)
[2023-02-14] MEDS: NSS + 20MEQ KCL 20 MEQ/1,000 ML BAG IV SCH ×2 (08:05→22:07)
--- NOTE | 2023-02-14 09:20 | Pulmonary Consultation ---
Date of Consultation February 14, 2023 Assessment & Plan (1) Acute cor pulmonale due to saddle embolus of pulmonary artery: He remains hemodynamically stable and does not have any significant hypoxemia at rest. He is not a candidate for systemic thrombolysis at this time. Should his clinical presentation deteriorate, can consider systemic thrombolysis. His echo findings are noted and he appears to have cor pulmonale secondary to the extent of his pulmonary embolism burden. Recommend repeating an echo in 2 to 3 months. Recommend hematology consultation as an outpatient given recurrent unprovoked pulmonary embolisms. He would be a candidate for lifelong anticoagulation. He is currently receiving IV heparin and has had a significant drop in his platelet count which may be secondary to hemodilution and alcoholism. His 4 T score is relatively low. We will check a PF4 antibody and serotonin release assay. We will maintain on heparin for the time being unless there is signs of thrombosis or bleeding. I recommend 5 days of IV anticoagulation and monitoring in the hospital and then transitioning to oral anticoagulant therapy upon discharge. (2) Right leg DVT: Continue anticoagulation as above. (3) Thrombocytopenia: See comments regarding thrombocytopenia as above. (4) Alcoholism: Currently on alcohol withdrawal protocol and has received prophylactic phenobarbital. Tolerating this well. Plan Thank you for allowing me to participate in the care of the patient. Please call with questions. History of Present Illness Reason for Consultation: Large pulmonary embolism Attending Physician: Nick Ayala MD History of Present Illness 73-year-old male who was admitted 02/12/2023 due to 1 month of presyncope and dyspnea. He follows with cardiology as an outpatient. He has been having increased fatigability and shortness of breath with mild exertion. He underwent a chest CTA 02/12/2023 which revealed a saddle pulmonary embolism with evidence of right heart strain. Small bilateral effusions were noted. Echocardiogram completed on the revealed normal LVEF with reduced RV systolic function and dilated RV. In September 2021 his RV function was determined to be normal. He has remained hemodynamically stable and has remained on room air. He is currently receiving phenobarbital and undergoing the alcohol withdrawal protocol due to history of severe alcoholism. He had a similar pulm embolism in 2017 with a hypercoagulable work-up which was unremarkable. He completed 3 months of warfarin at that time. Additionally he had a lower extremity ultrasound which revealed DVT within the right popliteal, posterior tibial and peroneal veins. No DVT in the left lower extremity. Condition complicating matters has been an ongoing thrombocytopenia which was thought to be related to alcoholism. He has mild anemia as well with a hemoglobin of 12. No clear provoking factors for pulmonary embolism. He is a severe alcoholic and reportedly drinks a gallon of vodka every few days. Patient denies any shortness of breath or chest pain. He does endorse balance issues when standing up to use the bedside commode. He denies any recent fevers, chills or night sweats. He denies any lower extremity pain or swelling. Allergies Allergy/AdvReac Type Severity Reaction Status Date / Time No Known Allergies Allergy Unverified 10/27/21 13:05 Home Medications Medication Instructions Recorded Confirmed Type multivitamin 1 tab PO DAILY 02/12/23 02/12/23 History Patient History Medical History (Updated 02/14/23 @ 00:53 by Sincere Jonas MD) Alcoholism Dizziness Hearing loss Left asymmetrical SNHL Liver lesion Pre-syncope Pulmonary emboli Ribs, multiple fractures Sensorineural hearing loss (SNHL) of both ears Umbilical hernia with obstruction (03/23/12) Surgical History (Reviewed 11/27/21 @ 19:27 by Suresh Cook Jr, MD, [facility]) History of hernia repair Family History (Reviewed 11/27/21 @ 19:27 by Suresh Cook Jr, MD, [facility]) Other Myocardial infarction Denies family history of Ovarian cancer Prostate cancer Breast cancer Colorectal cancer Social History (Reviewed 11/27/21 @ 19:27 by Suresh Cook Jr, MD, [facility]) Smoking Status: Never smoker Second Hand Exposure: No; Do You Dip or Chew Tobacco: No; Tobacco Cessation Education Requested by Patient: No Hx Alcohol Use: Yes Alcohol type: hard liquor Alcohol Intake Frequency: 4 or More x per/Week Alcohol Intake Frequency Comment: 1 gallon of vodka a week Hx Substance Use: Yes Last Used Substance: Days (ago) Preferred Language: Bulgarian Communication Ability: Effective Visual Impairment: No Limitations Hearing Ability: Use of Hearing Aid Spool Hauler Required: No Beliefs That Will Affect Care: None marital status: Current Living Situation: Spouse current occupational status: retired Feels Safe at Home: Yes Safety Concerns: Feels Safe At This Time Childhood Exposure to Second-Hand Smoke: Yes Dental Care, Regularly: No Physical Activity Frequency: 1-2 Times per Week Assistive Devices: Denture - Upper, Glasses and Hearing Aid - Bilateral Review of Systems Review of Systems: All systems reviewed & are unremarkable except as noted in HPI & below Physical Exam Physical Exam: Constitutional: Patient appears to be of their stated age. Patient is in no apparent distress. Patient is well-developed. Eyes: Pupils are equal round and reactive to light. Conjunctivae are normal. Anicteric sclera. Ears nose, mouth and throat: Mallampati class 2. Normal posterior oropharynx. Uvula is midline. Neck: Trachea is midline. Visual inspection is normal. Respiratory: Clear to auscultation bilaterally. No use of accessory muscles. No significant clubbing noted. Cardiovascular: Regular rate and rhythm. No murmurs. No edema. Gastrointestinal: Normal bowel sounds, soft, nontender and nondistended. No hepatosplenomegaly noted. Musculoskeletal: No cyanosis. Patient is able to move all extremities. Strength is 5 out of 5 in the upper and lower extremities. Skin: No rashes, warm dry and intact. Neurologic: No obvious focal neurological deficits seen. Psychiatric: Alert and oriented x3 with a euthymic affect. Results & Data Results & Data Vital Signs (Past 12 Hours) Vital Signs Temp Pulse Resp BP BP Pulse Ox 02/14/23 07:00 83 16 94 02/14/23 08:03 37.1 C 156/101 H 02/14/23 03:18 83 26 H 93 02/14/23 03:18 36.9 C 143/102 H 02/14/23 03:00 80 28 H 91 02/14/23 00:00 87 28 H 90 02/14/23 00:00 86 02/13/23 23:23 87 24 92 02/13/23 23:23 37.3 C 133/93 02/13/23 22:00 90 29 H 93 PG Care Time/CCT Total # of Minutes Spent Total Time Spent with Patient: Total time spent is greater than 50% in coordination of care (as documented) at patient's floor/unit and/or counseling patient: Coding Level of Care Code 95373 INT INP/OBS CARE 3/75MIN Diagnoses Acute cor pulmonale due to saddle embolus of pulmonary artery I26.02 Right leg DVT I82.401 Thrombocytopenia D69.6 Alcoholism F10.20
[2023-02-14] MEDS: PHENobarbitaL 30 MG TAB PO SCH (11:38)
--- NOTE | 2023-02-14 17:17 | Hospitalist Progress Note ---
Date of Service February 14, 2023 Assessment & Plan (1) Saddle pulmonary embolus: Plan: Saddle pulmonary embolus with numerous b/l PEs in main PAs along with segmental and sub-segmental arteries. Submassive - no shock, tachycardia, etc. Suspect PEs are subacute - he has been short of breath for several weeks. Likely was throwing PEs during that time frame. Dopplers + RLE DVT. Although patient reports he was not sedentary until his breathing got worse a few weeks ago, his daughter reports that he is in fact very sedentary on most days for a long period of time. Echo returned with acute cor pulmonale but preserved LV function. Plan - * gentle IV fluids - he is preload dependent * cont heparin drip for total of 5 days. Today is day 2. * Pulmonary on board. Agrees with the plan. * Will continue heparin drip and then switch to p.o. Eliquis at the time of discharge. * although he has been sedentary, I would still pursue occult malignancy w/u in the future - including but not limited to EGD, colonoscopy, PSA, etc - to r/o hypercoagulability from cancer. Will need outpatient hematology follow-up * he denies any recent COVID infection 2017 - PE event. Prothrombin gene mutation, factor V Leiden mutation, homocysteine level - negative or normal. Protein C and S levels were mildly low in the setting of his acute VTE. Protein C and Protein S levels were repeated 06/2017 OFF of anticoagulation - normal levels (91, 69 respectively). Anti-thrombin 3 activity was slightly low but checked at the time of his 2017 VTE. Antiphospholipid ab's were negative. Thus, no genetic or heritable cause found. Completed 3 months of coumadin in 2017 for his VTE event. Will need outpatient hematology follow-up (2) Acute cor pulmonale due to saddle embolus of pulmonary artery: Plan: echo c/w acute cor pulmonale fortunately he is hemodynamically stable with normal BP he is not hypoxic (3) Right leg DVT: Plan: as seen on dopplers today cont heparin drip (4) Alcoholism: Plan: For etoh withdrawal prophylaxis -- Phenobarbital 20 mg IV load x1, followed by 60 mg TID x 1 day, 30 mg TID x 1 day, 30 mg twice daily for 1 day, then 30 mg daily for 1 day, then stop Continue AWSS monitoring Thiamine / folate supplementation Telemetry (5) Pre-syncope: Plan: 2nd to submassive PEs and acute cor pulmonale Trend BPs (6) Hypothyroidism: Plan: Previously on Synthroid now no longer on such (7) Elevated troponin: Plan: 2nd to right heart strain from submassive PEs BNP also elevated consistent with right heart strain he has no evidence of pulmonary edema no evidence of ischemia (8) Hypomagnesemia: Plan: replace with IV mag (9) Hypokalemia: Plan: replace (10) Macrocytic anemia: (11) Thrombocytopenia: Plan: 2nd to direct toxic effects of alcohol Stable platelet count thus far No evidence of bleeding Proceed with heparin drip cautiously Plan updated family at the bedside Admission and Anticipated Discharge Date Admission Date: February 12, 2023 Subjective Patient is accompanied by his family in the room. He denies any chest pain, shortness of breath. Review of Systems Review of Systems: All systems reviewed & are unremarkable except as noted in Subjective Physical Exam Physical Exam: General: Awake, conversant Heart: S1, S2/regular rate and rhythm, no murmur rubs or gallops Lungs: Clear to auscultation bilaterally. Normal effort Abdomen: Soft/nontender/nondistended. No hepatosplenomegaly Extremities: No clubbing/cyanosis. No edema Behavior: Appropriate, cooperative Results & Data Results & Data Vital Signs (Past 12 Hours) Vital Signs Temp Pulse Pulse Resp BP Pulse Ox O2 Del Method 02/14/23 15:52 36.7 C 80 18 159/94 H 96 Room Air 02/14/23 12:00 85 20 96 02/14/23 11:39 38.9 C H 85 18 131/99 95 Room Air 02/14/23 10:00 87 22 96 Room Air 02/14/23 07:00 83 16 94 02/14/23 08:03 37.1 C 156/101 H Laboratory Results Abnormal lab results 02/12/23 02/14/23 02/14/23 Range/Units 10:20 03:17 03:17 WBC 3.28 L (4.8-10.8) K/ul RBC 3.31 L (4.70-6.10) M/uL Hgb 12.0 L (14.0-18.0) g/dl Hct 35.2 L (42.0-52.0) % MCV 106.3 H (80.0-100.0) fL MCH 36.3 H (25.0-34.0) pg RDW Std Deviation 55.6 H (36.4-46.3) fL Plt Count 78 L (130-400) K/uL APTT (21.0-31.0) Seconds Sodium 135 L (136-145) mmol/L Glucose 100 H (70-99(Fasting)) mg/dl Calcium 7.2 L (8.6-10.3) mg/dl Vitamin B12 (180-914) pg/ml TSH 4.867 H (0.300-4.500) uIu/ml Hepatitis C Ab (EIA) REACTIVE A (NON-REACTIVE) 02/14/23 02/14/23 Range/Units 03:17 03:21 WBC (4.8-10.8) K/ul RBC (4.70-6.10) M/uL Hgb (14.0-18.0) g/dl Hct (42.0-52.0) % MCV (80.0-100.0) fL MCH (25.0-34.0) pg RDW Std Deviation (36.4-46.3) fL Plt Count (130-400) K/uL APTT 61.5 H* (21.0-31.0) Seconds Sodium (136-145) mmol/L Glucose (70-99(Fasting)) mg/dl Calcium (8.6-10.3) mg/dl Vitamin B12 155 L (180-914) pg/ml TSH (0.300-4.500) uIu/ml Hepatitis C Ab (EIA) (NON-REACTIVE) PG Care Time/CCT Total # of Minutes Spent Total Time Spent with Patient: Total time spent is greater than 50% in coordination of care (as documented) at patient's floor/unit and/or counseling patient: Coding Level of Care Code 67331 SUB INP/OBS CARE MIN Diagnoses Saddle pulmonary embolus I26.92 Acute cor pulmonale due to saddle embolus of pulmonary artery I26.02 Right leg DVT I82.401 Alcoholism F10.20 Pre-syncope R55 Hypothyroidism E03.9 Elevated troponin R79.89 Hypomagnesemia E83.42 Hypokalemia E87.6 Macrocytic anemia D53.9 Thrombocytopenia D69.6
[2023-02-15 04:36] LABS: Basophils # (auto) 0.02 K/uL (0.00-0.20); Basophils % (auto) 0.6 %; Eosinophils # (auto) 0.07 K/uL (0.00-0.50); Hematocrit (blood only) 34.3 % (42.0-52.0); Hemoglobin 11.9 g/dl (14.0-18.0); Immature Granulocytes # (auto) 0.01 K/uL (0.01-0.20); Immature Granulocytes % (auto) 0.3 %; Lymphocytes # (auto) 1.37 K/uL (1.20-3.40); Lymphocytes % (auto) 38.4 %; Mean Corpuscular Hgb Conc 34.7 g/dL (32.0-36.0); Mean Corpuscular Volume 106.5 fL (80.0-100.0); Mean Platelet Volume 11.6 fL (9.4-12.4); Monocytes # (auto) 0.54 K/uL (0.11-0.59); Monocytes % (auto) 15.1 %; Neutrophils # (auto) 1.56 K/uL (1.40-6.50); Neutrophils % (auto) 43.6 %; Platelet Count 102 K/uL (130-400); RDW Coefficient of Variation 14.3 % (11.5-14.5); RDW Standard Deviation 56.2 fL (36.4-46.3); Red Blood Count 3.22 M/uL (4.70-6.10); White Blood Count 3.57 K/ul (4.8-10.8)
[2023-02-15 04:59] LABS: BUN Creatinine Ratio 10.9 (10-20); Calcium 7.4 mg/dl (8.6-10.3); Creatinine Clr Calc Pharmacy 107.9 ml/min; Est GFR (African American) 111.8 ml/min; Est GFR (Non-African American) 96.5 ml/min; Potassium 4.2 mmol/L (3.5-5.1)
[2023-02-15 05:15] LABS: Partial Thromboplastin Ratio 1.8
[2023-02-15 05:19] LABS: Partial Thromboplastin Time 51.5 Seconds (21.0-31.0)
[2023-02-15] MEDS: HEPARIN SODIUM/DEXTROSE 25,000 UNITS/500 ML BAG IV SCH (08:26)
[2023-02-15] MEDS: FOLIC ACID 1 MG TAB PO SCH (08:27)
[2023-02-15] MEDS: NSS + 20MEQ KCL 20 MEQ/1,000 ML BAG IV SCH (11:16)
[2023-02-15] MEDS ORDERED: PHENobarbitaL 30 MG TAB PO SCH (12:00)
--- NOTE | 2023-02-15 16:33 | Hospitalist Progress Note ---
Date of Service February 15, 2023 Assessment & Plan (1) Saddle pulmonary embolus: Plan: Saddle pulmonary embolus with numerous b/l PEs in main PAs along with segmental and sub-segmental arteries Secondary to DVT from right popliteal, posterior tibial and peroneal veins Submassive - no shock, tachycardia, etc. Suspect PEs are subacute - he has been short of breath for several weeks. Likely was throwing PEs during that time frame. Dopplers + RLE DVT. Although patient reports he was not sedentary until his breathing got worse a few weeks ago, his daughter reports that he is in fact very sedentary on most days for a long period of time. Echo returned with acute cor pulmonale but preserved LV function. Plan - * discontinue IV fluids * cont heparin drip for total of 5 days. Today is day 3. * Pulmonary on board. Agrees with the plan. * Will continue heparin drip and then switch to p.o. Eliquis at the time of discharge. * although he has been sedentary, I would still pursue occult malignancy w/u in the future - including but not limited to EGD, colonoscopy, PSA, etc - to r/o hypercoagulability from cancer. Will need outpatient hematology follow-up * he denies any recent COVID infection 2017 - PE event. Prothrombin gene mutation, factor V Leiden mutation, homocysteine level - negative or normal. Protein C and S levels were mildly low in the setting of his acute VTE. Protein C and Protein S levels were repeated 06/2017 OFF of anticoagulation - normal levels (91, 69 respectively). Anti-thrombin 3 activity was slightly low but checked at the time of his 2017 VTE. Antiphospholipid ab's were negative. Thus, no genetic or heritable cause found. Completed 3 months of coumadin in 2017 for his VTE event. Will need outpatient hematology follow-up (2) Acute cor pulmonale due to saddle embolus of pulmonary artery: Plan: echo c/w acute cor pulmonale fortunately he is hemodynamically stable with normal BP he is not hypoxic (3) Right leg DVT: Plan: as seen on dopplers cont heparin drip (4) Alcoholism: Plan: For etoh withdrawal prophylaxis -- Phenobarbital 20 mg IV load x1, followed by 60 mg TID x 1 day, 30 mg TID x 1 day, 30 mg twice daily for 1 day, then 30 mg daily for 1 day, then stop Continue AWSS monitoring. Doing well overall from an alcohol withdrawal standpoint. Thiamine / folate supplementation Telemetry (5) Pre-syncope: Plan: 2nd to submassive PEs and acute cor pulmonale Trend BPs (6) Hypothyroidism: Plan: Previously on Synthroid now no longer on such (7) Elevated troponin: Plan: 2nd to right heart strain from submassive PEs BNP also elevated consistent with right heart strain he has no evidence of pulmonary edema no evidence of ischemia (8) Hypomagnesemia: Plan: Replaced (9) Hypokalemia: Plan: replaced (10) Macrocytic anemia: (11) Thrombocytopenia: Plan: 2nd to direct toxic effects of alcohol Stable platelet count thus far No evidence of bleeding Proceed with heparin drip cautiously Plan updated family at the bedside. Likely discharge 02/17 Admission and Anticipated Discharge Date Admission Date: February 12, 2023 Subjective Patient feels well. Denies chest pain, shortness of breath, dizziness. Daughter at the bedside. Review of Systems Review of Systems: All systems reviewed & are unremarkable except as noted in Subjective Physical Exam Physical Exam: General: Awake, conversant Heart: S1, S2/regular rate and rhythm, no murmur rubs or gallops Lungs: Clear to auscultation bilaterally. Normal effort Abdomen: Soft/nontender/nondistended. No hepatosplenomegaly Extremities: No clubbing/cyanosis. No edema Behavior: Appropriate, cooperative Results & Data Results & Data Vital Signs (Past 12 Hours) Vital Signs Temp Pulse Pulse Resp BP Pulse Ox O2 Del Method 02/15/23 16:12 37.1 C 83 24 148/98 H 94 Room Air 02/15/23 12:00 36.8 C 95 H 24 153/99 H 95 Room Air 02/15/23 08:00 37.0 C 87 24 130/94 94 Room Air 02/15/23 08:00 78 02/15/23 09:09 Room Air Laboratory Results Abnormal lab results 02/15/23 02/15/23 02/15/23 Range/Units 03:49 03:49 03:49 WBC 3.57 L (4.8-10.8) K/ul RBC 3.22 L (4.70-6.10) M/uL Hgb 11.9 L (14.0-18.0) g/dl Hct 34.3 L (42.0-52.0) % MCV 106.5 H (80.0-100.0) fL MCH 37.0 H (25.0-34.0) pg RDW Std Deviation 56.2 H (36.4-46.3) fL Plt Count 102 L (130-400) K/uL APTT 51.5 H* (21.0-31.0) Seconds Calcium 7.4 L (8.6-10.3) mg/dl PG Care Time/CCT Total # of Minutes Spent Total Time Spent with Patient: Total time spent is greater than 50% in coordination of care (as documented) at patient's floor/unit and/or counseling patient: Coding Level of Care Code 68506 SUB INP/OBS CARE 235MIN Diagnoses Saddle pulmonary embolus I26.92 Acute cor pulmonale due to saddle embolus of pulmonary artery I26.02 Right leg DVT I82.401 Alcoholism F10.20 Pre-syncope R55 Hypothyroidism E03.9 Elevated troponin R79.89 Hypomagnesemia E83.42 Hypokalemia E87.6 Macrocytic anemia D53.9 Thrombocytopenia D69.6
--- NOTE | 2023-02-15 17:21 | Pulmonology Progress Note ---
Date of Service February 15, 2023 Assessment & Plan (1) Acute cor pulmonale due to saddle embolus of pulmonary artery: Plan: His platelet count is improving. His HIT panel is pending. Dyspnea has improved as well. Continue IV heparin for 5 days total and then transition to DOAC. Follow-up echo in 3 months. No further recommendations at this time. Appreciate the opportunity to be involved in this patient's care. Please call with questions. Thank you. (2) Right leg DVT: Plan: Continue anticoagulation as above. (3) Thrombocytopenia: Plan: Improving. (4) Alcoholism: Plan: Currently on alcohol withdrawal protocol and has received prophylactic phenoba rbital. Tolerating this well. Admission and Anticipated Discharge Date Admission Date: February 12, 2023 Subjective Patient seen and examined. He notes that he has been able to ambulate around his room. Denies any dizziness, shortness of breath, headaches, fevers, chills or night sweats. Review of Systems Review of Systems: All systems reviewed & are unremarkable except as noted in HPI & below Physical Exam Physical Exam: Constitutional: Patient appears to be of their stated age. Patient is in no felicia arent distress. Patient is well-developed. Eyes: Pupils are equal round and reactive to light. Conjunctivae are normal. Anicteric sclera. Ears nose, mouth and throat: Mallampati class 2. Normal posterior oropharynx. Uvula is midline. Neck: Trachea is midline. Visual inspection is normal. Respiratory: Clear to auscultation bilaterally. No use of accessory muscles. No significant clubbing noted. Cardiovascular: Regular rate and rhythm. No murmurs. No edema. Gastrointestinal: Normal bowel sounds, soft, nontender and nondistended. No hepatosplenomegaly noted. Musculoskeletal: No cyanosis. Patient is able to move all extremities. Strength is 5 out of 5 in the upper and lower extremities. Skin: No rashes, warm dry and intact. Neurologic: No obvious focal neurological deficits seen. Psychiatric: Alert and oriented x3 with a euthymic affect. Results & Data Results & Data Vital Signs (Past 12 Hours) Vital Signs Temp Pulse Pulse Resp BP Pulse Ox O2 Del Method 02/15/23 16:12 37.1 C 83 24 148/98 H 94 Room Air 02/15/23 12:00 36.8 C 95 H 24 153/99 H 95 Room Air 02/15/23 08:00 37.0 C 87 24 130/94 94 Room Air 02/15/23 08:00 78 02/15/23 09:09 Room Air PG Care Time/CCT Total # of Minutes Spent Total Time Spent with Patient: Total time spent is greater than 50% in coordination of care (as documented) at patient's floor/unit and/or counseling patient: Coding Level of Care Code 50635 SUB INP/OBS CARE 05/25MIN Diagnoses Acute cor pulmonale due to saddle embolus of pulmonary artery I26.02 Right leg DVT I82.401 Thrombocytopenia D69.6 Alcoholism F10.20
[2023-02-16 06:32] LABS: Partial Thromboplastin Ratio 1.6
[2023-02-16] MEDS: HEPARIN SODIUM/DEXTROSE 25,000 UNITS/500 ML BAG IV SCH (08:57)
[2023-02-16] MEDS: FOLIC ACID 1 MG TAB PO SCH (08:57)
--- NOTE | 2023-02-16 12:59 | Hospitalist Progress Note ---
Date of Service February 16, 2023 Assessment & Plan (1) Saddle pulmonary embolus: Plan: Saddle pulmonary embolus with numerous b/l PEs in main PAs along with segmental and sub-segmental arteries Secondary to DVT from right popliteal, posterior tibial and peroneal veins Submassive - no shock, tachycardia, etc. Suspect PEs are subacute - he has been short of breath for several weeks. Likely was throwing PEs during that time frame. Dopplers + RLE DVT. Although patient reports he was not sedentary until his breathing got worse a few weeks ago, his daughter reports that he is in fact very sedentary on most days for a long period of time. Echo returned with acute cor pulmonale but preserved LV function. Plan - * Switch over heparin drip to Lisa ricketts * Pulmonary on board. Agrees with the plan. * although he has been sedentary, I would still pursue occult malignancy w/u in the future - including but not limited to EGD, colonoscopy, PSA, etc - to r/o hypercoagulability from cancer. Will need outpatient hematology follow-up * he denies any recent COVID infection 2017 - PE event. Prothrombin gene mutation, factor V Leiden mutation, homocysteine level - negative or normal. Protein C and S levels were mildly low in the setting of his acute VTE. Protein C and Protein S levels were repeated 06/2017 OFF of anticoagulation - normal levels (91, 69 respectively). Anti-thrombin 3 activity was slightly low but checked at the time of his 2017 VTE. Antiphospholipid ab's were negative. Thus, no genetic or heritable cause found. Completed 3 months of coumadin in 2017 for his VTE event. Will need outpatient hematology follow-up (2) Acute cor pulmonale due to saddle embolus of pulmonary artery: Plan: echo c/w acute cor pulmonale fortunately he is hemodynamically stable with normal BP he is not hypoxic (3) Right leg DVT: Plan: as seen on dopplers cont heparin drip (4) Alcoholism: Plan: For etoh withdrawal prophylaxis -- Phenobarbital 20 mg IV load x1, followed by 60 mg TID x 1 day, 30 mg TID x 1 day, 30 mg twice daily for 1 day, then 30 mg daily for 1 day, then stop Continue AWSS monitoring. Doing well overall from an alcohol withdrawal standpoint. Thiamine / folate supplementation Telemetry (5) Pre-syncope: Plan: 2nd to submassive PEs and acute cor pulmonale Trend BPs (6) Hypothyroidism: Plan: Previously on Synthroid now no longer on such (7) Elevated troponin: Plan: 2nd to right heart strain from submassive PEs BNP also elevated consistent with right heart strain he has no evidence of pulmonary edema no evidence of ischemia (8) Hypomagnesemia: Plan: Replaced (9) Hypokalemia: Plan: replaced (10) Macrocytic anemia: (11) Thrombocytopenia: Plan: 2nd to direct toxic effects of alcohol Stable platelet count thus far No evidence of bleeding Proceed with heparin drip cautiously Plan I was informed that the patient has been having frequent falls. Awaiting PT/OT and case management for discharge planning. Patient will be medically stable for discharge tomorrow Admission and Anticipated Discharge Date Admission Date: February 12, 2023 Subjective patient is feeling well overall. Review of Systems Review of Systems: All systems reviewed & are unremarkable except as noted in Subjective Physical Exam Physical Exam: General: Awake, conversant Heart: S1, S2/regular rate and rhythm, no murmur rubs or gallops Lungs: Clear to auscultation bilaterally. Normal effort Abdomen: Soft/nontender/nondistended. No hepatosplenomegaly Extremities: No clubbing/cyanosis. No edema Behavior: Appropriate, cooperative Results & Data Results & Data Vital Signs (Past 12 Hours) Vital Signs Temp Pulse Pulse Resp BP BP Pulse Ox 02/16/23 11:31 36.6 C 81 19 152/77 H 97 02/16/23 08:00 77 02/16/23 07:13 36.5 C 80 19 156/93 H 94 02/16/23 02:20 36.5 C 81 16 168/100 H 96 O2 Del Method 02/16/23 11:31 Room Air 02/16/23 08:00 02/16/23 07:13 Room Air 02/16/23 02:20 Room Air Laboratory Results Abnormal lab results 02/16/23 Range/Units 05:21 APTT 45.0 H* (21.0-31.0) Seconds PG Care Time/CCT Total # of Minutes Spent Total Time Spent with Patient: Total time spent is greater than 50% in coordination of care (as documented) at patient's floor/unit and/or counseling patient: Coding Level of Care Code 65709 SUB INP/OBS CARE 2/35MIN Diagnoses Saddle pulmonary embolus I26.92 Acute cor pulmonale due to saddle embolus of pulmonary artery I26.02 Right leg DVT I82.401 Alcoholism F10.20 Pre-syncope R55 Hypothyroidism E03.9 Elevated troponin R79.89 Hypomagnesemia E83.42 Hypokalemia E87.6 Macrocytic anemia D53.9 Thrombocytopenia D69.6
[2023-02-16] MEDS: APIXABAN 5 MG TABLET PO SCH (20:59)
[2023-02-16] MEDS ORDERED: STOP ORDER [HEPARIN DRIP] ONE (20:59)
[2023-02-17] MEDS ORDERED: APIXABAN 5 MG TABLET PO SCH
[2023-02-17] MEDS: FOLIC ACID 1 MG TAB PO SCH (08:32)
[2023-02-17] MEDS: APIXABAN 5 MG TABLET PO SCH (08:32)
[2023-02-17 11:44] VITALS: BP 162/92; RESP 18; TEMP 97.7; O2SAT 95
[2023-02-17] MEDS ORDERED: Nursing to Pharmacy Communication SCH (11:45)
--- NOTE | 2023-02-17 11:49 | Discharge Summary ---
Date of Service February 17, 2023 Admission HPI Per Admitting Provider 1 months of dyspnea, presyncope. Progressively worsening dyspnea and with some episodes of lightheadedness with 1 episode of syncope 3 days ago which presented him to come in for evaluation. Feels similar to an episode of pulmonary emboli he had several years ago after he broke a few ribs no leg swelling no recent long trips no injuries or trauma no tobacco No chest pain, chest pressure. No inspiratory pain. He has not short of breath at rest, but is easily fatigued with exertion no family history of blood clots Did have 1 episode of syncope 3 days ago. Had prodome then passed out. OWas out for a few months < at most. No incontinence. History of blood clots with PEs a few years ago after he fell and broke ribs, developed post-traumatic lcots. Was on a blood thinner for 'a short time a few months.' Etoh- half gallon of vodka q3-4d. 1 drink yesterday ~3:30, none the day before,. Has not been more than 3 days without alcohol for as long as he can remember, liquor intake equates out to approximately a handle every other day on average sometimes more sometimes less. No history of seizure Medical History: Reviewed Medications: Reviewed Surgical History: Reviewed Family history: Reviewed Allergies: Reviewed Social History: Alcohol intake as noted, high risk Code Status: DNR/DNI Admission Exam Per Admitting Provider General: A&Ox3. NAD. Cooperative. HEENT: Atraumatic, normocephalic. Vision/hearing intact Pulm: Diminished, grossly clear. symmetrical chest rise. No increased work of breathing. No respiratory distress. Cardiac: RRR, -mrg. Radial pulses intact and symmetrical. Abdominal: Nontender, nondistended, soft. BS present. Extremities: Bilateral pedal edema is present, no calf asymmetry. He is not tremulous Principal Diagnosis 1. Saddle PE due to right lower extremity DVT. Being discharged on Eliquis 2. Alcohol abuse 3. Fall risk 4. Acute cor pulmonale due to saddle embolus Discharge Exam General: Awake, conversant Heart: S1, S2/regular rate and rhythm, no murmur rubs or gallops Lungs: Clear to auscultation bilaterally. Normal effort Abdomen: Soft/nontender/nondistended. No hepatosplenomegaly Extremities: No clubbing/cyanosis. No edema Behavior: Appropriate, cooperative Discharge Data Allergies Allergy/AdvReac Type Severity Reaction Status Date / Time No Known Allergies Allergy Unverified 10/27/21 13:05 Consultations 02/12/23 12:13 ED Decision to Admit Stat 02/13/23 20:49 Consult Pulmonology Routine Ordered Studies 02/12/23 11:40 CT for pulmonary embolism PE [CT angio chest PE protocol] Stat 02/13/23 07:13 US venous doppler LE Routine Hospital Course (1) Saddle pulmonary embolus: Saddle pulmonary embolus with numerous b/l PEs in main PAs along with segmental and sub-segmental arteries Secondary to DVT from right popliteal, posterior tibial and peroneal veins Submassive - no shock, tachycardia, etc. Suspect PEs are subacute - he has been short of breath for several weeks. Likely was throwing PEs during that time frame. Dopplers + RLE DVT. Although patient reports he was not sedentary until his breathing got worse a few weeks ago, his daughter reports that he is in fact very sedentary on most days for a long period of time. Echo returned with acute cor pulmonale but preserved LV function. Plan - * patient will be discharged on p.o. Eliquis * pulmonary was involved during this hospital stay * although he has been sedentary, I would still pursue occult malignancy w/u in the future - including but not limited to EGD, colonoscopy, PSA, etc - to r/o hypercoagulability from cancer. Will need outpatient hematology follow-up * he denies any recent COVID infection 2017 - PE event. Prothrombin gene mutation, factor V Leiden mutation, homocysteine level - negative or normal. Protein C and S levels were mildly low in the setting of his acute VTE. Protein C and Protein S levels were repeated 06/2017 OFF of anticoagulation - normal levels (91, 69 respectively). Anti-thrombin 3 activity was slightly low but checked at the time of his 2017 VTE. Antiphospholipid ab's were negative. Thus, no genetic or heritable cause found. Completed 3 months of coumadin in 2017 for his VTE event. Will need outpatient hematology follow-up (2) Acute cor pulmonale due to saddle embolus of pulmonary artery: echo c/w acute cor pulmonale fortunately he is hemodynamically stable with normal BP he is not hypoxic Rest and exercise test was performed today. He is not requiring any home oxygen. (3) Right leg DVT: as seen on dopplers cont heparin drip (4) Alcoholism: Was treated with phenobarbital for alcohol withdrawal prophylaxis Continue AWSS monitoring. Doing well overall from an alcohol withdrawal standpoint. Thiamine / folate supplementation Telemetry (5) Pre-syncope: 2nd to submassive PEs and acute cor pulmonale Trend BPs (6) Hypothyroidism: Previously on Synthroid now no longer on such (7) Elevated troponin: 2nd to right heart strain from submassive PEs BNP also elevated consistent with right heart strain he has no evidence of pulmonary edema no evidence of ischemia (8) Hypomagnesemia: Replaced (9) Hypokalemia: replaced (10) Macrocytic anemia: (11) Thrombocytopenia: 2nd to direct toxic effects of alcohol Stable platelet count thus far No evidence of bleeding Proceed with heparin drip cautiously Plan PT/OT cleared the patient for discharge to home Total Time Total Time Spent Total Time Spent (In Minutes): 35 Discharge Plan Discharge Items Patient Disposition: Home - Self-Care Reason For Visit: SADDLE PE, ETOH WITHDRAWAL RISK Discharge Diagnosis: 1. Saddle PE due to right lower extremity DVT. Being discharged on Eliquis 2. Alcohol abuse 3. Fall risk 4. Acute cor pulmonale due to saddle embolus Activity: As commented below Activity Comment: per PT/OT recommendations Non-emergency contact: Primary Care Provider Call non-emergency contact if: you have any medication questions and your symptoms worsen Follow-up/Referrals: Barrett Tavera DO [Primary Care Provider] - 02/24/23 1:00 pm Diet: Heart Healthy Addtl Attending Provider Instructions: 1. Follow-up with PCP in 1 week 2. Advised to note that you will need an echocardiogram done in 3 months 3. Please note that you are being discharged on Eliquis which is a blood thinner to treat your blood clots. 4. Advised to stop drinking alcohol. Pending Studies at Discharge: No Stand-Alone Forms: [facility] Medications and DC Order Prescriptions: New Eliquis 5 mg Tablet 10 mg PO BID Qty: 72 0RF Rx Instructions: Take 2 tabs twice daily for 6 days until 10/25 am then switch to 1 tab twice daily from 10/25 pm Continued multivitamin Tablet 1 tab PO DAILY Discharge Orders: Discharge Order (Routine); Ordered 02/17/23 Ordered By: Nick Ayala Admission Data Admit Date/Time: 02/12/23 13:13 Attending Provider: Nick Ayala Admit Provider: Charles Gallardo Primary Care Provider: Barrett Tavera Other Providers: Charles Gallardo ; Bobby Graham Other Interventions: Discharge Summary Assessment (RN) Last Done: 02/17/23 12:14 Coding Level of Care Code 51858 INP/OBS DISCH >30 MIN Diagnoses Saddle pulmonary embolus I26.92 Acute cor pulmonale due to saddle embolus of pulmonary artery I26.02 Right leg DVT I82.401 Alcoholism F10.20 Pre-syncope R55 Hypothyroidism E03.9 Elevated troponin R79.89 Hypomagnesemia E83.42 Hypokalemia E87.6 Macrocytic anemia D53.9 Thrombocytopenia D69.6
[2023-02-17 12:15] VITALS: PULSE 91
== END 2023-02-17 13:11 | disposition home or self-care (01) | DRG 299 ==
LOC: ED 09:45 → 1E 13:13 → SUATTDRO 13:13 → 1E 14:54 → 2S 02-15 22:27
DX: I82.451 Acute embolism and thrombosis of right peroneal vein; I82.441 Acute embolism and thrombosis of right tibial vein; D53.9 Nutritional anemia, unspecified; I82.431 Acute embolism and thrombosis of right popliteal vein; F10.20 Alcohol dependence, uncomplicated; I26.02 Saddle embolus of pulmonary artery with acute cor pulmonale; D69.6 Thrombocytopenia, unspecified; R79.89 Other specified abnormal findings of blood chemistry; Z66 Do not resuscitate; E83.42 Hypomagnesemia